=== PATIENT | female | born 1985 | race Caucasian/White ===

== ENCOUNTER 2021-05-20 13:34 | Outpatient (REF) | payer OTHER, SELFPAY ==
[2021-05-21 05:24] LABS: CT PCR NOT DETECTED (Not Detect.); NG PCR NOT DETECTED (Not Detect.)
[2021-05-22 17:00] LABS: HPV mRNA E6/E7 rflx Not Detected (Not Detected)
== END 2021-05-20 13:35 | disposition home or self-care (01) ==
LOC: HO.LAB 13:34
PROVIDERS: PCP Internal Medicine; Visit Provider Obstetrics & Gynecology
DX: Z01.419 Encounter for gynecological examination (general) (routine) without abnormal findings (principal); Z11.3 Encounter for screening for infections with a predominantly sexual mode of transmission; Z11.51 Encounter for screening for human papillomavirus (HPV); N94.6 Dysmenorrhea, unspecified
CPT/HCPCS: 87491; 87591; 87624; 88142

== ENCOUNTER 2021-05-27 09:35 | Outpatient (REF) | payer OTHER, SELFPAY ==
--- NOTE | ~2021-05-27 | US_ITS ---
EXAMINATION: US PELVIC AND TRANSVAGINAL CLINICAL INFORMATION: Dysmenorrhea. COMPARISON: None TECHNIQUE: Transabdominal and transvaginal pelvic ultrasound was performed. Transvaginal exam was performed for better visualization of the uterus and ovaries. FINDINGS: The uterus is anteverted and measures 8.4 x 4.4 x 5.5 cm in dimension. There is a 2 x 1.8 x 1.7 cm hypoechoic lesion in the posterior fundus of the uterus suggestive of a small fibroid. No other focal lesion is seen. The endometrium does not appear thickened measuring 0.3 cm. The ovaries are normal in size. The right ovary measures 3.4 x 2.3 x 2.5 cm and the left ovary measures 3.2 x 2.1 x 3 cm. The ovaries have a polycystic appearance with multiple small peripheral cysts or follicles. There is trace fluid in the pelvis US/US pelvic and transvaginal IMPRESSION: Small uterine fibroid. The ovaries are normal in size but have a polycystic appearance with multiple small peripheral cysts or follicles.
== END 2021-05-27 09:36 | disposition home or self-care (01) ==
LOC: HO.HMGCX 09:35
PROVIDERS: PCP Internal Medicine; Visit Provider Obstetrics & Gynecology
DX: N94.6 Dysmenorrhea, unspecified (principal)
CPT/HCPCS: 76830; 76856

== ENCOUNTER → 2021-06-03 15:52 | Outpatient (BNVA) | payer OTHER, SELFPAY | PROVIDERS: PCP Internal Medicine; Visit Provider Obstetrics & Gynecology ==

== ENCOUNTER 2022-07-24 08:56 | Outpatient (REF) | payer OTHER, SELFPAY ==
[2022-07-24 11:32] LABS: MANUAL DIFF FLAG NO
[2022-07-24 11:44] LABS: Basophils Percent Auto 0.8 % (0-2); Eosinophils Absolute Auto 0.2 X10*3/uL (0.0-0.4); Eosinophils Percent Auto 3.4 % (0-4); Hematocrit 39.9 % (37.0-47.0); Hemoglobin 13.3 g/dl (12.0-16.0); Imm Gran Abs Auto 0.01 X10*3/uL (0.00-0.03); Imm Gran Pct Auto 0.2 % (0.0-0.4); Lymphocytes Absolute Auto 1.3 X10*3/uL (1.2-4.9); Lymphocytes Percent Auto 26.5 % (20-40); Mean Corpuscular HGB Conc 33.3 g/dl (31.0-35.0); Mean Corpuscular Hemoglobin 31.4 pg (27.0-33.0); Mean Corpuscular Volume 94.3 fL (80.0-98.0); Monocytes Absolute Auto 0.5 X10*3/uL (0.1-1.2); Neutrophils Percent Auto 60.1 % (45-73); Platelet Count 243 X10*3/uL (160-400); Red Blood Count 4.23 X10*6/uL (4.20-5.50); Red Cell Distribution Width 12.6 % (11.0-16.0)
[2022-07-24 12:09] LABS: Alanine Aminotransferase 14 U/L (0-31); Albumin Level 4.7 g/dL (3.5-5.0); Alkaline Phosphatase 34 U/L (39-117); Anion Gap 15 (12-20); Aspartate Amino Transferase 15 U/L (5-31); Bilirubin Total 0.7 mg/dL (0.0-1.0); Blood Urea Nitrogen 14 mg/dL (9-16); Calcium 9.7 mg/dL (8.4-10.2); Carbon Dioxide 24 mmol/L (22-29); Chloride 104 mmol/L (96-108); Cholesterol 199 mg/dL; Estimated Glomerular Filt Rate > 60; Glucose Fasting 101 mg/dL (60-99); HDL Cholesterol 62 mg/dL; Iron 118 mcg/dL (30-160); LDL Cholesterol Calculated 127 mg/dl; Percent Iron Saturation 39 % (15-50); Sodium 139 mmol/L (135-145); Total Iron Binding Capacity 306 mcg/dL (228-428); Total Protein 7.6 g/dL (6.5-8.0); Triglycerides 51 mg/dL; Unsaturated Iron Binding 188 ug/dL
== END 2022-07-24 08:57 | disposition home or self-care (01) ==
LOC: HO.HMGCLDS 08:56
PROVIDERS: PCP Internal Medicine; Visit Provider Internal Medicine
DX: N94.6 Dysmenorrhea, unspecified (principal); D23.9 Other benign neoplasm of skin, unspecified
CPT/HCPCS: 36415; 80053; 80061; 83540; 85025

== ENCOUNTER 2022-12-09 11:40 | Outpatient (REF) | payer OTHER, SELFPAY ==
[2022-12-09 14:55] LABS: TSH reflex Free T4 1.49 uIU/mL (0.32-4.0); Vitamin D 25-OH Total 23.3 ng/mL (>30)
[2022-12-10 10:13] LABS: Follicle Stimulating Hormone 6.1 mIU/mL
== END 2022-12-09 11:41 | disposition home or self-care (01) ==
LOC: HO.HMGCLDS 11:40
PROVIDERS: PCP Internal Medicine; Visit Provider Internal Medicine
DX: E28.319 Asymptomatic premature menopause (principal); E55.9 Vitamin D deficiency, unspecified
CPT/HCPCS: 36415; 82306; 83001; 84443

== ENCOUNTER → 2023-03-02 11:51 | Outpatient (BNVA) | payer OTHER, SELFPAY | PROVIDERS: PCP Internal Medicine; Visit Provider Obstetrics & Gynecology ==

== ENCOUNTER 2023-03-16 11:29 | Outpatient (REF) | payer OTHER, SELFPAY ==
--- NOTE | ~2023-03-16 | US_ITS ---
EXAMINATION: US PELVIS CLINICAL INFORMATION: Myeloma; the last menstrual period is not specified. COMPARISON: Pelvic ultrasound dated 05/27/2021. TECHNIQUE: Ultrasound of the pelvis is performed using both transabdominal and transvaginal transducers along with Doppler. Transvaginal imaging is performed due to inadequate visualization transabdominally. FINDINGS: Uterus: The uterus is anteverted and measures 8.4 x 4.6 x 5.1 cm. The uterus is retroverted and retroflexed. The double wall endometrial thickness is 0.5 mm. The uterus is smooth in contour and has normal myometrial echogenicity. In the posterior fundus, a 1.8 x 1.1 x 1.4 cm myometrial fibroid is noted. This is heterogeneously hypoechoic. On the comparison examination, this measured 2.1 x 1.7 x 1.7 cm. Nabothian cysts are seen within the cervix. Adnexa: Both ovaries are visualized. There is normal color flow to the adnexa. There is no ovarian torsion. There is no pelvic ascites or fluid collection. Right ovary measures 3.3 x 3.1 x 4.0 cm, volume 21.8 mL. The right ovary contains a 2.1 x 2.4 x 2.7 cm dominant, simple follicle. Left ovary measures 3.3 x 2.3 x 2.1 cm, volume 8.3 mL. US/US pelvic and transvaginal IMPRESSION: 1. A uterine fibroid is redemonstrated, as detailed. 2. Nabothian cysts are seen within the cervix. 3. A right ovarian 2.7 cm dominant follicle is noted, which requires no imaging follow-up.
== END 2023-03-16 11:30 | disposition home or self-care (01) ==
LOC: HO.US 11:29
PROVIDERS: PCP Internal Medicine; Visit Provider Obstetrics & Gynecology
DX: D21.9 Benign neoplasm of connective and other soft tissue, unspecified (principal)
CPT/HCPCS: 76830; 76856

== ENCOUNTER → 2023-04-20 12:38 | Outpatient (BNVA) | payer OTHER, SELFPAY | PROVIDERS: PCP Internal Medicine; Visit Provider Obstetrics & Gynecology | DX: D25.9 Leiomyoma of uterus, unspecified (principal); N88.8 Other specified noninflammatory disorders of cervix uteri; N94.6 Dysmenorrhea, unspecified; Z80.3 Family history of malignant neoplasm of breast | CPT/HCPCS: 99212 ==

== ENCOUNTER 2023-05-04 11:10 | Outpatient (REF) | payer OTHER, SELFPAY ==
--- NOTE | ~2023-05-04 | MR_ITS ---
EXAMINATION: MR BREAST WITHOUT AND WITH CONTRAST, BILATERAL CLINICAL INFORMATION: High-risk screening. Family history of malignant neoplasm of breast. History of dense tissue. Patient questionnaire indicates mother age 28, maternal grandmother age 74, paternal aunt age 67. COMPARISON: None available. Mammography (nondiagnostic monitor review): None available. TECHNIQUE: A 1.5 T system and a dedicated breast coil. T1-weighted sequences without fat-saturation were obtained prior to the administration of contrast. Fat-saturated T1 and T2-weighted sequences were also acquired. The patient received 5.5 mL of IV gadolinium-based contrast, Gadavist. Multiple sequential dynamic T1-weighted sequences were obtained through both breasts with fat-saturation. Subtracted images were reviewed. CAD postprocessing with 3-D reconstructions, maximum intensity projections and kinetic analysis was performed by the interpreting radiologist at an independent workstation and reviewed as a portion of this exam. FINDINGS: Amount of Remaining Fibroglandular Signal: There is extreme fibroglandular tissue, which lowers the sensitivity of mammography (ACR BI-RADS breast composition category D).* Background Parenchymal Enhancement: Moderate. Symmetry of Background Enhancement: Symmetric. RIGHT BREAST: There is a slightly poorly defined 0.5 cm enhancing mass in the lower inner right breast 2.1 cm from the nipple (series 8, image 62; series 9, image 72). This demonstrates persistent enhancement. Masses: There are no other suspicious enhancing masses. Non-mass Enhancement: There is a 0.5 cm area of non-mass enhancement in the lower outer right breast, approximately 1 cm from the nipple (series 8, image 25; series 9, image 75). This demonstrates subthreshold persistent enhancement. Focus: There are 2 enhancing foci in the upper outer right breast which demonstrate persistent low-level enhancement and are nonspecific. Non-enhancing Findings: Associated Findings: There are no suspicious associated findings. Kinetic Curve Assessment: Initial Phase: There are no suspicious areas of color signal. Delayed Phase: There are no areas of washout kinetics. LEFT BREAST: There are no suspicious findings. Masses: There are no suspicious enhancing masses. Non-mass Enhancement: There is no suspicious non-mass enhancement. Focus: There is a 0.4 cm enhancing focus in the 4 o'clock position, 3.4 cm from the left nipple (series 9, image 28; series 8, image 245; series 100, image 65). This demonstrates plateau-type kinetics. Non-enhancing Findings: Associated Findings: There are no suspicious associated findings. Kinetic Curve Assessment: Initial Phase: There are no areas of suspicious color signal. Delayed Phase: There are no areas of washout kinetics. The axillary lymph nodes are morphologically normal. No suspicious internal mammary lymph nodes are seen. No suspicious abnormality in the visualized portions of chest or abdomen. MR/MR breast BI wo/w con IMPRESSION: No mammography available for comparison. There is a 0.5 cm enhancing mass in the lower inner right breast, 2.1 cm from the nipple. This is mildly suspicious. Recommend direct comparison with previous mammogram. Consider diagnostic tomosynthesis and targeted MR-directed right breast ultrasound. If there is no mammographic or sonographic correlate, consider MR-guided biopsy. Additional small areas of enhancement in each breast are probably benign and can be reexamined at the time of MRI in 6-12 months. ASSESSMENT: Right Breast: ACR BI-RADS 4: Suspicious abnormality - biopsy should be considered. Left Breast: ACR BI-RADS 3: Probably benign finding - short-interval follow up. RECOMMENDATIONS: Recommend direct comparison with previous tomosynthesis. Recommend diagnostic right mammography with tomosynthesis and MR-directed diagnostic right breast ultrasound. If there are no targetable abnormalities demonstrated on diagnostic evaluation, consider MR-guided biopsy right breast.
== END 2023-05-04 11:11 | disposition home or self-care (01) ==
LOC: HO.MRI 11:10
PROVIDERS: PCP Internal Medicine; Visit Provider Obstetrics & Gynecology
DX: N64.89 Other specified disorders of breast (principal); Z80.3 Family history of malignant neoplasm of breast
CPT/HCPCS: 77049; A9585

== ENCOUNTER 2023-05-15 09:49 | Outpatient (AMB) | payer OTHER, SELFPAY ==
--- NOTE | 2023-05-15 09:50 | MHC.OFFVIS ---
Intake Vital Signs 05/15/23 09:59 Height 5 ft 4.5 in Weight 124 lb 2 oz BMI 21.0 BP 121/75 Blood Pressure Location Lt brachial Position Sitting Pulse 93 Intake Visit Reasons: RT breast masses on MRI - family hx, breast ca Intake Note: Patient is seen in office for family history of breast cancer, following right breast masses on MRI. Patient c/o: does not feel any lump or bumps in the breast, does self exams every month, no prior breast surgeries or concerns, yes to breast feeding with no complications Wool Supplier Required: No Accompanied by: Self / Same As Patient Allergies lorazepam [From Ativan] Adverse Reaction (Mild, Verified 05/15/23 09:51) Vomiting sulfamethoxazole [From Bactrim] Adverse Reaction (Unknown, Verified 05/15/23 09:51) vomitting trimethoprim [From Bactrim] Adverse Reaction (Unknown, Verified 05/15/23 09:51) vomitting Medication List - Last Reconciled 05/18/23 by Miguel Seo MD No Known Home Meds HPI HPI Comments History of Present Illness Details 38-year-old female patient presenting with a recent breast MRI which revealed suspicious findings in the right breast. She has a strong family history of breast cancer including her mother developed breast cancer the age of 28, her maternal grandmother developed breast cancer at 74 and a paternal aunt developed breast cancer the age of 67. She denies a previous history of breast problems or breast surgery. She denies any breast symptoms in either breast. A recent MRI performed due to her high risk status performed on 05/04/2023 revealed a 0.5 cm enhancing mass in the lower inner right breast direct comparison with previous mammogram was recommended as well as considering diagnostic tomosynthesis and targeted MR directed right breast ultrasound. If there is no mammographic or sonographic correlate consider MR guided biopsy. She is and breastfed her 2 children. Menarche was at the age of 13. She is interested in having genetic testing as well. [facility] Medical History Calcific tendinitis Dysmenorrhea Left breast mass Normal Pap smear Surgical History H/O hernia repair History of endometrial ablation (2015) Family History Mother Breast cancer, Onset Age: 28 Father Asthma Substance use disorder Maternal Grandmother Breast cancer, Onset Age: 74 Paternal Aunt Breast cancer, Onset Age: 60 Paternal Uncle Substance use disorder Paternal Grandfather Substance use disorder Social History Household Members Other:: lives with partner, trying to quit smoking, cleans exercise, 2 boys (18,13) Housing: Apartment Alcohol intake: never Patient Tobacco Use Status: Former Tobacco user Quit Date: 10/27/2022 Tobacco use type: Cigarette Cigarettes Per Day: 5 Years Smoked: 23 e-Cigarette/Vaping Use: Never Used service: No Current occupational status: employed Cognitive needs: No Hearing needs: No Vision needs: No Female Reproductive History Menstrual Age of Menarche: 13 Date of last menstrual period: 09/25/16 Total pregnancies: 4 Number of Living Children: 2 Ab induced: 1 Ab spontaneous: 1 Review of Systems Const All systems reviewed & are unremarkable except as noted in HPI and below Denies chills, Denies fever(s), Denies headache(s), Denies poor appetite and Denies weakness ENT Denies headache(s) Card Denies chest pain, Denies irregular heart rhythm, Denies palpitations and Denies dyspnea Resp Denies cough, Denies excessive phlegm production and Denies dyspnea GI Denies abdominal pain, Denies bloating, Denies change in bowel habits, Denies constipation, Denies heartburn, Denies diarrhea, Denies nausea and Denies vomiting Denies urinary frequency Musc Denies back pain, Denies muscle weakness and Denies numbness Skin/Breast Denies changing lesions and Denies unusual bruising Neuro Denies headache(s), Denies numbness, Denies paresthesias and Denies weakness Psych Denies anxiety and Denies depression Endo Denies palpitations Shay/Lymph Denies lymphadenopathy Physical Exam Vital Signs: Last Vital Signs Pulse 93 05/15/23 09:59 BP 121/75 05/15/23 09:59 BMI result Body Mass Index 21.0 Const General: cooperative and no acute distress Nutritional Appearance: well nourished Orientation/consciousness: patient oriented x3 Limitations: no limitations HEENT Head: Yes normocephalic and Yes atraumatic Ears: hearing grossly normal bilaterally Chest Other: Left breast: No skin change, no nipple retraction, no nipple discharge, no palpable mass, no enlarged lymph nodes. Right breast: No skin change, no nipple retraction, no nipple discharge, no palpable mass, no enlarged lymph nodes Resp Effort & Inspection: normal respiratory effort, no audible wheezes, no cough and no respiratory distress Cardio Jugular venous distension: no JVD GI Inspection: Yes normal to inspection Skin Other: Warm, dry, no rash Neuro General: patient oriented x3 Extrem General: Yes no clubbing, cyanosis or edema Assessment & Plan Assessment & Plan (1) Abnormal magnetic resonance imaging of right breast: Code(s): R92.8 - Other abnormal and inconclusive findings on diagnostic imaging of breast Plan 38-year-old female patient considered to be high risk for breast cancer due to strong family history including her mother, grandmother and paternal aunt. She started high risk screening including breast MRI evaluation. This revealed a suspicious area in the right breast and diagnostic mammography and ultrasound is recommended the right breast. We discussed the possibility of either MR, ultrasound or stereotactic guided core biopsies based on the test results. We also discussed the risks and benefits of genetic testing in detail. She consents the genetic testing and will undergo this today. I suggested she return in approximately 6 weeks to review the genetic testing results. I will call her with the results of the mammogram and ultrasound to discuss next steps. She expressed understanding and agrees with the plan. Orders: Orders MM diagnostic mammo unilat RT 05/15/23 R92.8 - Other abnormal and inconclusive findings on diagnostic imaging of breast US breast RT limited 05/15/23 R92.8 - Other abnormal and inconclusive findings on diagnostic imaging of breast Quality Reporting (2020) Adult ([facility] ) Smoking risk assessment performed?: Yes Patient Tobacco Use Status: Former Tobacco user Coding Level of Care Code New Pt Level 4 (81839) Diagnoses Abnormal magnetic resonance imaging of right breast R92.8
[2023-05-15 09:59] VITALS: BP 121/75; PULSE 93; BMI 21.0
== END 2023-05-15 10:19 | disposition home or self-care (01) ==
PROVIDERS: PCP Internal Medicine; Visit Provider Surgery
DX: R92.8 Other abnormal and inconclusive findings on diagnostic imaging of breast (principal); Z80.3 Family history of malignant neoplasm of breast
CPT/HCPCS: 99204

== ENCOUNTER → 2023-05-15 09:49 | Outpatient (BNVA) | payer OTHER, SELFPAY | PROVIDERS: PCP Internal Medicine; Visit Provider Surgery | DX: R92.8 Other abnormal and inconclusive findings on diagnostic imaging of breast (principal); Z85.3 Personal history of malignant neoplasm of breast | CPT/HCPCS: 99202 ==

== ENCOUNTER 2023-05-25 09:24 | Outpatient (REF) | payer OTHER, SELFPAY ==
--- NOTE | ~2023-05-25 | MM_ITS ---
EXAMINATION: MM DIAGNOSTIC DIGITAL BREAST TOMOSYNTHESIS, BILATERAL WITH RIGHT BREAST ULTRASOUND CLINICAL INFORMATION: 38-year-old female who underwent bilateral breast MRI on 05/04/2023. At that time, a 5 mm enhancing mass was identified in the lower inner quadrant of the right breast approximately 2 cm from the nipple. A bilateral mammogram and targeted ultrasound was advised. In the MRI report, it is noted that if no mammographic and/or sonographic correlation can be found, then MRI guided biopsy is advised. This patient has a family history of pre and postmenopausal breast cancer. The lifetime risk of breast cancer based on the Tyrer-Cuzick Model is 20.3%. COMPARISON: Mammography: This is a baseline mammogram MAMMOGRAPHY: TECHNIQUE: Digital breast tomosynthesis is performed in both the craniocaudal and mediolateral oblique views along with computer-aided detection (CAD). Synthesized 2D images are generated from the tomosynthesis. CC and lateral spot compression of the lower inner quadrant of the right breast was performed. FINDINGS: There are scattered areas of fibroglandular density (ACR BI-RADS breast composition Category b). There are no significant masses, abnormal calcifications, or other abnormalities. ULTRASOUND: Sonography of the lower inner quadrant of the right breast was performed. There is no focal finding in this region. MM/MM tomosynthesis diagnostic BI IMPRESSION: No mammographic signs of malignancy. No sonographic or mammographic correlates with the recent MRI finding at the lower inner quadrant of the right breast. Per the MRI report, an MRI guided biopsy is advised Results are provided to the patient at time of visit by the technologist. ASSESSMENT: BI-RADS BI-RADS 1 - Negative THIS REPORT'S BI-RADS DESIGNATION RELATES TO THIS EXAMINATION HOWEVER PLEASE NOTE THAT THE MRI BI-RADS CODE IS A BI-RADS 4-SUSPICIOUS. THAT CODE SHOULD DICTATE MANAGEMENT. RECOMMENDATION: Biopsy recommended an MRI guided biopsy is advised. This patient's information was entered into a reminder system with a target due date for their next mammogram.
== END 2023-05-25 09:25 | disposition home or self-care (01) ==
LOC: HO.MAMMO 09:24
PROVIDERS: PCP Internal Medicine; Visit Provider Surgery
DX: R92.8 Other abnormal and inconclusive findings on diagnostic imaging of breast (principal)
CPT/HCPCS: 76642; 77062; 77066

== ENCOUNTER → 2023-05-25 10:00 | Outpatient (BNV) | payer OTHER, SELFPAY | PROVIDERS: PCP Internal Medicine; Visit Provider Radiology Diagnostic Radiology | DX: N63.14 Unspecified lump in the right breast, lower inner quadrant (principal) | CPT/HCPCS: 76642; 77066 ==

== ENCOUNTER 2023-06-26 08:57 | Outpatient (AMB) | payer OTHER, SELFPAY ==
--- NOTE | 2023-06-26 08:58 | MHC.OFFVIS ---
Intake Vital Signs 06/26/23 09:05 Height 5 ft 4 in Weight 125 lb BMI 21.5 BP 136/60 Blood Pressure Location Lt brachial Position Sitting Pulse 69 Intake Visit Reasons: Abnormal MRI RT breast, biopsy results Intake Note: Patient is seen in office for biopsy results, following abnormal MRI of the right breast. 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 She has a strong family history of breast cancer including her mother developed breast cancer the age of 28, her maternal grandmother developed breast cancer at 74 and a paternal aunt developed breast cancer the age of 67. She denies a previous history of breast problems or breast surgery. She denies any breast symptoms in either breast. A recent MRI performed due to her high risk status performed on 05/04/2023 revealed a 0.5 cm enhancing mass in the lower inner right breast direct comparison with previous mammogram was recommended as well as considering diagnostic tomosynthesis and targeted MR directed right breast ultrasound. If there is no mammographic or sonographic correlate consider MR guided biopsy. She is and breastfed her 2 children. Menarche was at the age of 13. She is interested in having genetic testing as well. Targeted ultrasound did not reveal any suspicious findings therefore an MR guided biopsy was performed at [facility] in [place]. She returns today review the results. Biopsy revealed a nodular area of adenosis, microcysts, dilated ducts, and ductal hyperplasia, moderate without atypia. Fibroadenoma is change and background of ductal hyperplasia moderate without atypia was identified. Findings reviewed with the patient today. In addition genetic testing was reviewed with the patient. Genetic testing performed on 05/15/2023 revealed no clinically significant mutations identified. Her breast cancer risk score for remaining lifetime risk was calculated at 31.6%. 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 Copy of the report was provided to the patient. [facility] Medical History Calcific tendinitis Dysmenorrhea Left breast mass Normal Pap smear Surgical History H/O hernia repair History of endometrial ablation (2016) Family History Mother Breast cancer, Onset Age: 28 Father Asthma Substance use disorder Maternal Grandmother Breast cancer, Onset Age: 74 Paternal Aunt Breast cancer, Onset Age: 60 Paternal Uncle Substance use disorder Paternal Grandfather Substance use disorder Social History Household Members Other:: lives with partner, trying to quit smoking, cleans exercise, 2 boys (18,13) Housing: Apartment Alcohol intake: never Patient Tobacco Use Status: Former Tobacco user Quit Date: 10/27/2022 Tobacco use type: Cigarette Cigarettes Per Day: 5 Years Smoked: 23 e-Cigarette/Vaping Use: Never Used service: No Current occupational status: employed Cognitive needs: No Hearing needs: No Vision needs: No Female Reproductive History Menstrual Age of Menarche: 13 Review of Systems Const All systems reviewed & are unremarkable except as noted in HPI and below Physical Exam Vital Signs: Last Vital Signs Pulse 69 06/26/23 09:05 BP 136/60 06/26/23 09:05 BMI result Body Mass Index 21.5 Const General: comfortable Nutritional Appearance: well nourished Chest Other: Exam deferred Skin Other: Warm, dry, no rash Extrem Other: No edema Assessment & Plan Assessment & Plan (1) Abnormal magnetic resonance imaging of right breast: Code(s): R92.8 - Other abnormal and inconclusive findings on diagnostic imaging of breast (2) FH: breast cancer: Code(s): Z80.3 - Family history of malignant neoplasm of breast Plan Patient returns to review the MRI biopsy results. Pathology revealed benign findings without atypia or malignancy. Genetic testing was reviewed as well. Patient remains on a high risk protocol due to her family history. Follow-up MRI in 6 months was recommended. Patient will be due for annual mammography in April 2024. I recommended follow-up examination in 6 months, sooner p.r.n.. She expressed understanding and agrees with the plan. Orders: Orders MR breast BI wo/w con Today R92.8 - Other abnormal and inconclusive findings on diagnostic imaging of breast, Z80.3 - Family history of malignant neoplasm of breast Quality Reporting (2019) Adult ([facility] 138/12/[facility]) Smoking risk assessment performed?: Yes Patient Tobacco Use Status: Former Tobacco user Coding Level of Care Code Est Pt Level 3 (00058) Diagnoses Abnormal magnetic resonance imaging of right breast R92.8 FH: breast cancer Z80.3
[2023-06-26 09:05] VITALS: BP 136/60; PULSE 69; BMI 21.5
== END 2023-06-26 09:17 | disposition home or self-care (01) ==
PROVIDERS: PCP Internal Medicine; Visit Provider Surgery
DX: R92.8 Other abnormal and inconclusive findings on diagnostic imaging of breast (principal); Z80.3 Family history of malignant neoplasm of breast
CPT/HCPCS: 99213

== ENCOUNTER → 2023-06-26 08:57 | Outpatient (BNVA) | payer OTHER, SELFPAY | PROVIDERS: PCP Internal Medicine; Visit Provider Surgery | DX: R92.8 Other abnormal and inconclusive findings on diagnostic imaging of breast (principal); Z80.3 Family history of malignant neoplasm of breast | CPT/HCPCS: 99212 ==

== ENCOUNTER 2023-07-27 12:51 | Outpatient (AMB) | payer OTHER, SELFPAY ==
[2023-07-27 13:04] VITALS: BP 90/58; PULSE 67; O2SAT 99; BMI 21.3
--- NOTE | 2023-07-27 13:04 | MHC.PC.OV ---
Vital Signs 07/27/23 13:04 Height 5 ft 4 in Weight 124 lb BMI 21.3 BP 90/58 L Blood Pressure Location Lt brachial Position Sitting Pulse 67 Pulse Source Pulse Oximeter Pulse Oximetry (%) 99 Oxygen Delivery Method Room Air Intake Visit Reasons: Annual PE Intake Note: Pt is here today for PE. Allergies lorazepam [From Ativan] Adverse Reaction (Mild, Verified 07/27/23 13:09) Vomiting sulfamethoxazole [From Bactrim] Adverse Reaction (Unknown, Verified 07/27/23 13:09) vomitting trimethoprim [From Bactrim] Adverse Reaction (Unknown, Verified 07/27/23 13:09) vomitting Medication List - Last Reconciled 07/27/23 by Mari Juarez MD ascorbic acid (vitamin C) mg PO cholecalciferol (vitamin D3) 25 mcg PO DAILY multivitamin 1 tab PO DAILY Tobacco use date assessed: 07/27/23 Dental Screening Dental Screen Date: 07/27/23 Did you have a dental visit in the last 12 months?: Yes Did you have a dental problem in the last 6 months where you did not have access to dental care?: No Was dental information given to patient?: Patient has dentist HPI Annual PE HPI Details Patient presents for physical PFSH Medical History Left breast mass Dysmenorrhea Normal Pap smear Calcific tendinitis Surgical History History of endometrial ablation (2015) H/O hernia repair Family History Mother Breast cancer, Onset Age: 28 Father Asthma Substance use disorder Maternal Grandmother Breast cancer, Onset Age: 74 Paternal Aunt Breast cancer, Onset Age: 60 Paternal Uncle Substance use disorder Paternal Grandfather Substance use disorder Social History Household Members Other:: lives with partner, trying to quit smoking, cleans exercise, 2 boys (18,13) Housing: Apartment Alcohol intake: never Patient Tobacco Use Status: Former Tobacco user Quit Date: 10/27/2022 Tobacco use type: Cigarette Cigarettes Per Day: 5 Years Smoked: 23 e-Cigarette/Vaping Use: Never Used service: No Current occupational status: employed Cognitive needs: No Hearing needs: No Vision needs: No Female Reproductive History Menstrual Age of Menarche: 13 Questionnaire Thrive Questionnaire Date Thrive assessed: 12/09/22 I am a: Patient What is your living situation today?: I have a steady place to live Within the past 12 months, did the food you bought not last and you didn't have the money to get more?: Never true Within the past 12 months, did you worry whether your food would run out before you got money to buy more?: Never true AUDIT C Alcohol Use Questionnaire (AUDIT-C) 1. How often do you have a drink containing alcohol?: 2-4 times a month 2. How many drinks containing alcohol do you have on a typical day when you are drinking?: 1 or 2 3. How often do you have six or more drinks on one occasion?: Never Total Score: 2 MARY GRACE-7 AMB Questionnaire MARY GRACE-7 Date MARY GRACE - 7 assessed: 12/09/22 Feeling nervous, anxious, or on edge: 1 = Several days Not being able to stop or control worryin = Not at all Worrying too much about different things: 0 = Not at all Trouble relaxin = Several days Being so restless that it is hard to sit still: 1 = Several days Becoming easily annoyed or irritable: 0 = Not at all Feeling afraid as if something awful might happen: 0 = Not at all Total MARY GRACE-7 score (0-4 normal; 5-9 mild; 10-14 moderate; 15-21 severe): 3 Source: Developed by Drs. Jefry Saldivar, Stephanie Wesley, Christiano Huynh and colleagues, with an educational jake from [employer]. Review of Systems Const All systems reviewed & are unremarkable except as noted in HPI and below Reports no additional complaints Eyes Reports no additional complaints ENT Reports no additional complaints Card Reports no additional complaints Resp Reports no additional complaints GI Reports no additional complaints Reports no additional complaints Physical exam (Primary Care) Vital Signs: Last Vital Signs Pulse 67 07/27/23 13:04 BP 90/58 L 07/27/23 13:04 Pulse Ox 99 07/27/23 13:04 Oxygen Delivery Method Room Air 07/27/23 13:04 BMI result Body Mass Index 21.3 Tobacco/Smoking Status: Tobacco use Status Tobacco use date assessed 07/27/23 07/27/23 13:15 Patient Tobacco Use Status Former Tobacco user 07/27/23 13:04 Tobacco use type Cigarette 07/27/23 13:04 e-Cigarette/Vaping Use Never Used 07/27/23 13:04 Thrive Assessment: Date of Thrive Assessment Date Thrive assessed 12/09/22 07/27/23 13:04 Const General: no acute distress HENMT Head: Yes normal to inspection Face and sinus: Yes normal facial exam Eyes General: appearance normal, both eyes and all related structures Neck Neck: Yes no lymphadenopathy and Yes supple Resp Effort & Inspection: normal respiratory effort Auscultation: clear to auscultation bilaterally Cardio Rhythm: regular rhythm Heart sounds: S1 normal heart sound present and S2 normal heart sound present GI Inspection: Yes normal to inspection Palpation (GI): Soft to palpation Percussion: Yes normal to percussion Auscultation: normal bowel sounds Assessment and Plan Assessment & Plan (1) Annual physical exam: Code(s): Z00.00 - Encounter for general adult medical examination without abnormal findings Plan: Well-balanced diet ago physical activity discussed with the patient. She will follow-up with breast surgeon [facility] for annual mammograms and breast MRIs because of family history of breast cancer (2) Vitamin D deficiency: Code(s): E55.9 - Vitamin D deficiency, unspecified Orders: Orders Comprehensive [place]. Panel Fast Today E55.9 - Vitamin D deficiency, unspecified, Z00.00 - Encounter for general adult medical examination without abnormal findings Complete Blood Count Auto Diff Today E55.9 - Vitamin D deficiency, unspecified, Z00.00 - Encounter for general adult medical examination without abnormal findings TSH reflex Free T4 Today E55.9 - Vitamin D deficiency, unspecified, Z00.00 - Encounter for general adult medical examination without abnormal findings Lipid Panel Today E55.9 - Vitamin D deficiency, unspecified, Z00.00 - Encounter for general adult medical examination without abnormal findings Vitamin D 25-OH Total Today E55.9 - Vitamin D deficiency, unspecified, Z00.00 - Encounter for general adult medical examination without abnormal findings Coding Level of Care Code Est Pt Prev Care 18-39y(02357) Diagnoses Annual physical exam Z00.00 Vitamin D deficiency E55.9
== END 2023-07-27 13:53 | disposition home or self-care (01) ==
PROVIDERS: PCP Internal Medicine; Visit Provider Internal Medicine
DX: Z00.00 Encounter for general adult medical examination without abnormal findings (principal); E55.9 Vitamin D deficiency, unspecified
CPT/HCPCS: 99395

== ENCOUNTER 2023-12-25 08:52 | Outpatient (AMB) | payer OTHER, SELFPAY ==
--- NOTE | 2023-12-25 08:53 | A.OFFVIS_ITS ---
Intake Vital Signs 3 12/25/23 09:01 Height 5 ft 4 in Weight 127 lb BMI 21.8 BP 134/79 Blood Pressure Location Lt brachial Position Sitting Pulse 91 Intake Visit Reasons: Breast exam, 6 mo follow up Intake Note: Patient is seen in office for 6 month follow up visit, breast exam. Pt c/o: denies any concerns regarding the breast mm: 05/25/23 MRI:06/15/23 Loan Secretary Required: No Accompanied by: Self / Same As Patient Allergies lorazepam [From Ativan] Adverse Reaction (Mild, Verified 12/25/23 09:10) Vomiting sulfamethoxazole [From Bactrim] Adverse Reaction (Unknown, Verified 12/25/23 09:10) vomitting trimethoprim [From Bactrim] Adverse Reaction (Unknown, Verified 12/25/23 09:10) vomitting HPI HPI Comments 2 History of Present Illness0 Details 38-year-old female patient returning for high risk breast examination. She has a strong family history of breast cancer including her mother who developed breast cancer at the age of 28 and her maternal grandmother who developed breast cancer at the age of 74. She also has a paternal aunt who developed breast cancer at the age of 67. The patient has a previous history of an abnormal breast MRI which required an MR guided biopsy performed last year at [facility] in [place] pathology revealed a nodular area of adenosis, microcysts, dilated ducts, and ductal hyperplasia with no atypia. Fibroadenoma it was change and a background of ductal hyperplasia without atypia was also identified. She underwent genetic testing on 05/15/2023 which revealed no clinically significant mutations. 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 Her breast cancer risk score was calculated at 31.6%. She returns today for routine breast examination. Denies any new symptoms in either breast. She reports that she is scheduled for her annual mammogram this month at [facility]. [facility] Medical History (Updated 12/25/23 @ 09:18 by Miguel Seo MD) FH: breast cancer Left breast mass Dysmenorrhea Normal Pap smear Calcific tendinitis Surgical History History of endometrial ablation (2015) H/O hernia repair Family History Mother Breast cancer, Onset Age: 28 Father Asthma Substance use disorder Maternal Grandmother Breast cancer, Onset Age: 74 Paternal Aunt Breast cancer, Onset Age: 60 Paternal Uncle Substance use disorder Paternal Grandfather Substance use disorder Social History Household Members Other:: lives with partner, trying to quit smoking, cleans exercise, 2 boys (18,13) Housing: Apartment Alcohol intake: never Patient Tobacco Use Status: Former Tobacco user Quit Date: 10/27/2022 Tobacco use type: Cigarette Cigarettes Per Day: 5 Years Smoked: 23 e-Cigarette/Vaping Use: Never Used service: No Current occupational status: employed Cognitive needs: No Hearing needs: No Vision needs: No Female Reproductive History Menstrual Age of Menarche: 13 Review of Systems Const All systems reviewed & are unremarkable except as noted in HPI and below Physical Exam Const General: comfortable Nutritional Appearance: well nourished Chest Other: Left breast: No skin change, no nipple retraction, no nipple discharge, no palpable mass, no enlarged lymph nodes. Right breast: No skin change, no nipple retraction, no nipple discharge, no palpable mass, no enlarged lymph nodes Chest/axillae images: 2 1. Biopsy site from needle core biopsy right breast 03:00 o'clock Skin Other: Warm, dry, no rash Extrem Other: No edema Assessment & Plan Assessment & Plan (1) At high risk for breast cancer: Code(s): Z91.89 - Other specified personal risk factors, not elsewhere classified (2) FH: breast cancer: Code(s): Z80.3 - Family history of malignant neoplasm of breast Plan 30-year-old female patient presenting with a strong family history of breast cancer returning for a high risk breast exam. She denies any new breast symptoms and generally feels well. She is due for her annual mammogram this month and will be due for a follow-up breast MRI in April 2024. Examination today revealed no suspicious findings in either breast. I recommended follow-up examination in 6 months. She is welcome to call sooner for any new concerns. Quality Reporting (2019) Adult ([facility] 138/12/17/68) Smoking risk assessment performed?: Yes Patient Tobacco Use Status: Former Tobacco user Coding Level of Care Code Est Pt Level 3 (98616) Diagnoses At high risk for breast cancer Z91.89 FH: breast cancer Z80.3
[2023-12-25 09:01] VITALS: BP 134/79; PULSE 91; BMI 21.8
== END 2023-12-25 09:11 | disposition home or self-care (01) ==
PROVIDERS: PCP Internal Medicine; Visit Provider Surgery
DX: Z80.3 Family history of malignant neoplasm of breast (principal); Z91.89 Other specified personal risk factors, not elsewhere classified
CPT/HCPCS: 99213

== ENCOUNTER → 2023-12-25 08:52 | Outpatient (BNVA) | payer OTHER, SELFPAY | PROVIDERS: PCP Internal Medicine; Visit Provider Surgery | DX: Z91.89 Other specified personal risk factors, not elsewhere classified (principal); Z80.3 Family history of malignant neoplasm of breast | CPT/HCPCS: 99212 ==

== ENCOUNTER 2024-03-07 10:44 | Outpatient (AMB) | payer OTHER, SELFPAY ==
--- NOTE | 2024-03-07 10:47 | MHC.OFFVIS ---
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 No complaints. Last Pap/HPV was negative in 05/15 Last Mammogram was [facility] 2 in 01[facility]16 [facility] Medical History FH: breast cancer Left breast mass Dysmenorrhea Normal Pap smear Calcific tendinitis Surgical History History of endometrial ablation (2015) H/O hernia repair Family History Mother Breast cancer, Onset Age: 28 Father Asthma Substance use disorder Maternal Grandmother Breast cancer, Onset Age: 74 Paternal Aunt Breast cancer, Onset Age: 60 Paternal Uncle Substance use disorder Paternal Grandfather Substance use disorder Social History Household Members Other:: lives with partner, trying to quit smoking, cleans exercise, 2 boys (18,13) Housing: Apartment Alcohol intake: never Patient Tobacco Use Status: Former Tobacco user Quit Date: 10/27/2022 Tobacco use type: Cigarette Cigarettes Per Day: 5 Years Smoked: 23 e-Cigarette/Vaping Use: Never Used service: No Current occupational status: employed Cognitive needs: No Hearing needs: No Vision needs: No Female Reproductive History Menstrual Age of Menarche: 13 Date of last pap smear: 05/21/21 Review of Systems Const All systems reviewed & are unremarkable except as noted in HPI and below Card Reports as per HPI Resp Reports as per HPI GI Reports as per HPI and Reports no additional complaints Reports as per HPI Physical Exam Vital Signs: Last Vital Signs BP 108/66 05/13/24 10:48 BMI result Body Mass Index 20.9 Const General: cooperative, healthy appearing and comfortable Chest Chest palpation & inspection: normal inspection of the chest and normal palpation of entire chest wall Breast/axilla inspection: normal inspection of the breasts and normal inspection of the axillae Breast/axilla palpation: normal palpation of the breasts, normal palpation of the axillae and no axillary lymphadenopathy Resp Effort & Inspection: normal respiratory effort Auscultation: clear to auscultation bilaterally Percussion: percussion normal Cardio Palpation: normal PMI Rate: regular rate Rhythm: regular rhythm Heart sounds: no murmurs and no rubs Peripheral pulses: Peripheral pulses 2+ throughout GI Inspection: Yes normal to inspection Palpation (GI): Soft to palpation, nontender, no guarding, not rigid and No hepatosplenomegaly present Percussion: Yes normal to percussion Auscultation: normal bowel sounds Rectal Exam - Female: deferred General: Yes bladder normal to palpation External Female Exam: No lesion Speculum Exam - Vagina: normal appearance of the vagina, normal palpation, normal vaginal discharge and not erythematous Speculum Exam - Cervix: normal appearance of the cervix and normal palpation Bimanual exam- vagina & uterus: normal bimanual exam, normal palpation, uterine size normal, bladder normal to palpation, consistency normal and normal palpation Bimanual Exam- Adnexa, other: normal adnexae, no masses and no tenderness Quality Reporting (2019) Adult ([facility] 138//) Smoking risk assessment performed?: Yes Patient Tobacco Use Status: Former Tobacco user Assessment & Plan Assessment & Plan (1) Well woman exam: Code(s): Z01.419 - Encounter for gynecological examination (general) (routine) without abnormal findings Category: Medical Plan: Cotesting not indicated this year. Instructions given to patient to schedule next screening Mammogram in 01/17. Counseled the patient about the recommended dietary allowance of 1000 mg of Calcium & 600 IU of vitamin D. The patient was instructed to perform monthly self-breast exams and to schedule an annual exam in a year; All questions answered and the patient verbalized understanding. Instructed the patient to schedule annual exam in a year Coding Level of Care Code Est Pt Prev Care 18-39y(53274) Diagnoses Well woman exam Z01.419
[2024-03-07 10:48] VITALS: BP 108/66; BMI 20.9
== END 2024-03-07 11:02 | disposition home or self-care (01) ==
PROVIDERS: PCP Internal Medicine; Visit Provider Obstetrics & Gynecology
DX: Z01.419 Encounter for gynecological examination (general) (routine) without abnormal findings (principal)
CPT/HCPCS: 99395

== ENCOUNTER → 2024-03-07 10:44 | Outpatient (BNVA) | payer OTHER, SELFPAY | PROVIDERS: PCP Internal Medicine; Visit Provider Obstetrics & Gynecology | DX: Z01.419 Encounter for gynecological examination (general) (routine) without abnormal findings (principal) | CPT/HCPCS: 99395 ==

== ENCOUNTER 2024-07-22 08:51 | Outpatient (AMB) | payer OTHER, SELFPAY ==
--- NOTE | 2024-07-22 08:52 | A.OFFVIS_ITS ---
Vital Signs 3 07/22/24 08:53 Height 5 ft 4 in Weight 120 lb 2.431 oz BMI 20.6 BP 126/62 Blood Pressure Location Rt brachial Position Sitting Pulse 77 Intake Visit Reasons: Breast exam, 6 mo follow up Intake Note: This patient presents for six month follow-up breast examination. Pt c/o; reports no breast complaints at this time. Relay Tester Required: No Accompanied by: Self / Same As Patient Allergies lorazepam [From Ativan] Adverse Reaction (Mild, Verified 07/22/24 08:59) Vomiting sulfamethoxazole [From Bactrim] Adverse Reaction (Unknown, Verified 07/22/24 08:59) vomitting trimethoprim [From Bactrim] Adverse Reaction (Unknown, Verified 07/22/24 08:59) vomitting HPI Comments Details: 39-year-old female patient returning for high risk breast examination. She has a strong family history of breast cancer including her mother who developed breast cancer at the age of 28 and her maternal grandmother who developed breast cancer at the age of 74. She also has a paternal aunt who developed breast cancer at the age of 67. The patient has a previous history of an abnormal breast MRI which required an MR guided biopsy performed last year at [facility] in [place] pathology revealed a nodular area of adenosis, microcysts, dilated ducts, and ductal hyperplasia with no atypia. Fibroadenoma it was change and a background of ductal hyperplasia without atypia was also identified. She underwent genetic testing on 05/15/2023 which revealed no clinically significant mutations. 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 Her breast cancer risk score was calculated at 31.6%. She again had a suspicious finding by MRI in the right breast underwent MR guided biopsy at [facility] on 06/06/2024. Subsequent pathology revealed benign breast tissue with adenosis and dense stromal fibrosis. Six-month follow-up MRI is recommended. She returns today for routine breast examination. Denies any new symptoms in either breast. She reports that she is scheduled for her annual mammogram this month at [facility]. [facility] Medical History FH: breast cancer Left breast mass Dysmenorrhea Normal Pap smear Calcific tendinitis Surgical History History of endometrial ablation (2016) H/O hernia repair Family History Mother Breast cancer, Onset Age: 28 Father Asthma Substance use disorder Maternal Grandmother Breast cancer, Onset Age: 74 Paternal Aunt Breast cancer, Onset Age: 60 Paternal Uncle Substance use disorder Paternal Grandfather Substance use disorder Social History Household Members Other:: lives with partner, trying to quit smoking, cleans exercise, 2 boys (18,13) Housing: Apartment Alcohol intake: never Patient Tobacco Use Status: Former Tobacco user Tobacco use type: Cigarette Cigarettes Per Day: 5 Years Smoked: 23 e-Cigarette/Vaping Use: Never Used service: No Current occupational status: employed Cognitive needs: No Hearing needs: No Vision needs: No Female Reproductive History Menstrual Age of Menarche: 13 Review of Systems Const All systems reviewed & are unremarkable except as noted in HPI and below Physical Exam Vital Signs: Last Vital Signs Pulse 77 07/22/24 08:53 BP 126/62 07/22/24 08:53 BMI result Body Mass Index 20.6 Const General: comfortable Nutritional Appearance: well nourished Chest Other: Left breast: No skin change, no nipple retraction, no nipple discharge, no palpable mass, no enlarged lymph nodes. Right breast: No skin change, no nipple retraction, no nipple discharge, no palpable mass, no enlarged lymph nodes Chest/axillae images: 2 1. Recent biopsy site 03:00 o'clock location right breast Resp Effort & Inspection: normal respiratory effort, no audible wheezes, no cough and no respiratory distress Skin Other: Warm, dry, no rash Extrem Other: No edema Quality Reporting (2020) Adult ([facility] 138/12/17/68) Smoking risk assessment performed?: Yes Patient Tobacco Use Status: Former Tobacco user Assessment & Plan Assessment & Plan (1) FH: breast cancer: Code(s): Z80.3 - Family history of malignant neoplasm of breast Category: Medical (2) At high risk for breast cancer: Code(s): Z91.89 - Other specified personal risk factors, not elsewhere classified Category: Medical (3) Abnormal magnetic resonance imaging of right breast: Code(s): R92.8 - Other abnormal and inconclusive findings on diagnostic imaging of breast Category: Medical Plan 39-year-old female patient presenting with a strong family history of breast cancer returning for a high risk breast exam. She denies any new breast symptoms and generally feels well. She recently underwent an MR guided biopsy of the right breast which revealed benign breast tissue she tolerated this procedure much better than the previous procedure. A six-month follow-up MRI is recommended. She will be due for her annual mammogram at this time as well. Examination today revealed no suspicious findings in either breast. I recommended follow-up examination in 6 months. She is welcome to call sooner for any new concerns. Orders: Orders 2 MM diagnostic mammo BI 01/04/25 Z80.3 - Family history of malignant neoplasm of breast, Z91.89 - Other specified personal risk factors, not elsewhere classified MR breast BI wo/w con 01/04/25 R92.8 - Other abnormal and inconclusive findings on diagnostic imaging of breast, Z80.3 - Family history of malignant neoplasm of breast, Z91.89 - Other specified personal risk factors, not elsewhere classified Coding Level of Care Code Est Pt Level 3 (18245) Diagnoses FH: breast cancer Z80.3 At high risk for breast cancer Z91.89 Abnormal magnetic resonance imaging of right breast R92.8
[2024-07-22 08:53] VITALS: BP 126/62; PULSE 77; BMI 20.6
== END 2024-07-22 09:08 | disposition home or self-care (01) ==
PROVIDERS: PCP Internal Medicine; Visit Provider Surgery
DX: Z80.3 Family history of malignant neoplasm of breast (principal); Z91.89 Other specified personal risk factors, not elsewhere classified; R92.8 Other abnormal and inconclusive findings on diagnostic imaging of breast
CPT/HCPCS: 99213

== ENCOUNTER → 2024-07-22 08:51 | Outpatient (BNVA) | payer OTHER, SELFPAY | PROVIDERS: PCP Internal Medicine; Visit Provider Surgery | DX: R92.8 Other abnormal and inconclusive findings on diagnostic imaging of breast (principal); Z91.89 Other specified personal risk factors, not elsewhere classified; Z80.3 Family history of malignant neoplasm of breast | CPT/HCPCS: 99212 ==

== ENCOUNTER 2025-01-02 13:06 | Outpatient (AMB) | payer OTHER, SELFPAY ==
[2025-01-02 13:27] VITALS: BP 120/68; PULSE 79; RESP 18; O2SAT 99; BMI 21.5
--- NOTE | 2025-01-02 13:27 | A.OFFPC_ITS ---
Vital Signs 01/02/25 13:27 Height 5 ft 4 in Weight 125 lb 2 oz BMI 21.5 BP 120/68 Blood Pressure Location Rt brachial Position Sitting Respiration 18 Pulse 79 Pulse Source Pulse Oximeter Pulse Oximetry (%) 99 Oxygen Delivery Method Room Air Intake Visit Reasons: Annual PE Intake Note: Pt is here today for her annual physical. Allergies lorazepam [From Ativan] Adverse Reaction (Mild, Verified 01/02/25 13:27) Vomiting sulfamethoxazole [From Bactrim] Adverse Reaction (Unknown, Verified 01/02/25 13:27) vomitting trimethoprim [From Bactrim] Adverse Reaction (Unknown, Verified 01/02/25 13:27) vomitting Tobacco use date assessed: 01/02/25 Dental Screening Dental Screen Date: 01/02/25 Did you have a dental visit in the last 12 months?: Yes Did you have a dental problem in the last 6 months where you did not have access to dental care?: No Was dental information given to patient?: Patient has dentist HPI Annual PE HPI Details Patient presents for physical PFSH Medical History FH: breast cancer Left breast mass Dysmenorrhea Normal Pap smear Calcific tendinitis Surgical History History of endometrial ablation (2015) H/O hernia repair Family History Mother Breast cancer, Onset Age: 28 Father Asthma Substance use disorder Maternal Grandmother Breast cancer, Onset Age: 74 Paternal Aunt Breast cancer, Onset Age: 60 Paternal Uncle Substance use disorder Paternal Grandfather Substance use disorder Social History Household Members Other:: lives with partner, trying to quit smoking, cleans exercise, 2 boys (18,13) Housing: Apartment Alcohol intake: never Patient Tobacco Use Status: Former Tobacco user Tobacco use type: Cigarette Cigarettes Per Day: 5 Years Smoked: 23 e-Cigarette/Vaping Use: Never Used service: No Current occupational status: employed Cognitive needs: No Hearing needs: No Vision needs: No Female Reproductive History Menstrual Age of Menarche: 13 Questionnaire PHQ-9 Over the last 2 weeks, how often have you been bothered by any of the following problems? 1. Little interest or pleasure in doing things: several days 2. Feeling down, depressed, or hopeless: several days 3. Trouble falling or staying asleep, or sleeping too much: not at all 4. Feeling tired or having little energy: several days 5. Poor appetite or overeating: not at all 6. Feeling bad about yourself - or that you are a failure or have let yourself or your family down: not at all 7. Trouble concentrating on things, such as reading the newspaper or watching television: not at all 8. Moving or speaking so slowly that other people could have noticed. Or the opposite - being so fidgety or restless that you have been moving around a lot more than usual: not at all 9. Thoughts that you would be better off or of hurting yourself in some way: not at all Total score: 3 Depression Screening Interpretation: Negative Depression Screening Done: Yes 70598 - PHQ-9 Billing: Yes Source: Developed by Drs. Jefry Saldivar, Stephanie Wesley, Christiano Huynh and colleagues, with an educational jake from [employer] Thrive Questionnaire Date Thrive assessed: 01/02/25 I am a: Patient What is your living situation today?: I have a steady place to live Within the past 12 months, did the food you bought not last and you didn't have the money to get more?: Never true Within the past 12 months, did you worry whether your food would run out before you got money to buy more?: Sometimes True Do you have trouble paying for medicines?: No Do you have trouble getting transportation to medical appointments?: No Do you have trouble paying your heating and electricity bill?: I choose not to answer this question Do you have trouble taking care of your child, family member or friend?: No Do you have trouble with day-to-day activities such as bathing, preparing meals, shopping, managing finances, etc.?: No Are you currently unemployed and looking for a job?: No Are you interested in more education?: I choose not to answer this question Please select the resources that you would like help with: None Currently or been in a relationship where the following occur: I choose not to answer THRIVE Score: 1 AUDIT C Alcohol Use Questionnaire (AUDIT-C) 1. How often do you have a drink containing alcohol?: Monthly or less 2. How many drinks containing alcohol do you have on a typical day when you are drinking?: 1 or 2 3. How often do you have six or more drinks on one occasion?: Never Total Score: 1 Score Reviewed/Action Taken: Yes MARY GRACE-7 AMB Questionnaire MARY GRACE-7 Date MARY GRACE - 7 assessed: 01/02/25 Feeling nervous, anxious, or on edge: 1 = Several days Not being able to stop or control worryin = Not at all Worrying too much about different things: 0 = Not at all Trouble relaxin = Several days Being so restless that it is hard to sit still: 1 = Several days Becoming easily annoyed or irritable: 0 = Not at all Feeling afraid as if something awful might happen: 0 = Not at all Total MARY GRACE-7 score (0-4 normal; 5-9 mild; 10-14 moderate; 15-21 severe): 3 Source: Developed by Drs. Jefry Saldivar, Stephanie Wesley, Christiano Huynh and colleagues, with an educational jake from [employer] MARY GRACE-7 Assessment Billing MARY GRACE-7 Assessment Tool: MARY GRACE-7 Assessment 62828 Review of Systems Const All systems reviewed & are unremarkable except as noted in HPI and below Eyes Reports no additional complaints ENT Reports no additional complaints Card Reports no additional complaints Resp Reports no additional complaints GI Reports no additional complaints Reports no additional complaints Physical exam (Primary Care) Vital Signs: Last Vital Signs Pulse 79 01/02/25 13:27 Resp 18 01/02/25 13:27 BP 120/68 01/02/25 13:27 Pulse Ox 99 01/02/25 13:27 Oxygen Delivery Method Room Air 01/02/25 13:27 BMI result Body Mass Index 21.5 Tobacco/Smoking Status: Tobacco use Status Tobacco use date assessed 01/02/25 01/02/25 13:30 Patient Tobacco Use Status Former Tobacco user 01/02/25 13:30 Tobacco use type Cigarette 01/02/25 13:30 e-Cigarette/Vaping Use Never Used 01/02/25 13:30 PHQ-9: PHQ-9 Score PHQ-9: Total score 3 01/02/25 13:30 Depression Screening Interpretation: Negative Thrive Assessment: Date of Thrive Assessment Date Thrive assessed 01/02/25 01/02/25 13:30 Currently or been in a relationship where the following occur: I choose not to answer Const General: no acute distress HENMT Head: Yes normal to inspection Neck Neck: Yes supple Resp Effort & Inspection: normal respiratory effort Auscultation: clear to auscultation bilaterally Cardio Rhythm: regular rhythm Heart sounds: S1 normal heart sound present and S2 normal heart sound present GI Inspection: Yes normal to inspection Palpation (GI): Soft to palpation Percussion: Yes normal to percussion Auscultation: normal bowel sounds Coding Level of Care Code Est Pt Prev Care 18-39y(33559) Diagnoses Annual physical exam Z00. Additional Codes MARY GRACE-7 Assessment Billing - MARY GRACE-7 Assessment Tool: MARY GRACE-7 Assessment 58521 ([id number]) PHQ-9 - 01797 - PHQ-9 Billing: Yes ([id number]) Assessment & Plan Assessment & Plan (1) Annual physical exam: Code(s): Z00.00 - Encounter for general adult medical examination without abnormal findings Category: Medical Plan: Well-balanced diet regular physical activity discussed with the patient she will return for fasting blood work. Patient is established with surgeon for strong family history of breast CA and abnormal breast MRI. Orders: Orders Comprehensive Isle. Panel Fast Today Z00.00 - Encounter for general adult medical examination without abnormal findings Vitamin D 25-OH Total Today Z00.00 - Encounter for general adult medical examination without abnormal findings Complete Blood Count Auto Diff Today Z00.00 - Encounter for general adult medical examination without abnormal findings Lipid Panel Today Z00.00 - Encounter for general adult medical examination without abnormal findings UA w Microscopic Today Z00.00 - Encounter for general adult medical examination without abnormal findings
--- OUTSIDE RECORDS SUMMARY | 2025-01-02 14:46 | XMS_ITS | Encounter Summary ---
Author Organization [facility] Address [address] [place] [address] Phone Care Team Providers Care Aix System Administrator Name Role Phone Jack Junior MD Unavailable Aryan Arriaga MD Unavailable [phone] Dulce Maria Odom MD Unavailable [email or web address] Barbra Fitch MD Primary Care Provider [phone] Barbra Fitch MD Primary Care Provider [phone] Mari Juarez MD Primary Care Provider [phone] Encounter Details Date Type Department Care Team (Late st Contact Info) Description 09/12/2019 Procedure Pass OR Admitting Dept - [facility] Department [address] [place] [address] Social History Tobacco Use Types Packs/Day Years Used Date Smoking Tobacco: Former Cigarettes 0.3 22.2 0 06/23/1997 - 09/06/2019 Smokeless Tobacco: Never Alcohol Use Standard Drinks/Week Comments Yes 0 (1 standard drink = 0.6 oz pur e alcohol) monthly socailly Sex and Gender Information Value Date Recorded Sex Assigned at Female 11/05/2020 9:06 AM EST Gender Identity Female 11/05/2020 9:06 AM EST Sexual Orientation Straight 11/05/2020 9: 06 AM EST documented as of this encounter Plan of Treatment Upcoming Encounters Date Type Department Care Team (Late Contact Info) Description 10/31/2024 Procedure Pass [address] [place] [address] 04/17/2025 12:45 PM EDT Appointment [address] [place] [address] Mari Juarez MD [address] [place] [address] documented as of this encounter Visit Diagnoses Not on filedocumented in this encounter Additional Health Concerns Assessment Noted Time PHQ-2 Depression Total Score: 0 06/23/20 19 3:05 PM EDT documented as of this encounter Care Teams Aix System Administrator Relationship Specialty Start Date End Date Barbra Fitch MD [email or web address] PCP - General Family Medicine 04/27/18 09/29/19 Barbra Fitch MD [email or web address] PCP - General Family Medicine 09/30/19 11/16/22 Mari Juarez MD [address] [place] [address] PCP - General Internal Medicine 11/17/22 Jack Junior MD [address] [place] [address] [email or web address] Historical LMR Provider 08/15/17 11/02/21 Aryan Arriaga MD [address] [place] [address] [address] [place] [address] [email or web address] Historical LMR Provider 08/15/17 11/02/21 Dulce Maria Odom MD Historical LMR Provider 08/15/17 2 documented as of this encounter Additional Source Comments The information contained in this document represents components of the legal health record. It is not the complete legal health record.[facility]
--- OUTSIDE RECORDS SUMMARY | 2025-01-02 14:46 | XMS_ITS | Encounter Summary ---
Author Organization [facility] Address [address] [place] [address] Phone Care Team Providers Care Surgical Services Manager Name Role Phone Barbra Fitch MD Primary Care Provider [phone] Mari Juarez MD Primary Care Provider [phone] Encounter Details Date Type Department Care Team (Late st Contact Info) Description 09/01/2022 Procedure Pass [address] [place] [address] Social History Tobacco Use Types Packs/Day Years Used Date Smoking Tobacco: Former Cigarettes 0.3 24.3 0 06/23/1998 - 10/27/2022 Smokeless Tobacco: Never Comments:Smoked on and off a s a light smoker for over 20 years. Alcohol Use Standard Drinks/Week Comments Not Currently 0 (1 standard drink = 0.6 oz pure alcohol) Very occassionally drink any alocohol Sex and Gender Information Value Date Recorded Sex Assigned at Female 11/05/2020 9:06 AM EST Gender Identity Female 11/05/2020 9:06 AM EST Sexual Orientation Straight 11/05/2020 9: 06 AM EST documented as of this encounter Plan of Treatment Upcoming Encounters Date Type Department Care Team (Late Contact Info) Description 10/31/2024 Procedure Pass [address] [place] [address] 04/17/2025 12:45 PM EDT Appointment [address] [place] [address] Mari Juarez MD [address] [place] [address] documented as of this encounter Visit Diagnoses Not on filedocumented in this encounter Additional Health Concerns Assessment Noted Time PHQ-2 Depression Total Score: 1 09/28/20 20 8:20 PM EST documented as of this encounter Care Teams Surgical Services Manager Relationship Specialty Start Date End Date Barbra Fitch MD [email or web address] PCP - General Family Medicine 09/30/19 Mari Juarez MD [address] [place] [address] PCP - General Internal Medicine 11/17/22 documented as of this encounter Additional Source Comments The information contained in this document represents components of the legal health record. It is not the complete legal health record.[facility]
--- OUTSIDE RECORDS SUMMARY | 2025-01-02 14:46 | XMS_ITS | Encounter Summary ---
Author Organization [facility] Address [address] [place] [address] Phone Care Team Providers Care Petroleum Refinery Worker Name Role Phone Barbra Fitch MD Primary Care Provider [phone] Mari Juarez MD Primary Care Provider [phone] Encounter Details Date Type Department Care Team (Late st Contact Info) Description 12/24/2021 Procedure Pass [address] [place] [address] Social History Tobacco Use Types Packs/Day Years Used Date Smoking Tobacco: Light Smoker Cigarettes 0.3 22.2 Started: 997; Last attempted to quit: 09/06/2019 Smokeless Tobacco: Never Alcohol Use Standard [...] Encounters Date Type Department Care Team (Late st Contact Info) Description 10/31/2024 Procedure Pass [address] [place] [address] 04/17/2025 12:45 PM EDT Appointment [address] [place] [address] Mari Juarez MD [address] [place] [address] documented as of this encounter Visit Diagnoses Not on filedocumented in this encounter Additional Health Concerns Assessment Noted Time PHQ-2 Depression Total Score: 1 09/28/20 20 8:20 PM EST documented as of this encounter Care Teams Petroleum Refinery Worker Relationship Specialty Start Date End Date Barbra Fitch MD [email or web address] PCP - General Family Medicine 09/30/19 Mari Juarez MD [address] [place] [address] PCP - General Internal Medicine 11/17/22 documented as of this encounter Additional Source Comments The information contained in this document represents components of the legal health record. It is not the complete legal health record.[facility]
--- OUTSIDE RECORDS SUMMARY | 2025-01-02 14:46 | XMS_ITS | Encounter Summary ---
Author Organization [facility] Address [address] [place] [address] Phone Care Team Providers Care Construction Craft Laborer Name Role Phone Jack Junior MD Unavailable Aryan Arriaga MD Unavailable [phone] Dulce Maria Odom MD Unavailable [email or web address] Barbra Fitch MD Primary Care Provider Mari Juarez MD Primary Care Provider Encounter Details Date Type Department Care Team (Late st Contact Info) Description 10/01/2020 Procedure Pass [address] [place] [address] Social History Tobacco Use Types Packs/Day Years [...] st Contact Info) Description 10/31/2024 Procedure Pass [address] [place] [address] 04/17/2025 12:45 PM EDT Appointment [address] [place] [address] Mari Juarez MD [address] [place] [address] documented as of this encounter Visit Diagnoses Not on filedocumented in this encounter Additional Health Concerns Assessment Noted Time PHQ-2 Depression Total Score: 1 09/28/20 20 8:20 PM EST documented as of this encounter Care Teams Construction Craft Laborer Relationship Specialty Start Date End Date Barbra Fitch MD [email or web address] PCP - General Family Medicine 09/30/19 11/16/22 Mari Juarez MD [address] [place] [address] PCP - General Internal Medicine 11/17/22 Jack Junior MD [address] [place] [address] Historical LMR Provider 08/15/17 11/02/21 Aryan Arriaga MD [address] [place] [address] Historical LMR Provider 08/15/17 11/02/21 Dulce Maria Odom MD [email or web address] Historical LMR Provider 08/15/17 2 documented as of this encounter Additional Source Comments The information contained in this document represents components of the legal health record. It is not the complete legal health record.[facility]
--- OUTSIDE RECORDS SUMMARY | 2025-01-02 14:46 | XMS_ITS | Encounter Summary ---
Author Organization [facility] Address [facility] [employer] [address] [address] Phone Care Team Providers Care Vacuum Spindle Sander Name Role Phone Mari Juarez MD Primary Care Provider [phone] Encounter Details Date Type Department Care Team ([facility] st Contact Info) Description 11/16/2023 Procedure Pass [facility] - [address] [place] [address] Social History Tobacco Use Types Packs/Day Years Used Date Smoking Tobacco: Former Cigarettes 0.3 24.3 0 06/23/1998 - 10/27/2022 Smokeless Tobacco: Never Comments:Smoked on and off a s a light smoker for over 20 years. Alcohol Use Standard Drinks/Week Comments Not Currently 0 (1 standard drink = 0.6 oz pure alcohol) Very occassionally drink any alocohol Education Answer Date Recorded Are you interested in more education? Not on silvana e 02/20/2023 Are you concerned about learning? Not on file 02/20/2023 No 02/20/2023 No 02/20/2023 Digital Access Answer Date Recorded No 03/23/2023 No 03/23/2023 Reliable internet access at home? Not on file 03/23/2023 Device with a working camera? Not on file Sex and Gender Information Value Date Recorded Sex Assigned at Female 11/05/2020 9:06 AM EST Gender Identity Female 11/05/2020 9:06 AM EST Sexual Orientation Straight 11/05/2020 9: 06 AM EST documented as of this encounter Plan of Treatment Upcoming Encounters Date Type Department Care Team (Late st Contact Info) Description 10/31/2024 Procedure Pass [address] [place] [address] 04/17/2025 12:45 PM EDT Appointment [address] [place] [address] Mari Juarez MD [address] [place] [address] documented as of this encounter Visit Diagnoses Not on filedocumented in this encounter Additional Health Concerns Assessment Noted Time PHQ-2 Depression Total Score: 1 09/28/20 20 8:20 PM EST documented as of this encounter Care Teams Vacuum Spindle Sander Relationship Specialty Start Date End Date Mari Juarez MD [address] [place] [address] PCP - General Internal Medicine 11/17/22 documented as of this encounter Additional Source Comments The information contained in this document represents components of the legal health record. It is not the complete legal health record.[facility]
--- OUTSIDE RECORDS SUMMARY | 2025-01-02 14:46 | XMS_ITS | Encounter Summary ---
Author Organization [facility] Address [address] [facility] [address] [place] [address] Phone Care Team Providers Care Chicken Tender Name Role Phone Mari Juarez MD Primary Care Provider [phone] Encounter Details Date Type Department Care Team (Late st Contact Info) Description 10/31/2024 Transcribe Orders Virtual Department [address] [place] [address] Mari Juarez MD [facility] [place] [address] Breast screening (Primary Dx) Social History Tobacco Use Types Packs/Day Years [...] Contact Info) Description 10/31/2024 Procedure Pass [address] [place] [address] 04/17/2025 12:45 PM EDT Appointment [address] [place] [address] Mari Juarez MD [address] [place] [address] Scheduled Orders Name Type Priority Associated Diagnoses Orde r Schedule Mammogram Screening (Bilateral) Imaging Routine Breast screening Expected: 12/01/2024, Expires: 10/31/2025 documented as of this encounter Visit Diagnoses Diagnosis Breast screening- Primary Breast screening, unspecified documented in this encounter Additional Health Concerns Assessment Noted Time PHQ-2 Depression Total Score: 1 09/28/20 20 8:20 PM EST documented as of this encounter Care Teams Chicken Tender Relationship Specialty Start Date End Date Mari Juarez MD [address] [place] [address] PCP - General Internal Medicine 11/17/22 documented as of this encounter Additional Source Comments The information contained in this document represents components of the legal health record. It is not the complete legal health record.[facility]
--- OUTSIDE RECORDS SUMMARY | 2025-01-02 14:46 | XMS_ITS | Encounter Summary ---
Author Organization [facility] Address [address] [place] [address] Phone Care Team Providers Care Hot Cell Technician Name Role Phone Mari Juarez MD Primary Care Provider [phone] Encounter Details Date Type Department Care Team (Late st Contact Info) Description 11/16/2023 Transcribe Orders Virtual Department [address] [place] [address] Mari Juarez MD [facility] [place] [address] Encounter for screening mammogram for malignant neoplasm of breast (Primary Dx) Social History Tobacco Use Types [...] st Contact Info) Description 10/31/2024 Procedure Pass [address] [place] [address] 04/17/2025 12:45 PM EDT Appointment [address] [place] [address] Mari Juarez MD [address] [place] [address] documented as of this encounter Results * BI MAMMOGRAM SCREENING WITH TOMOSYNTHESIS WITH CAD (BILATERAL) (01/04/2024 3:19 PM EDT) Anatomical Region Laterality Modality Breast Left, Breast Right, Breast Bilateral Bila teral Mammography 01/06/2024 11:0 3 AM EDT Impressions 01/06/2024 11:05 AM EDT No mammographic evidence of malignancy in either breast. Annual screening mammography is recommended. BI-RADS 2 BENIGN The patient will be notified of the results and recommendations. Narrative 01/06/2024 11:05 AM EDT BI MAMMOGRAM SCREENING WITH TOMOSYNTHESIS WITH CAD (BILATERAL) Additional patient information: Screening. COMPARISON: Comparison is made with relevant prior imaging. Breast composition: The breast tissue is extremely dense which lowers the sensitivity of mammography. FINDINGS: Previous needle biopsy in the right breast, biopsy marker clip is noted in the lower inner quadrant. No abnormal masses, suspicious calcifications, or other significant findings are identified mammographically in either breast. Procedure Note Rosalinda Love MD - 01/06/2024 BI MAMMOGRAM SCREENING WITH TOMOSYNTHESIS WITH CAD (BILATERAL) Additional patient information: Screening. COMPARISON: Comparison is made with relevant prior imaging. Breast composition: The breast tissue is extremely dense which lowers thesensitivity of mammography. FINDINGS: Previous needle biopsy in the right breast, biopsy marker clip is noted inthe lower inner quadrant. No abnormal masses, suspicious calcifications, or other significantfindings are identified mammographically in either breast. IMPRESSION: No mammographic evidence of malignancy in either breast. Annual screening mammography is recommended. BI-RADS 2 BENIGN The patient will be notified of the results and recommendations. Mari Juarez MD IMG MG EXAMS documented in this encounter Visit Diagnoses Diagnosis Encounter for screening mammogram for malignant neoplasm of breast- Primary Encounter for screening mammogram for malignant neoplasm of breast documented in this encounter Additional Health Concerns Assessment Noted Time PHQ-2 Depression Total Score: 1 09/28/20 20 8:20 PM EST documented as of this encounter Care Teams Hot Cell Technician Relationship Specialty Start Date End Date Mari Juarez MD [address] [place] [address] PCP - General Internal Medicine 11/17/22 documented as of this encounter Additional Source Comments The information contained in this document represents components of the legal health record. It is not the complete legal health record.[facility]
--- OUTSIDE RECORDS SUMMARY | 2025-01-02 14:46 | XMS_ITS | Encounter Summary ---
Author Organization [facility] Address [address] [place] [address] Phone Care Team Providers Care Library Customer Service Clerk Name Role Phone Jack Junior MD Unavailable Aryan Arriaga MD Unavailable [phone] Dulce Maria Odom MD Unavailable [email or web address] Barbra Fitch MD Primary Care Provider Mari Juarez MD Primary Care Provider Encounter Details Date Type Department Care Team (Late st Contact Info) Description 08/26/2021 Procedure Pass [address] [place] [address] Social History Tobacco Use Types Packs/Day Years [...] st Contact Info) Description 10/31/2024 Procedure Pass [address] [place] [address] 04/17/2025 12:45 PM EDT Appointment [facility] - [address] [place] [address] Mari Juarez MD [address] [place] [address] documented as of this encounter Visit Diagnoses Not on filedocumented in this encounter Additional Health Concerns Assessment Noted Time PHQ-2 Depression Total Score: 1 09/28/20 20 8:20 PM EST documented as of this encounter Care Teams Library Customer Service Clerk Relationship Specialty Start Date End Date Barbra Fitch MD [email or web address] PCP - General Family Medicine 09/30/19 11/16/22 Mari Juarez MD [address] [place] [address] PCP - General Internal Medicine 11/17/22 Jack Junior MD [address] [place] [address] Historical LMR Provider 08/15/17 11/02/21 Aryan Arriaga MD [address] [place] [address] Historical LMR Provider 08/15/17 11/02/21 Dulce Maria Odom MD [email or web address] Historical LMR Provider 08/15/17 2 documented as of this encounter Additional Source Comments The information contained in this document represents components of the legal health record. It is not the complete legal health record.[facility]
--- OUTSIDE RECORDS SUMMARY | 2025-01-02 14:47 | XMS_ITS | Encounter Summary ---
Author Organization [facility] Address [address] [place] [address] Phone Care Team Providers Care Client Onboarding Analyst Name Role Phone Jack Junior MD Unavailable Aryan Arriaga MD Unavailable [phone] Dulce Maria Odom MD Unavailable [email or web address] Barbra Fitch MD Primary Care Provider [phone] Barbra Fitch MD Primary Care Provider [phone] Mari Juarez MD Primary Care Provider [phone] Encounter Details Date Type Department Care Team (Late Contact Info) Description 08/11/2019 Ancillary Orders [facility],Outside Imaging [address] [place], [place] [id number] System, Provider Not In, [place] [address] Social History Tobacco Use Types Packs/Day Years Used Date Smoking Tobacco: Every Day Cigarettes 0.3 27.5 Started: 06/23/1997 Smokeless Tobacco: Never Alcohol Use Standard Drinks/Week Comments Yes 2 (1 standard drink = 0.6 oz pur [...] st Contact Info) Description 10/31/2024 Procedure Pass [address] [place] [address] 04/17/2025 12:45 PM EDT Appointment [address] [place] [address] Mari Juarez MD [address] [place] [address] documented as of this encounter Results * Mammogram Outside (No Interpretation) (01/19/2018 12:05 AM EDT) Narrative SYSTEMGENERATED, DOCUMENTATION - 08/11/2019 5:07 PM EDT This study is for PACS storage only and not for interpretation. Provider Not In System PhD IMG OUTSIDE I MAGING W/OUT INTERPRETATION * US Breast Outside (No Interpretation) (01/19/2018 12:00 AM EDT) Narrative SYSTEMGENERATED, DOCUMENTATION - 08/11/2019 5:06 PM EDT This study is for PACS storage only and not for interpretation. Provider Not In System PhD IMG OUTSIDE I MAGING W/OUT INTERPRETATION * US Breast Outside (No Interpretation) (01/05/2018 12:05 AM EDT) Narrative SYSTEMGENERATED, DOCUMENTATION - 08/11/2019 5:06 PM EDT This study is for PACS storage only and not for interpretation. Provider Not In System PhD IMG OUTSIDE I MAGING W/OUT INTERPRETATION * Mammogram Outside (No Interpretation) (01/05/2018 12:00 AM EDT) Narrative SYSTEMGENERATED, DOCUMENTATION - 08/11/2019 5:05 PM EDT This study is for PACS storage only and not for interpretation. Provider Not In System PhD IMG OUTSIDE I MAGING W/OUT INTERPRETATION documented in this encounter Visit Diagnoses Not on filedocumented in this encounter Additional Health Concerns Assessment Noted Time PHQ-2 Depression Total Score: 0 06/23/20 19 3:05 PM EDT documented as of this encounter Care Teams Client Onboarding Analyst Relationship Specialty Start Date End Date Barbra Fitch MD [email or web address] PCP - General Family Medicine 04/27/18 09/29/19 Barbra Fitch MD [email or web address] PCP - General Family Medicine 09/30/19 11/16/22 Mari Juarez MD [address] [place] [address] PCP - General Internal Medicine 11/17/22 Jack Junior MD [address] [place] [address] [email or web address] Historical LMR Provider 08/15/17 11/02/21 Aryan Arriaga MD [address] [place] [address] [email or web address] Historical LMR Provider 08/15/17 11/02/21 Dulce Maria Odom MD [email or web address] Historical LMR Provider 08/15/17 2 documented as of this encounter Additional Source Comments The information contained in this document represents components of the legal health record. It is not the complete legal health record.[facility]
--- OUTSIDE RECORDS SUMMARY | 2025-01-02 14:47 | XMS_ITS | Clinical Summary ---
Author Organization [facility] Address [address] [place] [address] Phone Care Team Providers Care Apparel Merchandiser Name Role Phone Mari Juarez MD Primary Care Provider [phone] Allergies Active Allergy Reactions Criticality Noted Date Comments Sulfamethoxazole-Trimethoprim Nausea and/or Vomiting 02/24/2018 Venom-Honey Bee Swelling 06/23/2019 Lorazepam Nausea and/or Vomiting 04/03/2017 Shellfish Unknown 04/03/2017 Medications Medication Sig Dispensed Refills Start Date End Date Status B-complex with vitamin C (VITAMIN B COMPLEX WITH C) Cap orally Active Medication-Free Text multivitamin Active cholecalciferol, vitamin D3, (VITAMIN D3) 400 unit capsule Take 2 capsules by mouth daily. Active EPINEPHrine 0.3 mg/0.3 mL auto-injector Inject 0.3 mL (0.3 mg total) into the muscle as needed for anaphylaxis. 1 Device 1 06/23/2019 Active acetaminophen (TYLENOL) 325 mg tablet Take 2 tablets (650 mg total) by mouth every 4 (four) hours as needed for mild pain. 0 09/12/2019 Active Active Problems Problem Noted Date Diagnosed Date Immunization due 08/11/2019 Assessment & Plan (08/11/2019 9:51 AM EDT): Funmilayo was given her firt HPV vaccine today. She will come back in - in 1-2 months for the second and then the third after. She was appreciative of this today. Calcific tendonitis of right shoulder 06/17/2018 History of Lyme disease 06/17/2018 Overview (06/17/2018): 2012 Low vitamin D level 06/17/2018 Family history of breast cancer 06/17/2018 Overview (06/17/2018): Genetic testing negative- [facility] Mother diagnosis 29 Resolved Problems Problem Noted Date Diagnosed Date Resolved Date Umbilical hernia without obs truction and without gangrene 08/11/2019 09/26/2019 Assessment & Plan (08/18/2019 10:16 AM EDT): On exam the patient I can appreciate an umbilical hernia as well as two small epigastric hernias. I explained to her that the best way to repair these would be laparoscopically with mesh implantation. She understands that due to her thinness, she will likely be able to feel the mesh. The risks and benefits of laparoscopic hernia repair including but not limited to the risks of infection, bleeding, chronic pain, infection of the mesh, need for an open operation, damage to organs and heart/lung risks of anesthesia have been explained to the patient. The patient understands those risks and wishes to proceed. She does not want to take the chance of these hernias getting larger. The patient also understands that this repair is not a cosmetic procedure and that they could be left with a lump, bulge, and/or skin changes at the repair site. The patient understands the signs and symptoms of hernia strangulation and will seek immediate medical attention should a pinching feeling or severe pain in the area of the hernia, fever, chills, nausea, and/or vomiting develop. Assessment & Plan (08/11/2019 9:51 AM EDT): Funmilayo presents with a reducible umbilical hernia and a small ventral hernia appreciated on exam. I referred her to [facility] for a consult. She was given guidance. She will call if there is any other issues. She understands and agrees. Encounters Date Type Department Care Team Description 10/31/2024 Transcribe Orders [facility] Department [address] [place] [address] Mari Juarez MD Breast screening (Primary Dx) from Last 3 Months Immunizations Name Administration Dates Next Due HPV9 04/02/2020,09/30/2019,08/11/2019 Tdap 12/23/2016,09/28/2007 Family History Medical History Relation Comments Leukemia Brother cured Breast cancer Maternal Grandmother Cancer Maternal Grandmother Breast cancer Mother Cancer Mother Breast cancer Paternal Aunt late 50's Cancer Paternal Aunt Parkinson's disease Paternal Grandfather age 72 Leukemia Paternal Grandmother 75 Cancer Sibling Leukemia Sibling Relation Status Comments Brother Maternal Grandmother Mother Alive Paternal Aunt Paternal Grandfather Paternal Grandmother Sibling Social History Tobacco Use Types Packs/Day Years [...] Orientation Straight 11/05/2020 9: 06 AM EST Last Filed Vital Signs Vital Sign Reading Time Taken Comments Blood Pressure 104/62 10/01/2020 11:24 AM EST Pulse 77 10/01/2020 11:24 AM EST Temperature 36.6 ??C (97.9 ??F) 10/01/2020 11:[address] Respiratory Rate 14 09/12/2019 10:45 AM EST Oxygen Saturation 99% 10/01/2020 11:24 AM EST Inhaled Oxygen Concentration - - Weight 54.9 kg (121 lb) 10/01/2020 11:24 AM EST Height 162.6 cm (5' 4 ) 09/08/2019 10:39 AM EST Body Mass Index 20.77 09/08/2019 10:39 AM EST Plan of Treatment Upcoming Encounters Date Type Department Care Team (Late st Contact Info) Description 10/31/2024 Procedure Pass [address] [place] [address] 04/17/2025 12:45 PM EDT Appointment [address] [place] [address] Mari Juarez MD [place] [place] [address] Health Maintenance Due Date Last Done Comments HEPATITIS C SCREENING 2003 HIV ONE-TIME SCREENING (18-65 YEARS) 2003 PAP SMEAR 02/24/2021 02/24/2018, 11/2017, 12/17/2015 DEPRESSION SCREENING 09/28/2021 09/28/2020 INFLUENZA VACCINE (#1) 2024 COVID-19 VACCINE ( season) 2024 02/01/2021 MAMMOGRAM 01/03/2025 01/04/2024, 10/27, 11/11/2021, Additional history exists SMOKING Hx and SMOKELESS TOBACCO SCREENING 01/03/2025 01/04/2024 Adult Td,Tdap Booster 12/23/2026 12/23/2016, 007 HEPATITIS A VACCINES Aged Out No long er eligible based on patient's age to complete this topic HIB VACCINES Aged Out No longer eligi ble based on patient's age to complete this topic MENINGOCOCCAL VACCINES (ACWY) Aged Out No longer eligible based on patient's age to complete this topic PNEUMOCOCCAL VACCINES (0-49 years) Aged Out No longer eligible based on patient's age to complete this topic Medical Devices Implanted Type Area Game Advisor Device Identifier Shelf Expiration Date Model / Serial / Lot Mesh Graft 4.5in Ventralight St Polypropylene Hernia Monofil Hydrogel Echo Ps Positioning System Repair Kirby - [id number] Implanted:Qty: 1 on 09/12/2019 by Ruth Mcgovern MD at [facility] Abdomen DAVOL 07/23/2021 [id number] / / [id number] Device Fixation 37mm Optifix Pdlla Smooth Head Hollow Core Angled Tip Absorbable 30 Fastner Bx/5ea - [id number] Implanted:Qty: 1 on 09/12/2019 by Ruth Mcgovern MD at [facility] Abdomen DAVOL 10/22/2020 [id number] / / [id number] Procedures Procedure Name Priority Date/Time Associated Diagnosis Comments BI MAMMOGRAM SCREENING WITH TOMOSYNTHESIS WITH CAD (BILATERAL) Routine 01/04/2024 3:19 PM EDT Encounter for screening mammogram for malignant neoplasm of breast PAP TEST Routine 02/24/2018 12:00 AM EDT from Last 3 Months or Most Recently Relevant to Health Maintenance Results * BI MAMMOGRAM SCREENING WITH TOMOSYNTHESIS [...] recommendations. Mari Juarez MD IMG MG EXAMS * Pap Smear (02/24/2018 12:00 AM EDT) 02/24/2018 02/25/2018 2:1 9 PM EDT Narrative SEE NARRATIVE - 03/02/2018 10:32 [place] [address] Safety Deposit Supervisor: Yasmeen Wang MD ?? FABRICATOR [employer] Cytology Report FINAL DIAGNOSIS A. ??PAP SMEAR (SUREPATH) C: SPECIMEN ADEQUACY: Satisfactory for evaluation; transformation zone present. INTERPRETATION: NEGATIVE FOR INTRAEPITHELIAL LESION OR MALIGNANCY. Electronically Signed Out By: ??SHAYLEE Lerner(ASCP) The Pap test is a screening test primarily for squamous cancers and precursors and has associated false-negative and false-positive results. ??New technologies such as liquid-based preparations may decrease but will not eliminate all false-negative results. ??Regular sampling and follow-up of unexplained clinical signs and symptoms are recommended to minimize false negative results. PROCEDURES/ADDENDA HPV Testing (Requested) Ordered Date: 02/25/2018 ? HPV Test Negative for high risk human papillomavirus types 16, 18 and the Other high risk probe set (Includes 31, 33, 35, 39, 45, 51, 52, 56, 58, 59, 66, 68) by Ever cobase 4800 HR-HPV analysis. Clinical correlation is advised. This HPV test was performed at [facility], [address] [place] [address]. The accuracy and precision of this test has been verified in the Cytopathology laboratory of the [facility]. This test has not been cleared or approved by the U.S. Food and Drug Administration (FDA). ? CLINICAL HISTORY Date of Last Menstrual Period: ??N/A Treatment History: ??Other: Had endometrial ablation. Other Clinical Conditions: ??Screening Pap SPECIMEN SOURCE A: PAP SMEAR (SUREPATH) C Patient Name: ??FUNMILAYO HERNANDEZ : ??1985 (Age: 32) Sex: ??F Institution: ??[facility] Location: ??[facility] Date of Collection: ??02/24/2018 Date of Reported: ??03/02/2018 10:32 Results to: Aryan Arriaga MD, BS Aryan Arriaga MD CYTOLOGY ORDERABLES SEE NARRATIVE from Last 3 Months or Most Recently Relevant to Health Maintenance Advance Directives For more information, please contact: [phone] (9AM - 5PM [facility], Thursday-Thursday) Documents on File Type Date Recorded Patient Extrusion Bender Expl anation Healthcare Proxy 09/13/2019 10:57 AM HEAL TH CARE PROXY * Full Code (Presumed) (Latest Code Status on File) Date Activated Date Inactivated Comments 09/12/2019 7:59 AM 09/12/2019 2:23 PM Care Teams Apparel Merchandiser Relationship Specialty Start Date End Date Mari Juarez MD [address] [place] [address] PCP - General Internal Medicine 11/17/22 Additional Source Comments The information contained in this document represents components of the legal health record. It is not the complete legal health record.[facility]
--- OUTSIDE RECORDS SUMMARY | 2025-01-02 14:47 | XMS_ITS | Encounter Summary ---
Author Organization [facility] Address [address] [place] [address] Phone Care Team Providers Care Gypsum Calciner Name Role Phone Jack Junior MD Unavailable Aryan Arriaga MD Unavailable [phone] Dulce Maria Odom MD Unavailable [email or web address] Claire Dorsey MD Primary Care Provider [phone] Dayanara Cruz NP Primary Care Provider Barbra Fitch MD Primary Care Provider Barbra Fitch MD Primary Care Provider Mari Juarez MD Primary Care Provider Encounter Details Date Type Department Care Team (Late st Contact Info) Description 12/30/2017 Transcribe Orders [address] [place] [address] Claire Dorsey MD [address] [place] [address] Anemia, unspecified type (Primary Dx); Fatigue, unspecified type; Avitaminosis D; Routine general medical examination at a health care facility Social History Tobacco Use Types Packs/Day Years Used Date Smoking Tobacco: Never Assessed Sex and Gender Information Value Date Recorded Sex Assigned at Female 11/05/2020 9:06 AM EST Gender Identity Female 11/05/2020 9:06 AM EST Sexual Orientation Straight 11/05/2020 9: 06 AM EST documented as of this encounter Plan of Treatment Upcoming Encounters Date Type Department Care Team (Late st Contact Info) Description 10/31/2024 Procedure Pass [address] [place] [address] 04/17/2025 12:45 PM EDT Appointment [address] [place] [address] Mari Juarez MD [address] [place] [address] documented as of this encounter Results * (ABNORMAL) Lipid panel (12/30/2017 10:06 AM EST) HDL 72 mg/dL [facility] Comment: Interpretation: Risk Level ? Females Decreased ?>55mg/dL Average ?50-55 mg/dL Increased ?<50 mg/dL CHOLESTEROL 191 0 - 240 mg/dL [facility] TRIGLYCERIDES 61 30 - 160 mg/dL [facility] LDL 107 50 - 129 mg/dL [facility] Comment: LDL levels in terms of risk for coronary heart disease: <100 mg/dL: Optimal 100-129 mg/dL: Near or above optimal 130-159 mg/dL: Borderline high 160-189 mg/dL: High >190 mg/dL: Very High CARDIAC RISK RATIO 2.7(L) 3.3 - 4.4 C [facility] Blood 12/30/2017 10:0 6 AM EST 12/30/2017 10:08 AM EST Claire Dorsey MD LAB BLOOD ORDERABLES [facility] [address] [place] [address] * (ABNORMAL) Folate (12/30/2017 10:06 AM EST) FOLIC ACID >20.0(H) 4.2 - 19.9 ng/mL [facility] Blood 12/30/2017 10:0 6 AM EST 12/30/2017 10:08 AM EST Claire Dorsey MD LAB BLOOD ORDERABLES Performing Organization Address City/[facility]/ZIP Co de Phone Number [address] [address] * Vitamin B12 (12/30/2017 10:06 AM EST) VITAMIN B12 582 243 - 894 pg/mL [facility] Blood 12/30/2017 10:0 6 AM EST 12/30/2017 10:08 AM EST Claire Dorsey MD LAB BLOOD ORDERABLES Performing Organization Address [facility]/ZIP Co de Phone Number [address] [address] * (ABNORMAL) 25-[place] vitamin D (12/30/2017 10:06 AM EST) 25 [place] VIT D (TOTAL) 20(L) 30 - 1,000 ng/mL [facility] Blood 12/30/2017 10:0 6 AM EST 12/30/2017 10:08 AM EST Claire Dorsey MD LAB BLOOD ORDERABLES Performing Organization Address City/[facility]/ZIP Co de Phone Number [address] [address] * TSH with reflex (12/30/2017 10:06 AM EST) TSH 1.75 0.27 - 4.20 uIU/mL [facility] Blood 12/30/2017 10:0 6 AM EST 12/30/2017 10:08 AM EST Claire Dorsey MD LAB BLOOD ORDERABLES Performing Organization Address City/[facility]/ZIP Co de Phone Number [address] [address] * (ABNORMAL) Comprehensive metabolic panel (12/30/2017 10:06 AM EST) SODIUM 137 133 - 146 mmol/L [facility] POTASSIUM 3.9 3.3 - 5.1 mmol/L [facility] CHLORIDE 100 96 - 108 mmol/L [facility] CO2 25 21 - 35 mmol/L [facility] BUN 17 6 - 19 mg/dL [facility] CREATININE 0.70 0.5 - 1.5 mg/dL [facility] GLUCOSE 96 70 - 99 mg/dL [facility] ALBUMIN 4.7 3.9 - 4.8 g/dL [facility] TOTAL PROTEIN 7.7 6.5 - 8.0 g/dL [facility] CALCIUM 9.5 8.4 - 10.3 mg/dL [facility] ALKALINE PHOSPHATASE 30(L) 39 - 117 U/L [facility] TOTAL BILIRUBIN 0.5 0.0 - 1.2 mg/dL [facility] AST 14 0 - 37 U/L [facility] ALT 13 0 - 40 U/L [facility] GLOBULIN 3.0 1 - 4.8 g/dL [facility] EGFR 115 >59 mL/min/1.7 3m2 [facility] Comment:If patient is black, multiply result by 1.159. The eGFR calculation has changed from the MDRD equation to the CKD-EPI equation as of December 29, 2017. ANION GAP 16 10 - 20 mmol/L [facility] Blood 12/30/2017 10:0 6 AM EST 12/30/2017 10:08 AM EST Claire Dorsey MD LAB BLOOD ORDERABLES [facility] [address] [place] [address] * CBC (12/30/2017 10:06 AM EST) WBC 5.76 3.40 - 11.20 K/uL [facility] RBC 4.17 3.80 - 4.80 M/uL [facility] HGB 12.9 12.0 - 15.0 g/dL [facility] HCT 38.6 36.0 - 46.0 % [facility] PLT 214 130 - 400 K/uL [facility] MCV 92.6 79.0 - 98.0 fL [facility] MCH 30.9 27.0 - 34.8 pg [facility] MCHC 33.4 31.5 - 36.0 g/dL [facility] RDW 12.5 10.8 - 14.6 % [facility] MPV 10.3 9.4 - 12.4 fl [facility] NRBC 0.00 /100 WBCs [facility] ABSOLUTE NRBC 0.00 K/uL [facility] Blood 12/30/2017 10:0 6 AM EST 12/30/2017 10:08 AM EST Claire Dorsey MD LAB BLOOD ORDERABLES Performing Organization Address City/State/[facility] Co de Phone Number [address] [address] documented in this encounter Visit Diagnoses Diagnosis Anemia, unspecified type- Primary Fatigue, unspecified type Avitaminosis D Unspecified vitamin D deficiency Routine general medical examination at a health care facility documented in this encounter Care Teams Gypsum Calciner Relationship Specialty Start Date End Date Claire Dorsey MD [address] [place] [address] [email or web address] PCP - General Internal Medicine 12/30/17 04/07/18 Dayanara Cruz NP [address] [place] [address] [email or web address] PCP - General Family Medicine 04/08/18 04/26/18 Barbra Fitch MD [address] [place] [address] [email or web address] PCP - General Family Medicine 04/27/18 09/29/19 Barbra Fitch MD [address] [place] [address], [place] [address] [email or web address] PCP - General Family Medicine 09/30/19 11/16/22 Mari Juarez MD [address] [place] [address] PCP - General Internal Medicine 11/17/22 Jack Junior MD [address] [place] [address] [email or web address] Historical LMR Provider 08/15/17 11/02/21 Aryan Arriaga MD [address] [address] Historical LMR Provider 08/15/17 11/02/21 Dulce Maria Odom MD [email or web address] Historical LMR Provider 08/15/17 2 documented as of this encounter Additional Source Comments The information contained in this document represents components of the legal health record. It is not the complete legal health record.[facility]
== END 2025-01-02 14:58 | disposition home or self-care (01) ==
PROVIDERS: PCP Internal Medicine; Visit Provider Internal Medicine
DX: Z00.00 Encounter for general adult medical examination without abnormal findings (principal)

== ENCOUNTER → 2025-01-02 13:06 | Outpatient (BNVA) | payer OTHER, SELFPAY | PROVIDERS: PCP Internal Medicine; Visit Provider Internal Medicine | DX: Z00.00 Encounter for general adult medical examination without abnormal findings (principal) | CPT/HCPCS: 96127; 99395 ==

== ENCOUNTER → 2025-01-16 09:01 | Outpatient (BNV) | payer OTHER, SELFPAY | PROVIDERS: PCP Internal Medicine; Visit Provider Internal Medicine | DX: R92.8 Other abnormal and inconclusive findings on diagnostic imaging of breast (principal) | CPT/HCPCS: 77049 ==

== ENCOUNTER 2025-01-16 09:07 | Outpatient (REF) | payer OTHER, SELFPAY ==
--- NOTE | ~2025-01-16 | MR_ITS ---
EXAMINATION: MR BREAST WITHOUT AND WITH CONTRAST, BILATERAL CLINICAL INFORMATION: High risk screening. Family history of breast cancer. Extremely dense tissue on mammography. History of benign right MRI guided core needle biopsy 05/2023. COMPARISON: None available. TECHNIQUE: MR imaging of the breast was performed using T1, T2 and fat saturated techniques. Dynamic multiphase imaging was also performed after administration of intravenous gadolinium contrast agent. Computer generated 3-D reconstruction was performed. FINDINGS: The patient's fibroglandular tissue demonstrates moderate background enhancement. LEFT BREAST: There is a new 7 x 6 x 7 mm(anterior to posterior by transverse by superior to inferior) oval enhancing mass upper central slightly inner breast 2 to 3 cm from the nipple series 1045, 1041 image 61/110. No other suspicious enhancing masses areas of nonmass enhancement or architectural distortion. No internal mammary or axillary adenopathy. RIGHT BREAST: Line no suspicious enhancing masses or areas of nonmass enhancement. No architectural distortion. No internal mammary or axillary adenopathy. Limited views of the chest and abdomen are unremarkable. MR/MR breast BI wo/w con IMPRESSION: Right: Benign. Left: New enhancing oval mass measuring up to 7 mm in the upper central /inner left breast. Recommend ultrasound evaluation for a correlate. If no correlate is seen then MRI guided core needle biopsy is recommended at this time for confirmation. ASSESSMENT: LEFT BREAST: BI-RADS 4 suspicious. Recommend ultrasound evaluation at this time if no ultrasound correlate is seen then MRI guided core needle biopsy is recommended. RIGHT BREAST: BI-RADS 2 benign. RECOMMENDATIONS: Recommend left breast ultrasound. If no ultrasound correlate is seen then MRI guided core needle biopsy is recommended. Electronically signed by: Zoie Morales DO 01/17/2025 04:13 PM EDT
[2025-01-16] MEDS: gadobutroL 7.5 ML VIAL IVPUSH (09:58)
== END 2025-01-16 09:08 | disposition home or self-care (01) ==
LOC: HO.MRI 09:07
PROVIDERS: PCP Internal Medicine; Visit Provider Surgery
DX: R92.8 Other abnormal and inconclusive findings on diagnostic imaging of breast (principal); Z91.89 Other specified personal risk factors, not elsewhere classified; Z80.3 Family history of malignant neoplasm of breast
CPT/HCPCS: 77049; A9585

== ENCOUNTER 2025-01-20 08:57 | Outpatient (AMB) | payer OTHER, SELFPAY ==
--- NOTE | 2025-01-20 08:58 | A.OFFVIS_ITS ---
Vital Signs 01/20/25 09:03 Height 5 ft 4 in Weight 126 lb BMI 21.6 BP 119/71 Blood Pressure Location Rt brachial Position Sitting Pulse 81 Intake Visit Reasons: Breast exam, 6 mo follow up Intake Note: Patient is seen in office for 6 month follow up visit, breast exam. Pt c/o: no concerns. Denies breast rash, pain, nipple discharge. Reports no changes in medical hx. MRI: 01/16/25 Inspector Scales Required: No Accompanied by: Self / Same As Patient Allergies lorazepam [From Ativan] Adverse Reaction (Mild, Verified 01/20/25 09:02) Vomiting sulfamethoxazole [From Bactrim] Adverse Reaction (Unknown, Verified 01/20/25 09:02) vomitting trimethoprim [From Bactrim] Adverse Reaction (Unknown, Verified 01/20/25 09:02) vomitting Medication List - Last Reconciled 01/20/25 by Miguel Seo MD ascorbic acid (vitamin C) mg PO cholecalciferol (vitamin D3) 25 mcg PO DAILY multivitamin 1 tab PO DAILY HPI Comments Details: 39-year-old female patient returning for high risk breast examination. She has a strong family history of breast cancer including her mother who developed breast cancer at the age of 28 and her maternal grandmother who developed breast cancer at the age of 74. She also has a paternal aunt who developed breast cancer at the age of 67. The patient has a previous history of an abnormal breast MRI which required an MR guided biopsy performed last year at [facility] in [place] pathology revealed a nodular area of adenosis, microcysts, dilated ducts, and ductal hyperplasia with no atypia. Fibroadenoma it was change and a background of ductal hyperplasia without atypia was also identified. She underwent genetic testing on 05/15/2023 which revealed no clinically significant mutations. 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 Her breast cancer risk score was calculated at 31.6%. She again had a suspicious finding by MRI in the right breast underwent MR guided biopsy at [facility] on 06/06/2024. Subsequent pathology revealed benign breast tissue with adenosis and dense stromal fibrosis. Six-month follow-up MRI was recommended and obtained on 01/16/2025 at [facility]. This revealed a new 7 x 6 x 7 mm oval enhancing mass in the upper central slightly inner breast 2-3 cm from the nipple felt to be suspicious and targeted ultrasound was recommended. If no correlate noted by ultrasound, MRI guided biopsy is recommended. I reviewed the MRI findings with her today. PENDING SALE TO [facility] Medical History FH: breast cancer Left breast mass Dysmenorrhea Normal Pap smear Calcific tendinitis Surgical History History of endometrial ablation (2016) H/O hernia repair Family History Mother Breast cancer, Onset Age: 28 Father Asthma Substance use disorder Maternal Grandmother Breast cancer, Onset Age: 74 Paternal Aunt Breast cancer, Onset Age: 60 Paternal Uncle Substance use disorder Paternal Grandfather Substance use disorder Social History Household Members Other:: lives with partner, trying to quit smoking, cleans exercise, 2 boys (18,13) Housing: Apartment Alcohol intake: never Patient Tobacco Use Status: Former Tobacco user Tobacco use type: Cigarette Cigarettes Per Day: 5 Years Smoked: 23 e-Cigarette/Vaping Use: Never Used service: No Current occupational status: employed Cognitive needs: No Hearing needs: No Vision needs: No Female Reproductive History Menstrual Age of Menarche: 13 Review of Systems Const All systems reviewed & are unremarkable except as noted in HPI and below Physical Exam Vital Signs: Last Vital Signs Pulse 81 01/20/25 09:03 BP 119/71 01/20/25 09:03 BMI result Body Mass Index 21.6 Const General: comfortable Nutritional Appearance: well nourished Chest Other: Left breast: No skin change, no nipple retraction, no nipple discharge, no palpable mass, no enlarged lymph nodes. Right breast: No skin change, no nipple retraction, no nipple discharge, no palpable mass, no enlarged lymph nodes Resp Effort & Inspection: normal respiratory effort, no audible wheezes, no cough and no respiratory distress Skin Other: Warm, dry, no rash Extrem Other: No edema Assessment & Plan Assessment & Plan (1) Abnormal magnetic resonance imaging of right breast: Code(s): R92.8 - Other abnormal and inconclusive findings on diagnostic imaging of breast Category: Medical (2) At high risk for breast cancer: Code(s): Z91.89 - Other specified personal risk factors, not elsewhere classified Category: Medical (3) FH: breast cancer: Code(s): Z80.3 - Family history of malignant neoplasm of breast Category: Medical Plan 39-year-old female patient presenting with a strong family history of breast cancer returning for a high risk breast exam. She denies any new breast symptoms and generally feels well. Recent breast MRI performed on 01/16/2025 revealed a new oval enhancing lesion in the left breast felt to be suspicious and ultrasound is recommended of the left breast. If no correlate is identified by ultrasound, MR guided biopsy is recommended. Examination today reveals no suspicious findings in either breast including the left breast. I will inform her of the ultrasound findings as they become available. She should return for six-month follow-up examination in 6 months sooner PRN. Orders: Orders US breast LT limited Today R92.8 - Other abnormal and inconclusive findings on diagnostic imaging of breast, Z91.89 - Other specified personal risk factors, not elsewhere classified Coding Level of Care Code Est Pt Level 3 (51548) Diagnoses Abnormal magnetic resonance imaging of right breast R92.8 At high risk for breast cancer Z91.89 FH: breast cancer Z80.3
[2025-01-20 09:03] VITALS: BP 119/71; PULSE 81; BMI 21.6
== END 2025-01-20 09:13 | disposition home or self-care (01) ==
LOC: HO.HGS 08:57
PROVIDERS: PCP Internal Medicine; Visit Provider Surgery
DX: R92.8 Other abnormal and inconclusive findings on diagnostic imaging of breast (principal); Z91.89 Other specified personal risk factors, not elsewhere classified; Z80.3 Family history of malignant neoplasm of breast
CPT/HCPCS: 99213

== ENCOUNTER → 2025-01-20 08:57 | Outpatient (BNVA) | payer OTHER, SELFPAY | PROVIDERS: PCP Internal Medicine; Visit Provider Surgery | DX: R92.8 Other abnormal and inconclusive findings on diagnostic imaging of breast (principal); Z91.89 Other specified personal risk factors, not elsewhere classified; Z80.3 Family history of malignant neoplasm of breast | CPT/HCPCS: 99212 ==

== ENCOUNTER → 2025-02-21 08:30 | Outpatient (BNV) | payer OTHER, SELFPAY | PROVIDERS: PCP Internal Medicine; Visit Provider Internal Medicine | DX: N63.20 Unspecified lump in the left breast, unspecified quadrant (principal) | CPT/HCPCS: 76642 ==

== ENCOUNTER 2025-02-21 08:31 | Outpatient (REF) | payer OTHER, SELFPAY ==
--- NOTE | ~2025-02-21 | US_ITS ---
EXAMINATION: US DIAGNOSTIC ULTRASOUND BREAST, LEFT CLINICAL INFORMATION: Second Look MRI directed ultrasound in the superior slightly inner left breast for new enhancing mass on prior MRI.. COMPARISON: Comparison is made with relevant prior imaging. TECHNIQUE: Ultrasound of the breast is performed with real-time pollock scale imaging and color Doppler. FINDINGS: Targeted color Doppler ultrasound scanning in the superior left breast from 9-3 o'clock demonstrates normal fibroglandular breast tissue. There is no sonographic abnormality or correlate for the enhancing oval mass seen on prior MRI. There is no suspicious sonographic finding. Results are discussed with the patient at time of visit. US/US breast LT limited IMPRESSION: No sonographic finding to correlate with the suspicious enhancing new mass on prior MRI in the superior left breast. Recommend MRI guided core needle biopsy at this time. ASSESSMENT: BI-RADS 4: Suspicious RECOMMENDATION: Biopsy recommended. This patient's information was entered into a reminder system with a target due date for their next mammogram. Electronically signed by: Zoie Morales DO 02/21/2025 09:25 AM EDT
--- OUTSIDE RECORDS SUMMARY | 2025-02-21 08:51 | XMS_ITS | Encounter Summary ---
Author Organization [facility] Address [address] [facility] [address] [place] [address] Phone Care Team Providers Care Suction Dredge Dumping Supervisor Name Role Phone Mari Juarez MD Primary Care Provider Encounter Details Date Type Department Care Team (Late st Contact Info) Description 11/16/2023 Transcribe Orders Virtual Department [address] [place] [address] Mari Juarez MD [place] [address] Encounter for screening mammogram for malignant neoplasm [...] st Contact Info) Description 10/31/2024 Procedure Pass [address] [place] [address] 04/17/2025 12:45 PM EDT Appointment [address] [place] [address] Mari Juarez MD [address] [place] [address] documented as of this encounter Results * [...] documented as of this encounter Care Teams Suction Dredge Dumping Supervisor Relationship Specialty Start Date End Date Mari Juarez MD [address] [place] [address] PCP - General Internal Medicine 11/17/22 documented as of this encounter Additional Source Comments The information contained in this document represents components of the legal health record. It is not the complete legal health record.[facility]
--- OUTSIDE RECORDS SUMMARY | 2025-02-21 08:51 | XMS_ITS | Encounter Summary ---
Author Organization [facility] Address [address] [place] [address] Phone Care Team Providers Care Benchroom Shop Optician Name Role Phone Jack Junior MD Unavailable Aryan Arriaga MD Unavailable [phone] Dulce Maria Odom MD Unavailable [email or web address] Barbra Fitch MD Primary Care Provider [phone] Barbra Fitch MD Primary Care Provider [phone] Mari Juarez MD Primary Care Provider [phone] Encounter Details Date Type Department Care Team (Late Contact Info) Description 08/11/2019 Ancillary Orders [facility]Outside Imaging [address] [place], [place] [id number] System, Provider Not In, [facility] [address] [address] Social History Tobacco Use Types Packs/Day Years Used Date Smoking Tobacco: Every Day Cigarettes 0.3 27.7 Started: 06/23/1997 Smokeless Tobacco: Never Alcohol Use [...] st Contact Info) Description 10/31/2024 Procedure Pass [address] [place] [address] 04/17/2025 12:45 PM EDT Appointment [address] [place] [address] Mari Juarez MD [address] [place] [address] documented as of this encounter Results * [...] documented as of this encounter Care Teams Benchroom Shop Optician Relationship Specialty Start Date End Date Barbra Fitch MD [email or web address] PCP - General Family Medicine 04/27/18 09/29/19 Barbra Fitch MD [email or web address] PCP - General Family Medicine 09/30/19 11/16/22 Mari Juarez MD [address] [place] [address] PCP - General Internal Medicine 11/17/22 Jack Junior MD [address] [place] [address] [email or web address] Historical LMR Provider 08/15/17 11/02/21 Aryan Arriaga MD [address] [place] [address] [email or web address] Historical LMR Provider 08/15/17 11/02/21 Dulce Maria Odom MD [email or web address] Historical LMR Provider 08/15/17 2 documented as of this encounter Additional Source Comments The information contained in this document represents components of the legal health record. It is not the complete legal health record.[facility]
--- OUTSIDE RECORDS SUMMARY | 2025-02-21 08:51 | XMS_ITS | Encounter Summary ---
Author Organization [facility] Address [address] [place] [address] Phone Care Team Providers Care Defect Cutter Name Role Phone Barbra Fitch MD Primary Care Provider [phone] Mari Juarez MD Primary Care Provider [phone] Encounter Details Date Type Department Care Team (Late st Contact Info) Description 12/24/2021 Procedure Pass [address] [place] [address] Social History Tobacco Use Types Packs/Day Years [...] st Contact Info) Description 10/31/2024 Procedure Pass [address] [place] [address] 04/17/2025 12:45 PM EDT Appointment [address] [place] [address] Mari Juarez MD [address] [place] [address] documented as of this encounter Visit Diagnoses Not on filedocumented in this encounter Additional Health Concerns Assessment Noted Time PHQ-2 Depression Total Score: 1 09/28/20 20 8:20 PM EST documented as of this encounter Care Teams Defect Cutter Relationship Specialty Start Date End Date Barbra Fitch MD [email or web address] PCP - General Family Medicine 09/30/19 Mari Juarez MD [address] [place] [address] PCP - General Internal Medicine 11/17/22 documented as of this encounter Additional Source Comments The information contained in this document represents components of the legal health record. It is not the complete legal health record.[facility]
--- OUTSIDE RECORDS SUMMARY | 2025-02-21 08:51 | XMS_ITS | Encounter Summary ---
Author Organization [facility] Address [address] [place] [address] Phone Care Team Providers Care Cord Tire Builder Name Role Phone Jack Junior MD Unavailable Aryan Arriaga MD Unavailable [phone] Dulce Maria Odom MD Unavailable [email or web address] Barbra Fitch MD Primary Care Provider [phone] Barbra Fitch MD Primary Care Provider [phone] Mari Juarez MD Primary Care Provider Encounter Details Date Type Department Care Team (Late Contact Info) Description 09/12/2019 Procedure Pass OR Admitting Dept - [facility] Department [address] [place] [address] Social History Tobacco Use Types Packs/Day Years [...] (Late Contact Info) Description 10/31/2024 Procedure Pass [address] [place] [address] 04/17/2025 12:45 PM EDT Appointment [address] [place] [address] Mari Juarez MD [address] [place] [address] documented as of this encounter Visit Diagnoses Not on filedocumented in this encounter Additional Health Concerns Assessment Noted Time PHQ-2 Depression Total Score: 0 06/23/20 19 3:05 PM EDT documented as of this encounter Care Teams Cord Tire Builder Relationship Specialty Start Date End Date Barbra Fitch MD [email or web address] PCP - General Family Medicine 04/27/18 09/29/19 Barbra Fitch MD [email or web address] PCP - General Family Medicine 09/30/19 11/16/22 Mari Juarez MD [address] [place] [address] PCP - General Internal Medicine 11/17/22 Jack Junior MD [address] [place] [address] [email or web address] Historical LMR Provider 08/15/17 11/02/21 Aryan Arriaga MD [address] [place] [address] [address] [place] [address] [email or web address] Historical LMR Provider 08/15/17 11/02/21 Dulce Maria Odom MD Historical LMR Provider 08/15/17 2 documented as of this encounter Additional Source Comments The information contained in this document represents components of the legal health record. It is not the complete legal health record.[facility]
--- OUTSIDE RECORDS SUMMARY | 2025-02-21 08:51 | XMS_ITS | Encounter Summary ---
Author Organization [facility] Address [address] [place] [address] Phone Care Team Providers Care Child Development Instructor Name Role Phone Barbra Fitch MD Primary Care Provider [phone] Mari Juarez MD Primary Care Provider [phone] Encounter Details Date Type Department Care Team (Late st Contact Info) Description 09/01/2022 Procedure Pass [address] [place] [address] Social History Tobacco Use Types Packs/Day Years [...] (Late Contact Info) Description 10/31/2024 Procedure Pass [address] [place] [address] 04/17/2025 12:45 PM EDT Appointment [address] [place] [address] Mari Juarez MD [address] [place] [address] documented as of this encounter Visit Diagnoses Not on filedocumented in this encounter Additional Health Concerns Assessment Noted Time PHQ-2 Depression Total Score: 1 09/28/20 20 8:20 PM EST documented as of this encounter Care Teams Child Development Instructor Relationship Specialty Start Date End Date Barbra Fitch MD [email or web address] PCP - General Family Medicine 09/30/19 Mari Juarez MD [address] [place] [address] PCP - General Internal Medicine 11/17/22 documented as of this encounter Additional Source Comments The information contained in this document represents components of the legal health record. It is not the complete legal health record.[facility]
--- OUTSIDE RECORDS SUMMARY | 2025-02-21 08:51 | XMS_ITS | Encounter Summary ---
Author Organization [facility] Address [facility] YR.MRKT [address] [address] Phone Care Team Providers Care Heavy Equipment Technician Name Role Phone Mari Juarez MD Primary Care Provider [phone] Encounter Details Date Type Department Care Team ([facility] st Contact Info) Description 11/16/2023 Procedure Pass [facility] - [address] [place] [address] Social History Tobacco Use Types Packs/Day Years [...] st Contact Info) Description 10/31/2024 Procedure Pass [address] [place] [address] 04/17/2025 12:45 PM EDT Appointment [address] [place] [address] Mari Juarez MD [address] [place] [address] documented as of this encounter Visit Diagnoses Not on filedocumented in this encounter Additional Health Concerns Assessment Noted Time PHQ-2 Depression Total Score: 1 09/28/20 20 8:20 PM EST documented as of this encounter Care Teams Heavy Equipment Technician Relationship Specialty Start Date End Date Mari Juarez MD [address] [place] [address] PCP - General Internal Medicine 11/17/22 documented as of this encounter Additional Source Comments The information contained in this document represents components of the legal health record. It is not the complete legal health record.[facility]
--- OUTSIDE RECORDS SUMMARY | 2025-02-21 08:51 | XMS_ITS | Encounter Summary ---
Author Organization [facility] Address [address] [place] [address] Phone Care Team Providers Care Assistant Casino Shift Manager Name Role Phone Jack Junior MD Unavailable Aryan Arriaga MD Unavailable [phone] Dulce Maria Odom MD Unavailable [email or web address] Barbra Fitch MD Primary Care Provider [phone] Mari Juarez MD Primary Care Provider [phone] Encounter Details Date Type Department Care Team (Late st Contact Info) Description 10/01/2020 Procedure Pass [address] [place] [address] Social History Tobacco Use Types Packs/Day Years [...] st Contact Info) Description 10/31/2024 Procedure Pass [address] [place] [address] 04/17/2025 12:45 PM EDT Appointment [address] [place] [address] Mari Juarez MD [address] [place] [address] documented as of this encounter Visit Diagnoses Not on filedocumented in this encounter Additional Health Concerns Assessment Noted Time PHQ-2 Depression Total Score: 1 09/28/20 20 8:20 PM EST documented as of this encounter Care Teams Assistant Casino Shift Manager Relationship Specialty Start Date End Date Barbra Fitch MD [email or web address] PCP - General Family Medicine 09/30/19 11/16/22 Mari Juarez MD [address] [place] [address] PCP - General Internal Medicine 11/17/22 Jack Junior MD [address] [place] [address] Historical LMR Provider 08/15/17 11/02/21 Aryan Arriaga MD [address] [place] [address] Historical LMR Provider 08/15/17 11/02/21 Dulce Maria Odom MD [email or web address] Historical LMR Provider 08/15/17 2 documented as of this encounter Additional Source Comments The information contained in this document represents components of the legal health record. It is not the complete legal health record.[facility]
--- OUTSIDE RECORDS SUMMARY | 2025-02-21 08:51 | XMS_ITS | Encounter Summary ---
Author Organization [facility] Address [address] [place] [address] Phone Care Team Providers Care Professor Of Geography Name Role Phone Jack Junior MD Unavailable Aryan Arriaga MD Unavailable Dulce Maria Odom MD Unavailable [email or web address] Claire Dorsey MD Primary Care Provider [phone] Dayanara Cruz SHUTTLELESS LOOM WEAVER Primary Care Provider [phone] Barbra Fitch MD Primary Care Provider Barbra Fitch MD Primary Care Provider Mari Juarez MD Primary Care Provider Encounter Details Date Type Department Care Team (Late st Contact Info) Description 12/30/2017 Transcribe Orders [address] [place] [address] Claire Dorsey MD [address] [place] [address] Anemia, unspecified type (Primary Dx); Fatigue, unspecified [...] st Contact Info) Description 10/31/2024 Procedure Pass [address] [place] [address] 04/17/2025 12:45 PM EDT Appointment [address] [place] [address] Mari Juarez MD [address] [place] [address] documented as of this encounter Results * (ABNORMAL) Lipid panel (12/30/2017 10:06 AM EST) HDL 72 mg/dL [facility] Comment: Interpretation: Risk Level ? Females Decreased ?>55mg/dL Average ?50-55 mg/dL Increased ?<50 mg/dL CHOLESTEROL 191 0 - 240 mg/dL [facility] TRIGLYCERIDES 61 30 - 160 mg/dL [facility] LDL 107 50 - 129 mg/dL [facility] Comment: LDL levels in terms of risk for coronary heart disease: <100 mg/dL: Optimal 100-129 mg/dL: Near or above optimal 130-159 mg/dL: Borderline high 160-189 mg/dL: High >190 mg/dL: Very High CARDIAC RISK RATIO 2.7(L) 3.3 - 4.4 C [facility] Blood 12/30/2017 10:0 6 AM EST 12/30/2017 10:08 AM EST Claire Dorsey MD LAB BLOOD ORDERABLES [facility] [address] [place] [address] * (ABNORMAL) Folate (12/30/2017 10:06 AM EST) FOLIC ACID >20.0(H) 4.2 - 19.9 ng/mL [facility] Blood 12/30/2017 10:0 6 AM EST 12/30/2017 10:08 AM EST Claire Dorsey MD LAB BLOOD ORDERABLES Performing Organization Address City/[facility]/ZIP Co de Phone Number [address] [address] * Vitamin B12 (12/30/2017 10:06 AM EST) VITAMIN B12 582 243 - 894 pg/mL [facility] Blood 12/30/2017 10:0 6 AM EST 12/30/2017 10:08 AM EST Claire Dorsey MD LAB BLOOD ORDERABLES Performing Organization Address [facility]/ZIP Co de Phone Number [address] [address] * (ABNORMAL) 25-OH vitamin D (12/30/2017 10:06 AM EST) 25 OH VIT D (TOTAL) 20(L) 30 - 1,000 ng/mL [facility] Blood 12/30/2017 10:0 6 AM EST 12/30/2017 10:08 AM EST Claire Dorsey MD LAB BLOOD ORDERABLES Performing Organization Address City/[facility]/ZIP Co de Phone Number [address] [address] * TSH with reflex (12/30/2017 10:06 AM EST) TSH 1.75 0.27 - 4.20 uIU/mL [facility] Blood 12/30/2017 10:0 6 AM EST 12/30/2017 10:08 AM EST Claire Dorsey MD LAB BLOOD ORDERABLES Performing Organization Address City/[facility]/ZIP Co de Phone Number [address] [address] * (ABNORMAL) Comprehensive metabolic panel (12/30/2017 10:06 AM EST) SODIUM 137 133 - 146 mmol/L [facility] POTASSIUM 3.9 3.3 - 5.1 mmol/L [facility] CHLORIDE 100 96 - 108 mmol/L [facility] CO2 25 21 - 35 mmol/L [facility] BUN 17 6 - 19 mg/dL [facility] CREATININE 0.70 0.5 - 1.5 mg/dL [facility] GLUCOSE 96 70 - 99 mg/dL [facility] ALBUMIN 4.7 3.9 - 4.8 g/dL [facility] TOTAL PROTEIN 7.7 6.5 - 8.0 g/dL [facility] CALCIUM 9.5 8.4 - 10.3 mg/dL [facility] ALKALINE PHOSPHATASE 30(L) 39 - 117 U/L [facility] TOTAL BILIRUBIN 0.5 0.0 - 1.2 mg/dL [facility] AST 14 0 - 37 U/L [facility] ALT 13 0 - 40 U/L [facility] GLOBULIN 3.0 1 - 4.8 g/dL [facility] EGFR 115 >59 mL/min/1.7 3m2 [facility] Comment:If patient is black, multiply result by 1.159. The eGFR calculation has changed from the MDRD equation to the CKD-EPI equation as of December 29, 2017. ANION GAP 16 10 - 20 mmol/L [facility] Blood 12/30/2017 10:0 6 AM EST 12/30/2017 10:08 AM EST Claire Dorsey MD LAB BLOOD ORDERABLES [facility] [address] [place] [address] * CBC (12/30/2017 10:06 AM EST) WBC 5.76 3.40 - 11.20 K/uL [facility] RBC 4.17 3.80 - 4.80 M/uL [facility] HGB 12.9 12.0 - 15.0 g/dL [facility] HCT 38.6 36.0 - 46.0 % [facility] PLT 214 130 - 400 K/uL [facility] MCV 92.6 79.0 - 98.0 fL [facility] MCH 30.9 27.0 - 34.8 pg [facility] MCHC 33.4 31.5 - 36.0 g/dL [facility] RDW 12.5 10.8 - 14.6 % [facility] MPV 10.3 9.4 - 12.4 fl [facility] NRBC 0.00 /100 WBCs [facility] ABSOLUTE NRBC 0.00 K/uL [facility] Blood 12/30/2017 10:0 6 AM EST 12/30/2017 10:08 AM EST Claire Dorsey MD LAB BLOOD ORDERABLES Performing Organization Address City/State/[facility] Co de Phone Number [address] [address] documented in this encounter Visit Diagnoses Diagnosis Anemia, unspecified type- Primary Fatigue, unspecified type Avitaminosis D Unspecified vitamin D deficiency Routine general medical examination at a health care facility documented in this encounter Care Teams Professor Of Geography Relationship Specialty Start Date End Date Claire Dorsey MD [address] [place] [address] [email or web address] PCP - General Internal Medicine 12/30/17 04/07/18 Dayanara Cruz NP [address] [place] [address] [email or web address] PCP - General Family Medicine 04/08/18 04/26/18 Barbra Fitch MD [address] [place] [address] [email or web address] PCP - General Family Medicine 04/27/18 09/29/19 Barbra Fitch MD [address] [place], [place] [address], [place] [address] [email or web address] PCP - General Family Medicine 09/30/19 11/16/22 Mari Juarez MD [address] [place] [address] PCP - General Internal Medicine 11/17/22 Jack Junior MD [address] [place] [address] [email or web address] Historical LMR Provider 08/15/17 11/02/21 Aryan Arriaga MD [address] [place] [address] [address] [place] [address] Historical LMR Provider 08/15/17 11/02/21 Dulc eMaria Odom MD [email or web address] Historical LMR Provider 08/15/17 2 documented as of this encounter Additional Source Comments The information contained in this document represents components of the legal health record. It is not the complete legal health record.[facility]
--- OUTSIDE RECORDS SUMMARY | 2025-02-21 08:51 | XMS_ITS | Clinical Summary ---
Author Organization [facility] Address [address] [place] [address] Phone Care Team Providers Care Director Of Institutional Giving Name Role Phone Mari Juarez MD Primary Care Provider [phone] Allergies Active Allergy Reactions Criticality Noted Date [...] any other issues. She understands and agrees. Immunizations Name Administration Dates Next Due HPV9 [...] st Contact Info) Description 10/31/2024 Procedure Pass [place] [address] [place], [place] [address] 04/17/2025 12:45 PM EDT Appointment [address] [place], [place] [address] Mari Juarez MD [facility] [address] Health Maintenance Due Date Last Done Comments SMOKING Hx and SMOKELESS TOBACCO SCREENING 1998 HEPATITIS C SCREENING 2003 HIV ONE-TIME SCREENING (18-65 YEARS) 2003 PAP SMEAR 02/24/2021 02/24/2018, 11/2017, 12/17/2015 DEPRESSION SCREENING 09/28/2021 09/28/2020 INFLUENZA VACCINE (#1) 2024 COVID-19 VACCINE ( season) 2024 02/01/2021 MAMMOGRAM 01/03/2025 01/04/2024, 10/27, 11/11/2021, Additional history exists Adult Td,Tdap Booster 12/23/2026 12/23/2016, 007 HEPATITIS [...] this topic Medical Devices Implanted Type Area Auto Salvage Worker Device Identifier Shelf Expiration Date Model / Serial / Lot Mesh Graft 4.5in [address] Polypropylene Hernia Monofil Hydrogel Echo Ps Positioning System Repair Kendall - [id number] Implanted:Qty: 1 on 09/12/2019 by Ruth Mcgovern MD at [facility] Abdomen DAVOL 07/23/2021 [id number] / / [id number] Device Fixation 37mm Optifix Pdlla Smooth Head Hollow Core Angled Tip Absorbable 30 Fastner Bx/5ea - [id number] Implanted:Qty: 1 on 09/12/2019 by Ruth Mcgovern MD at [facility] Abdomen DAVOL 10/22/2020 [id number] / / [id number] Procedures Procedure Name Priority Date/Time Associated Diagnosis [...] SEE NARRATIVE - 03/02/2018 10:32 [place] [address] Polishing Wheel Repairer: Yasmeen Wang MD ?? SERVICE SPECIALIST Cytology Report FINAL DIAGNOSIS A. ??PAP SMEAR [...] advised. This HPV test was performed at [facility], [address] [place] [address]. The accuracy and precision of this test has been verified in the Cytopathology laboratory of the [facility]. This test has not been cleared or approved by the U.S. Food and Drug Administration (FDA). ? CLINICAL HISTORY Date of Last Menstrual Period: ??N/A Treatment History: ??Other: Had endometrial ablation. Other Clinical Conditions: ??Screening Pap SPECIMEN SOURCE A: PAP SMEAR (SUREPATH) C Patient Name: ??FUNMILAYO HERNANDEZ : ??1985 (Age: 32) Sex: ??F Institution: ??[facility] Date of Collection: ??02/24/2018 Date of Reported: ??03/02/2018 10:32 Results to: Aryan Arriaga MD, BS Aryan Arriaga MD CYTOLOGY ORDERABLES SEE NARRATIVE from Last 3 Months or Most Recently Relevant to Health Maintenance [place], [place] Personal/Family Self [address] [place] [address] [place] Personal/Family Self [address] [place] [phone] [place] Personal/Family Self [address] [place] [phone] [place] Personal/Family Self [address] [place] [phone] Advance Directives For more information, please contact: [phone] (9AM - 5PM [facility], Thursday-Thursday) Documents on File Type Date Recorded Patient Livestock Agent Expl anation Healthcare Proxy 09/13/2019 10:57 AM HEAL TH CARE PROXY * Full Code (Presumed) (Latest Code Status on File) Date Activated Date Inactivated Comments 09/12/2019 7:59 AM 09/12/2019 2:23 PM Care Teams Director Of Institutional Giving Relationship Specialty Start Date End Date Mari Juarez MD [address] [place] [address] PCP - General Internal Medicine 11/17/22 Additional Source Comments The information contained in this document represents components of the legal health record. It is not the complete legal health record.[facility]
--- OUTSIDE RECORDS SUMMARY | 2025-02-21 08:51 | XMS_ITS | Encounter Summary ---
Author Organization [facility] Address [address] [place] [address] Phone Care Team Providers Care Planetarium Sky Show Technician Name Role Phone Jack Junior MD Unavailable Aryan Arriaga MD Unavailable [phone] Dulce Maria Odom MD Unavailable [email or web address] Barbra Fitch MD Primary Care Provider Mari Juarez MD Primary Care Provider Encounter Details Date Type Department Care Team (Late st Contact Info) Description 08/26/2021 Procedure Pass [address] [place] [address] Social History Tobacco Use Types Packs/Day Years [...] Contact Info) Description 10/31/2024 Procedure Pass [address] [place] [address] 04/17/2025 12:45 PM EDT Appointment [facility] - [address] [place] [address] Mari Juarez MD [address] [place] [address] documented as of this encounter Visit Diagnoses Not on filedocumented in this encounter Additional Health Concerns Assessment Noted Time PHQ-2 Depression Total Score: 1 09/28/20 20 8:20 PM EST documented as of this encounter Care Teams Planetarium Sky Show Technician Relationship Specialty Start Date End Date Barbra Fitch MD [email or web address] PCP - General Family Medicine 09/30/19 11/16/22 Mari Juarez MD [address] [place] [address] PCP - General Internal Medicine 11/17/22 Jack Junior MD [address] [place] [address] Historical LMR Provider 08/15/17 11/02/21 Aryan Arriaga MD [address] [place] [address] Historical LMR Provider 08/15/17 11/02/21 Dulce Maria Odom MD Historical LMR Provider 08/15/17 2 documented as of this encounter Additional Source Comments The information contained in this document represents components of the legal health record. It is not the complete legal health record.[facility]
--- OUTSIDE RECORDS SUMMARY | 2025-02-21 08:51 | XMS_ITS | Encounter Summary ---
Author Organization [facility] Address [address] [facility] [address] [place] [address] Phone Care Team Providers Care Welding Machine Setter Name Role Phone Mari Juarez MD Primary Care Provider Encounter Details Date Type Department Care Team (Late st Contact Info) Description 10/31/2024 Transcribe Orders Virtual Department [address] [place] [address] Mari Juarez MD [facility] [place] [address] Breast screening (Primary Dx) Social History Tobacco [...] st Contact Info) Description 10/31/2024 Procedure Pass [address] [place] [address] 04/17/2025 12:45 PM EDT Appointment [address] [place] [address] Mari Juarez MD [address] [place] [address] Scheduled Orders Name Type Priority Associated Diagnoses Orde r Schedule Mammogram Screening (Bilateral) Imaging Routine Breast screening Expected: 12/01/2024, Expires: 10/31/2025 documented as of this encounter Visit Diagnoses Diagnosis Breast screening- Primary Breast screening, unspecified documented in this encounter Additional Health Concerns Assessment Noted Time PHQ-2 Depression Total Score: 1 09/28/20 20 8:20 PM EST documented as of this encounter Care Teams Welding Machine Setter Relationship Specialty Start Date End Date Mari Juarez MD [address] [place] [address] PCP - General Internal Medicine 11/17/22 documented as of this encounter Additional Source Comments The information contained in this document represents components of the legal health record. It is not the complete legal health record.[facility]
== END 2025-02-21 08:32 | disposition home or self-care (01) ==
LOC: HO.MAMMO 08:31
PROVIDERS: PCP Internal Medicine; Visit Provider Surgery
DX: R92.8 Other abnormal and inconclusive findings on diagnostic imaging of breast (principal); Z91.89 Other specified personal risk factors, not elsewhere classified
CPT/HCPCS: 76642

== ENCOUNTER → 2025-03-16 07:41 | Outpatient (BNV) | payer OTHER, SELFPAY | PROVIDERS: PCP Internal Medicine; Visit Provider Internal Medicine | DX: N63.22 Unspecified lump in the left breast, upper inner quadrant (principal); Z80.3 Family history of malignant neoplasm of breast | CPT/HCPCS: 19085 ==

== ENCOUNTER 2025-03-16 07:44 | Outpatient (REF) | payer OTHER, SELFPAY ==
--- NOTE | ~2025-03-16 | MM_ITS ---
EXAMINATION: MR GUIDED VACUUM-ASSISTED CORE BIOPSY BREAST, LEFT MM DIGITAL MAMMOGRAPHY POST BIOPSY, LEFT CLINICAL INFORMATION: Enhancing mass in the upper inner left breast on recent MRI strong family history of breast cancer.. COMPARISON: Priors on PACS. TECHNIQUE/PROCEDURE: Informed consent was obtained from the patient after discussion of the benefits, risks, and alternatives to biopsy today. Patient appeared to understand. Gave opportunity for questions. Patient signed consent form. Biopsy is performed under MRI guidance using breast surface coil. Imaging is performed without and with use of Gadavist gadolinium contrast. ONOFFMIX (?) introducer localization system is used with grid. LESION: Enhancing oval mass upper inner left breast.. LOCAL ANESTHESIA: 10 mL 1% lidocaine; 6 mL 1% lidocaine with epinephrine. NEEDLE: Paracosm 9-gauge vacuum assisted core biopsy device. APPROACH: Lateral. CORES: 12. CLIP: Triangular marker dumbbell shaped. POSTPROCEDURE UNILATERAL DIGITAL MAMMOGRAM: Mammography is performed using digital mammography in CC and MLO views. There are scattered areas of fibroglandular density (ACR BI-RADS breast composition Category b). The clip marker is in position. No gross hematoma. The patient tolerated the procedure well. No immediate complications. Home instructions reviewed with the patient. Final pathology results are pending. MM/MM tomosynthesis diagnostic LT IMPRESSION: 1. Status post MRI guided vacuum-assisted core biopsy left breast with clip placement. 2. Final pathology results pending. An addendum report will be issued. Electronically signed by: Zoie Morales DO 03/16/2025 12:23 PM EDT
--- NOTE | ~2025-03-16 | MR_ITS ---
EXAMINATION: MR GUIDED VACUUM-ASSISTED CORE BIOPSY BREAST, LEFT MM DIGITAL MAMMOGRAPHY POST BIOPSY, LEFT CLINICAL INFORMATION: Enhancing mass in the upper inner left breast on recent MRI strong family history of breast cancer.. COMPARISON: Priors on PACS. TECHNIQUE/PROCEDURE: Informed consent was obtained from the patient after discussion of the benefits, risks, and alternatives to biopsy today. Patient appeared to understand. Gave opportunity for questions. Patient signed consent form. Biopsy is performed under MRI guidance using breast surface coil. Imaging is performed without and with use of Gadavist gadolinium contrast. [employer] introducer localization system is used with grid. LESION: Enhancing oval mass upper inner left breast.. LOCAL ANESTHESIA: 10 mL 1% lidocaine; 6 mL 1% lidocaine with epinephrine. NEEDLE: [employer] 9-gauge vacuum assisted core biopsy device. APPROACH: Lateral. CORES: 12. CLIP: Triangular marker dumbbell shaped. POSTPROCEDURE UNILATERAL DIGITAL MAMMOGRAM: Mammography is performed using digital mammography in CC and MLO views. There are scattered areas of fibroglandular density (ACR BI-RADS breast composition Category b). The clip marker is in position. No gross hematoma. The patient tolerated the procedure well. No immediate complications. Home instructions reviewed with the patient. Final pathology results are pending. MR/MR guided breast biopsy LT IMPRESSION: 1. Status post MRI guided vacuum-assisted core biopsy left breast with clip placement. 2. Final pathology results pending. An addendum report will be issued. Electronically signed by: Zoie Morales DO 03/16/2025 12:23 PM EDT
[2025-03-16] MEDS: Lidocaine HCl 1 % MPF 30 ML VIAL SUBCUT (09:48)
[2025-03-16] MEDS: Lidocaine HCl 1%/Epi 1:100,000 10 ML VIAL SUBCUT (09:50)
[2025-03-16] MEDS: Sodium Bicarbonate 8.4% 50 MEQ/50 ML VIAL SUBCUT (09:51)
[2025-03-16] MEDS: gadobutroL 7.5 ML VIAL IVPUSH (09:53)
== END 2025-03-16 07:45 | disposition home or self-care (01) ==
LOC: HO.MRI 07:44
PROVIDERS: PCP Internal Medicine; Visit Provider Surgery
DX: R92.8 Other abnormal and inconclusive findings on diagnostic imaging of breast (principal)
CPT/HCPCS: 19085; 77061; 77065; 88305; A4648; A9585; J2003; J2004

== ENCOUNTER 2025-03-31 09:04 | Outpatient (AMB) | payer OTHER, SELFPAY ==
--- NOTE | 2025-03-31 09:05 | A.OFFVIS_ITS ---
Vital Signs 03/31/25 09:09 Height 5 ft 4 in Weight 121 lb BMI 20.8 BP 138/67 Blood Pressure Location Lt brachial Position Sitting Pulse 96 Intake Visit Reasons: s/p MRI guided breast bx 03/16/25 Intake Note: Patient is seen in office for MRI guided biospy RESULTS. Pt c/o: here for results, denies any concerns MRI bx: 03/16/25 F/up Mazz Sched: 07/25/25 @ 9:15 am Clinical Biochemical Geneticist Required: No Accompanied by: Self / Same As Patient Allergies lorazepam [From Ativan] Adverse Reaction (Mild, Verified 03/31/25 09:09) Vomiting sulfamethoxazole [From Bactrim] Adverse Reaction (Unknown, Verified 03/31/25 09:09) vomitting trimethoprim [From Bactrim] Adverse Reaction (Unknown, Verified 03/31/25 09:09) vomitting HPI Comments Details: 40-year-old female patient returning following her recent MR guided core biopsy of the left breast. She has a strong family history of breast cancer including her mother who developed breast cancer at the age of 28 and her maternal grandmother who developed breast cancer at the age of 74. She also has a paternal aunt who developed breast cancer at the age of 67. The patient has a previous history of an abnormal breast MRI which required an MR guided biopsy performed last year at [facility] in [place] pathology revealed a nodular area of adenosis, microcysts, dilated ducts, and ductal hyperplasia with no atypia. Fibroadenoma it was change and a background of ductal hyperplasia without atypia was also identified. She underwent genetic testing on 05/15/2023 which revealed no clinically significant mutations. 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 Her breast cancer risk score was calculated at 31.6%. She again had a suspicious finding by MRI in the right breast underwent MR guided biopsy at [facility] on 06/06/2024. Subsequent pathology revealed benign breast tissue with adenosis and dense stromal fibrosis. Six-month follow-up MRI was recommended and obtained on 01/16/2025 at [facility]. This revealed a new 7 x 6 x 7 mm oval enhancing mass in the upper central slightly inner breast 2-3 cm from the nipple felt to be suspicious and targeted ultrasound was recommended. MR guided biopsy performed on 03/16/2025 revealed focal atypical lobular hyperplasia, pseudoangiomatous stromal hyperplasia, collagenous spherulosis and columnar cell changes; negative for malignancy. She tolerated the procedure well and denies any ongoing breast symptoms. A copy of the pathology report was provided to the patient today. [facility] Medical History FH: breast cancer Left breast mass Dysmenorrhea Normal Pap smear Calcific tendinitis Surgical History History of endometrial ablation (2016) H/O hernia repair Family History Mother Breast cancer, Onset Age: 28 Father Asthma Substance use disorder Maternal Grandmother Breast cancer, Onset Age: 74 Paternal Aunt Breast cancer, Onset Age: 60 Paternal Uncle Substance use disorder Paternal Grandfather Substance use disorder Social History Household Members Other:: lives with partner, trying to quit smoking, cleans exercise, 2 boys (18,13) Housing: Apartment Alcohol intake: never Patient Tobacco Use Status: Former Tobacco user Tobacco use type: Cigarette Cigarettes Per Day: 5 Years Smoked: 23 e-Cigarette/Vaping Use: Never Used service: No Current occupational status: employed Cognitive needs: No Hearing needs: No Vision needs: No Female Reproductive History Menstrual Age of Menarche: 13 Review of Systems Const All systems reviewed & are unremarkable except as noted in HPI and below Physical Exam Vital Signs: Last Vital Signs Pulse 96 03/31/25 09:09 BP 138/67 03/31/25 09:09 BMI result Body Mass Index 20.8 Const General: comfortable Nutritional Appearance: well nourished Chest Other: Exam deferred Resp Effort & Inspection: normal respiratory effort, no audible wheezes, no cough and no respiratory distress Skin Other: Warm, dry, no rash Extrem Other: No edema Assessment & Plan Assessment & Plan (1) Atypical lobular hyperplasia of left breast: Code(s): N60.92 - Unspecified benign mammary dysplasia of left breast Category: Medical (2) At high risk for breast cancer: Code(s): Z91.89 - Other specified personal risk factors, not elsewhere classified Category: Medical Plan 40-year-old female patient determined to be at high risk for breast cancer found on recent MR guided core biopsy of the left breast to have an area of atypical lobular hyperplasia. I reviewed the pathology results in detail with the patient and recommended a left breast lumpectomy with localizer. After discussion of the procedure, risks, and alternatives, she consents to the surgery. Coding Level of Care Code Est Pt Level 3 (84397) Complex EM visit Add On G2211 Diagnoses Atypical lobular hyperplasia of left breast N60.92 At high risk for breast cancer Z91.89
[2025-03-31 09:09] VITALS: BP 138/67; PULSE 96; BMI 20.8
== END 2025-03-31 09:18 | disposition home or self-care (01) ==
LOC: HO.HGS 09:04
PROVIDERS: PCP Internal Medicine; Visit Provider Surgery
DX: N60.92 Unspecified benign mammary dysplasia of left breast (principal); Z91.89 Other specified personal risk factors, not elsewhere classified
CPT/HCPCS: 99213; G2211

== ENCOUNTER → 2025-03-31 09:04 | Outpatient (BNVA) | payer OTHER, SELFPAY | PROVIDERS: PCP Internal Medicine; Visit Provider Surgery | DX: N60.32 Fibrosclerosis of left breast (principal); N60.92 Unspecified benign mammary dysplasia of left breast; Z91.89 Other specified personal risk factors, not elsewhere classified | CPT/HCPCS: 99212 ==

== ENCOUNTER 2025-04-13 13:58 | Outpatient (REF) | payer OTHER, SELFPAY ==
--- NOTE | ~2025-04-13 | MM_ITS ---
EXAMINATION: MM MAMMOGRAM GUIDED RFID LOCALIZATION BREAST, LEFT CLINICAL INFORMATION: Left breast atypical lobular hyperplasia presurgical localization. COMPARISON: [facility] on PACS. TECHNIQUE NEEDLE LOC: Proper informed consent is obtained from the patient after discussion of the procedure, potential risks and complications, and alternatives including declining the procedure today. Patient was given an opportunity for questions. The patient appeared to understand. The patient consented to the procedure and signed the consent form. GUIDANCE: Digital mammography. APPROACH: Superior. TARGET: Barbell marker clip. ANESTHESIA: carbonated lidocaine 1%: 6 mL. LOCALIZATION SYSTEM: SRCH2 LOCallizer Wire-Free Guidance System with 12g needle applicator was placed superiorly into the left breast, the patient was removed from the mammography unit 2 view of the breast and localization applicator on MLO views however patient was lightheaded and presyncopal therefore the localization needle was removed and patient was stabilized and discharge from the department to the emergency medical instructor bringing the patient to the emergency room for further treatment and evaluation. The patient was stable and felt back to normal upon leaving the mammography department. No RFID tag was deployed. MM/MM RF Tag device LT IMPRESSION: -Status post attempted RFID tag localization deferred to a later date as patient was not feeling well. Communication with patients breast surgeon was made. Electronically signed by: Zoie Morales DO 04/14/2025 10:02 AM EDT
== END 2025-04-13 13:59 | disposition home or self-care (01) ==
LOC: HO.MAMMO 13:58
PROVIDERS: PCP Internal Medicine; Visit Provider Surgery
DX: N60.92 Unspecified benign mammary dysplasia of left breast (principal)
CPT/HCPCS: 19281; C1819

== ENCOUNTER 2025-04-13 15:24 | Emergency (ER) | payer OTHER, SELFPAY ==
--- NOTE | ~2025-04-13 | XR_ITS ---
CLINICAL HISTORY: syncope Two views of the chest. COMPARISON: None provided. FINDINGS: Normal heart and mediastinal contours. No consolidation. No pleural effusion or pneumothorax. No acute fracture. IMPRESSION: 1. No consolidation. This document has been electronically signed by: Gabriel Rice MD on 04/13/2025 18:17:39
[2025-04-13 15:38] VITALS: BP 110/70; BP 111/63; PULSE 61; PULSE 62; RESP 18; TEMP 36.7; O2SAT 100; BMI 21.1
--- NOTE | 2025-04-13 16:03 | ED_ITS ---
HPI - General Adult General Chief complaint: Syncope Stated complaint: syncopal episode during procedure Time Seen by Provider: 04/13/25 16:03 Source: patient and EMS Mode of arrival: EMS Limitations: no limitations History of Present Illness ED Provider: Ambar Rosales PA-C HPI narrative: Patient is a 40 year old assigned female at with a history of high risk breast tissue requiring surgical management presenting to the emergency department today after a syncopal episode during a procedure. Patient states that she was getting an RFID chip implanted in her breast so the surgeon could locate the area appropriately for her future lumpectomy when she passed out. Patient states that she did not have anything to eat before the procedure. Patient denies any dizziness, lightheadedness, abdominal pain, nausea, vomiting, fever, chills, blurry vision, double vision, loss of vision, chest pain, difficulty breathing, shortness of breath, back pain, night sweats, pain with urination, increased urinary frequency, increased urinary urgency, blood in her urine or stool, recent trauma or falls, bowel incontinence, bladder incontinence, or any other complaints at this time. Relieving factors: none Exacerbating factors: none Associated symptoms: syncope Treatments prior to arrival: none Related Data Home Medications ?Medication ?Instructions ?Recorded ?Confirmed ascorbic acid (vitamin C) 500 mg mg PO 07/27/23 capsule cholecalciferol (vitamin D3) 25 25 mcg PO DAILY 01/20/25 mcg (1,000 unit) capsule multivitamin 1 tab PO DAILY 07/27/2312/25 Allergies Allergy/AdvReac Type Severity Reaction Status Date / Time lorazepam (From Ativan) AdvReac Mild Vomiting Verified 04/13/25 15:42 sulfamethoxazole (From AdvReac Unknown vomitting Verified 03/31/25 09:09 Bactrim) trimethoprim (From Bactrim) AdvReac Unknown vomitting Verified 03/31/25 09:09 Review of Systems 2 Constitutional: Constitutional: Reports no additional constitutional complaints, Denies chills, Denies fever(s) and Denies night sweats Eyes: Eyes: Reports no additional eye complaints, Denies blurry vision, Denies change in vision, Denies diplopia, Denies eye discharge, Denies loss of vision and Denies eye pain ENT: Denies dizziness Cardiovascular: Cardiovascular: Reports no additional cardiovascular complaints, Denies chest pain, Reports syncope, Denies lightheadedness, Denies Loss of Consciousness and Denies dyspnea Respiratory: Respiratory: Reports no additional respiratory complaints and Denies dyspnea Gastrointestinal: Gastrointestinal: Reports no additional gastrointestinal complaints, Denies abdominal pain, Denies melena, Denies hematochezia, Denies change in bowel habits and Denies change in stool character Genitourinary: Genitourinary: Denies hematuria, Denies urinary frequency, Denies dysuria, Denies urinary incontinence, Denies urinary hesitancy and Denies urinary urgency Musculoskeletal: Musculoskeletal: Reports no additional musculoskeletal complaints, Denies numbness and Denies tingling Neurologic: Denies dizziness, Reports syncope, Denies loss of vision, Denies numbness and Denies tingling Psychiatric: Psychiatric: Reports no additional psychiatric complaints Endocrine: Endocrine: Reports no additional endocrine complaints Hematologic/Lymphatic: Hematologic/Lymphatic: Reports no additional hematologic/lymphatic complaints Allergic/Immunologic: Allergic/Immunologic: Reports no additional allergic/immunologic complaints PMF Past Medical History Attestation statement: The following information was validated with the patient. (all information validated with the patient's ) Source: old records reviewed, obtained from family (patient's provided additional history and confirmed the history provided by the patient) and nursing notes reviewed Medical History FH: breast cancer Left breast mass Dysmenorrhea Normal Pap smear Calcific tendinitis Surgical History History of endometrial ablation (2016) H/O hernia repair Family History Family History Mother Breast cancer, Onset Age: 28 Father Asthma Substance use disorder Maternal Grandmother Breast cancer, Onset Age: 74 Paternal Aunt Breast cancer, Onset Age: 60 Paternal Uncle Substance use disorder Paternal Grandfather Substance use disorder Social History Social History Household Members Other:: lives with partner, trying to quit smoking, cleans exercise, 2 boys (18,13) Housing: Apartment Alcohol intake: never Patient Tobacco Use Status: Former Tobacco user Tobacco use type: Cigarette Cigarettes Per Day: 5 Years Smoked: 23 e-Cigarette/Vaping Use: Never Used service: No Current occupational status: employed Cognitive needs: No Hearing needs: No Vision needs: No Physical Exam ED Vital Signs: Vital Signs - 24 hr 04/13/25 17:49 Temperature 98.0 F Pulse Rate 71 Respiratory Rate 16 Blood Pressure 117/76 Pulse Oximetry 100 Oxygen Delivery Method Room Air BMI result Body Mass Index 21.1 Const General: cooperative, no acute distress, alert and awake Nutritional Appearance: well nourished Orientation/consciousness: patient oriented x3 HENMT Head: Yes normal to inspection and Yes atraumatic Ears: hearing grossly normal bilaterally and external ears normal General nose exam: Normal external nose present, no nasal discharge noted and no epistaxis Face and sinus: Yes normal facial exam, No abrasion and No laceration Mouth: Normal oral and palatal mucosa present, no drooling and no muffled voice Eyes General: appearance normal, both eyes and all related structures Periorbital: periorbital findings normal Eyelids: Yes eyelids normal Conjunctivae: conjunctivae normal Pupils: Equal, round and reactive pupils present EOM: EOMs intact bilaterally Neck Neck: Yes normal visual inspection, Yes full ROM and Yes no lymphadenopathy Resp Effort & Inspection: normal respiratory effort and able to speak in complete sentences Neuro General: patient oriented x3, moves all extremities and CN's II-XI intact bilaterally Cranial nerves: Yes Equal, round and reactive pupils present Cognition (Neuro): normal cognition Extrem General: Yes normal to inspection, Yes full ROM and Yes capillary refill normal Psych Appearance: grossly normal Mental Status: mental status grossly normal Affect: normal affect Attitude: cooperative Thought process: Normal thought process present Thought content: Normal thought content present Insight: Good insight present (Psych) Medications Administered Discontinued Medications Generic Name Dose Route Start Last Admin Trade Name Freq PRN Reason Stop Dose Admin Sodium Chloride 1,000 mls @ 999 mls/hr 04/13/25 16:15 04/13/25 17:21 Ns IV 04/13/25 17:15 Infused .Q1H1M CASSIE Infusion Medical Decision Making Medical Decision Making [facility] Narrative: Patient is a 40 year old assigned female at with a history of high risk breast tissue requiring surgical management presenting to the emergency department today after a syncopal episode during a procedure. Patient's physical exam was unremarkable. Patient's blood work was unremarkable. Patient's urine showed no acute process. Patient's EKG was unremarkable. Patient's chest x-ray showed no acute process. I explained my physical exam findings as well as all test results to the patient and the patient's . I answered all questions asked by the patient and the patient's . Patient received IV fluids and a sandwich which, upon re-evaluation, she stated it helped her symptoms significantly. I stressed the importance of the patient taking her medication as directed (either prescribed or as the over the counter packaging recommends). I stressed the importance of the patient following up with her primary care provider. I stressed the importance of the patient returning to the emergency department immediately if her symptoms were to worsen or if she were to develop any dizziness, shortness of breath, difficulty breathing, chest pain, blurry vision, loss of vision, nausea, vomiting, abdominal pain, fever, chills, back pain, or any other complaints. Patient and the patient's verbalized agreement and understanding with this treatment plan and discharge. Differential Diagnosis Differential Diagnoses: The differential diagnosis associated with the presentation includes Syncope Vasovagal syncope Admission/Observation Consideration of admission/observation: Escalation of care including admission/observation considered Patient would have been admitted to the hospital had her work up had any findings where hospital admission was appropriate and her clinical presentation warranted hospital admission. Lab Data [facility] Lab Attestation statement: I reviewed the patient's lab results. My interpretation of these results are in the [facility] Rationale portion of this note. 04/13/25 16:24 04/13/25 16:24 Labs: Lab Results 04/13/25 04/13/25 Range/Units 16:24 17:41 WBC 8.3 (4.8-10.8) X10*3/uL RBC 3.81 L (4.20-5.50) X10*6/uL Hgb 12.1 (12.0-16.0) g/dl Hct 35.3 L (37.0-47.0) % MCV 92.7 (80.0-98.0) fL MCH 31.8 (27.0-33.0) pg MCHC 34.3 (31.0-35.0) g/dl RDW 12.6 (11.0-16.0) % Plt Count 208 (160-400) X10*3/uL MPV 9.2 L (9.4-12.3) fL Immature Gran % (Auto) 0.2 (0.0-0.4) % Neut % (Auto) 69.6 (45-73) % Lymph % (Auto) 22.5 (20-40) % Grant % (Auto) 5.8 (2-11) % Eos % (Auto) 1.3 (0-4) % Baso % (Auto) 0.6 (0-2) % Lymph # (Auto) 1.9 (1.2-4.9) X10*3/uL Grant # (Auto) 0.5 (0.1-1.2) X10*3/uL Eos # (Auto) 0.1 (0.0-0.4) X10*3/uL Baso # (Auto) 0.1 (0.0-0.2) X10*3/uL Abs Immat Gran (auto) 0.02 (0.00-0.03) X10*3/uL Absolute Neuts (auto) 5.8 (2.0-8.3) x10*3/uL Absolute Nucleated RBC 0.000 (0.0-0.012) X10*3/uL Nucleated RBC % (auto) 0.0 (0.0-0.2) /100WBC PT 12.6 H (10.9-12.4) SEC INR 1.1 (0.9-1.1) Sodium 139 (135-145) mmol/L Potassium 3.7 (3.3-5.1) mmol/L Chloride 106 (96-108) mmol/L Carbon Dioxide 25 (22-29) mmol/L Anion Gap 12 (12-20) BUN 17 H (9-16) mg/dL Creatinine 0.76 (0.5-1.4) mg/dL Estim Creat Clear Calc 84.9 Estimated GFR > 60 Random Glucose 97 (60-115) mg/dL Calcium 9.1 D (8.4-10.2) mg/dL Magnesium 1.9 (1.6-2.6) mg/dL Total Bilirubin 0.8 (0.0-1.0) mg/dL AST 21 (5-31) U/L ALT 17 (0-31) U/L Alkaline Phosphatase 32 L (39-117) U/L Troponin I High Sens < 2.7 (<3.5-17.0) ng/L Total Protein 6.6 (6.5-8.0) g/dL Albumin 4.3 (3.5-5.0) g/dL Beta HCG, Quant < 2 mIU/mL Urine Color Yellow Urine Appearance Clear Urine pH 7.5 (5.0-9.0) Ur Specific [place] 1.010 (1.005-1.025) Urine Protein Negative (Neg-Trace) mg/dL Urine Glucose (UA) Negative (Negative) mg/dL Urine Ketones Negative (Negative) mg/dL Urine Blood Negative (Negative) Urine Nitrite Negative (Negative) Ur Leukocyte Esterase Negative (Negative) Influenza Type A (PCR) NEGATIVE (Negative) Influenza Type B (PCR) NEGATIVE (Negative) RSV RNA Qual (PCR) NEGATIVE (Negative) SARS-CoV-2 RNA (RT-PCR) NEGATIVE (Negative) Independent Interpretation I performed an independent interpretation of an: EKG and Plain X-Ray (chest) Interpretation: My interpretation is in agreement with the radiologist's impression of this imaging study. L CLINICAL HISTORY: syncope Two views of the chest. COMPARISON: None provided. FINDINGS: Normal heart and mediastinal contours. No consolidation. No pleural effusion or pneumothorax. No acute fracture. IMPRESSION: 1. No consolidation. This document has been electronically signed by: Gabriel Rice MD on 04/13/2025 18:17:39 Dictated By: Gabriel Rice MD Signed By: Electronically signed by Gabriel Rice MD 04/13/25 1819 I independently interpreted this EKG and am in agreement with the below findings: Vent. Rate: 57 BPM Atrial Rate: 57 BPM P-R Int: 162 ms QRS Dur: 74 ms QT Int: 388 ms P-R-T Axes: 67 58 51 degrees QTcB Int: 377 ms Sinus bradycardia Otherwise normal ECG No previous ECGs available DD/ 1618 Radiology Impression Discussion of test interpretation with radiology: I have reviewed the radiologist's reading. Independent Historian Clinical information obtained from an independent historian. History obtained from or confirmed by: Spouse (Patient's provided additional history and confirmed the history provided by the patient.) and EMS (EMS provided additional history and confirmed the history provided by the patient.) Discharge Plan Discharge Clinical Impression: Vasovagal syncope Patient Disposition: Home, Self-Care Instructions: Syncope (DC) Additional Instructions: Follow up with your primary care provider. Return to the emergency department immediately if your symptoms worsen or if you develop any numbness, tingling, dizziness, shortness of breath, difficulty breathing, chest pain, blurry vision, loss of vision, nausea, vomiting, abdominal pain, fever, chills, back pain, or any other complaints. Please see the information below about our Patient Portal. If you are not yet enrolled in the [facility] Patient Portal, you will receive an enrollment email invitation following your visit to any [facility] setting. You may also self-enroll in the Patient Portal by visiting our website: [email or web address] The following information is required to access the Patient Portal: - Your [facility] Medical Record Number - Your personal home email address (must match what is in your electronic medical record, Registration staff can assist with this) - Name - Date of Capabilities of the Patient Portal: - Message some providers - View upcoming appointments - Access your health summary, medical history, and visit history - View current conditions and allergies - View procedure and lab results - View your medications, including guidelines, side effects, and precautions - Complete pre-appointment questionnaires requested by your provider - Ready summary reports of your office visits and procedures To access the Patient Portal Mobile [employer], follow these directions: - Search [employer] in the [employer] Store or [employer] Store - Download the [facility] - Search for [facility] - Enter your login/password Prescriptions: No Action ascorbic acid (vitamin C) 500 mg capsule PO multivitamin Tablet 1 tab PO DAILY cholecalciferol (vitamin D3) 25 mcg (1,000 unit) capsule 25 mcg PO DAILY Referrals: Mari Juarez MD [Primary Care Provider, Internal Medicine] Interventions: ED Discharge Assessment Last Done: 04/13/25 17:49 Discharge Date/Time: 04/13/25 17:50 Print Language: Bangladeshi
--- NOTE | 2025-04-13 16:04 | ECG_ITS ---
Test Reason : SYNCOPE Blood Pressure : */* mmHG Vent. Rate : 57 BPM Atrial Rate : 57 BPM P-R Int : 162 ms QRS Dur : 74 ms QT Int : 388 ms P-R-T Axes : 67 58 51 degrees QTcB Int : 377 ms Sinus bradycardia Otherwise normal ECG No previous ECGs available Referred By: Ambar Rosales Electronically Signed By: Heladio Pavon
[2025-04-13] MEDS: 0.9 % Sodium Chloride 1,000 ML 999 ML IV (16:27)
[2025-04-13 16:29] VITALS: BP 116/56; PULSE 61
[2025-04-13 16:30] VITALS: BP 128/76; PULSE 74
[2025-04-13 16:31] VITALS: BP 117/76; PULSE 74
[2025-04-13 16:32] VITALS: BP 117/76; PULSE 71; RESP 16; TEMP 36.7; O2SAT 100
[2025-04-13 16:32] LABS: MANUAL DIFF FLAG NO
[2025-04-13 16:38] LABS: Basophils Absolute Auto 0.1 X10*3/uL (0.0-0.2); Basophils Percent Auto 0.6 % (0-2); Eosinophils Absolute Auto 0.1 X10*3/uL (0.0-0.4); Eosinophils Percent Auto 1.3 % (0-4); Hematocrit 35.3 % (37.0-47.0); Hemoglobin 12.1 g/dl (12.0-16.0); INTERNATIONAL NORM RATIO 1.1 (0.9-1.1); Imm Gran Abs Auto 0.02 X10*3/uL (0.00-0.03); Imm Gran Pct Auto 0.2 % (0.0-0.4); Lymphocytes Absolute Auto 1.9 X10*3/uL (1.2-4.9); Lymphocytes Percent Auto 22.5 % (20-40); Mean Corpuscular HGB Conc 34.3 g/dl (31.0-35.0); Mean Corpuscular Hemoglobin 31.8 pg (27.0-33.0); Mean Corpuscular Volume 92.7 fL (80.0-98.0); Mean Platelet Volume 9.2 fL (9.4-12.3); Monocytes Absolute Auto 0.5 X10*3/uL (0.1-1.2); Monocytes Percent Auto 5.8 % (2-11); Neutrophils Absolute Auto 5.8 x10*3/uL (2.0-8.3); Neutrophils Percent Auto 69.6 % (45-73); Platelet Count 208 X10*3/uL (160-400); Prothrombin Time 12.6 SEC (10.9-12.4); Red Blood Count 3.81 X10*6/uL (4.20-5.50); Red Cell Distribution Width 12.6 % (11.0-16.0); White Blood Count 8.3 X10*3/uL (4.8-10.8)
[2025-04-13 16:47] LABS: Alanine Aminotransferase 17 U/L (0-31); Albumin Level 4.3 g/dL (3.5-5.0); Alkaline Phosphatase 32 U/L (39-117); Anion Gap 12 (12-20); Aspartate Amino Transferase 21 U/L (5-31); Bilirubin Total 0.8 mg/dL (0.0-1.0); Blood Urea Nitrogen 17 mg/dL (9-16); Calcium 9.1 mg/dL (8.4-10.2); Carbon Dioxide 25 mmol/L (22-29); Chloride 106 mmol/L (96-108); Creatinine Clr Calc Pharmacy 84.9; Estimated Glomerular Filt Rate > 60; Glucose Random 97 mg/dL (60-115); Magnesium 1.9 mg/dL (1.6-2.6); Potassium 3.7 mmol/L (3.3-5.1); Sodium 139 mmol/L (135-145); Total Protein 6.6 g/dL (6.5-8.0)
[2025-04-13 16:56] LABS: Troponin-I High Sensitivity < 2.7 ng/L (<3.5-17.0)
[2025-04-13 17:11] LABS: Influenza A PCR NEGATIVE (Negative); Influenza B PCR NEGATIVE (Negative); Resp Syncy Virus RNA Qual PCR NEGATIVE (Negative); SARS COV2 PCR INHOUSE NEGATIVE (Negative)
[2025-04-13 17:14] LABS: HCG Quantitative < 2 mIU/mL
[2025-04-13 17:49] VITALS: BP 117/76; PULSE 71; RESP 16; TEMP 36.7; O2SAT 100
[2025-04-13 17:49] LABS: Appearance Urine Clear; Color Urine Yellow; Glucose Urine UA Negative (Negative); Leukocyte Esterase Urine Negative (Negative); Nitrite Urine Negative (Negative); PH 7.5 (5.0-9.0); Urine Blood Negative (Negative); Urine Ketones Negative (Negative); Urine Protein Negative (Neg-Trace)
== END 2025-04-13 17:50 | disposition home or self-care (01) ==
PROVIDERS: Physician Assistant Medical; Emergency Provider Emergency Medicine; PCP Internal Medicine
DX: R55 Syncope and collapse (principal); R00.1 Bradycardia, unspecified; R06.02 Shortness of breath; Z79.899 Other long term (current) drug therapy; Z03.818 Encounter for observation for suspected exposure to other biological agents ruled out; Z87.891 Personal history of nicotine dependence
CPT/HCPCS: 0241U; 71046; 80053; 81003; 83735; 84484; 84702; 85025; 85610; 93005; 96360; 99284

== ENCOUNTER → 2025-04-13 16:04 | Outpatient (BNV) | payer OTHER, SELFPAY | PROVIDERS: Emergency Provider Emergency Medicine; PCP Internal Medicine; Visit Provider Internal Medicine Cardiovascular Disease | DX: R00.1 Bradycardia, unspecified (principal) | CPT/HCPCS: 93010 ==

== ENCOUNTER → 2025-04-13 16:04 | Outpatient (BNV) | payer OTHER, SELFPAY | PROVIDERS: Emergency Provider Emergency Medicine; PCP Internal Medicine; Visit Provider Radiology Diagnostic Radiology | DX: N60.92 Unspecified benign mammary dysplasia of left breast (principal) | CPT/HCPCS: 19281 ==

== ENCOUNTER 2025-04-18 10:51 | Outpatient (REF) | payer OTHER, SELFPAY ==
--- NOTE | ~2025-04-18 | MM_ITS ---
EXAMINATION: MM MAMMOGRAM GUIDED RFID LOCALIZATION BREAST, LEFT CLINICAL INFORMATION: [facility] left breast 11:00 axis. COMPARISON: Prior recent imaging, including initial RF ID tag attempt 04/13/2025. TECHNIQUE NEEDLE LOC: Proper informed consent is obtained from the patient after discussion of the procedure, potential risks and complications, and alternatives including declining the procedure today. Patient was given an opportunity for questions. The patient appeared to understand. The patient consented to the procedure and signed the consent form. GUIDANCE: Digital mammography. APPROACH: Cranio-caudal. TARGET: Hourglass shaped biopsy clip. ANESTHESIA: carbonated lidocaine 1%: 4 mL. LOCALIZATION SYSTEM: -virocyt LOCallizer Wire-Free Guidance System with 12g needle applicator. -Length: 7 cm. -RADIOFREQUENCY TAG: ID # [id number] DERMATOTOMY: Single 1 mm skin-manan dermatotomy performed. RF Tag ID confirmed with LOCalizer Guidance System prior to placement. The skin is prepped and local anesthesia administered. The needle is positioned and RFID tag deployed. Of note, on the left ML view during placement, the biopsy clip was completely obscured by the needle, necessitating an estimation of clip positioning, and subsequent deployment of the RF tag utilizing that estimation. Final images demonstrate the LOCalizer RF tag to reside approximately 1.7 cm posteroinferior to the biopsy clip. The patient tolerated the procedure well and had no immediate complications. Dressing placed and home instructions reviewed. MM/MM RF Tag device LT IMPRESSION: -Status post left breast RFID localization. -Final position of the RF tag was approximately 1.7 cm posteroinferior to the biopsy clip. Dr. Seo was made aware of the final positioning of the RF tag via secure text, at 12:36 PM, 04/18/2025. Electronically signed by: Daryl Pandya MD 04/18/2025 12:42 PM EDT
[2025-04-18] MEDS: Lidocaine HCl 1 % 20 ML VIAL 4 ML SUBCUT (11:57)
[2025-04-18] MEDS: Sodium Bicarbonate 8.4% 50 MEQ/50 ML VIAL SUBCUT (11:59)
== END 2025-04-18 10:52 | disposition home or self-care (01) ==
LOC: HO.MAMMO 10:51
PROVIDERS: PCP Internal Medicine; Visit Provider Surgery
DX: N60.92 Unspecified benign mammary dysplasia of left breast (principal)
CPT/HCPCS: 19281; C1819; J2003

== ENCOUNTER → 2025-04-18 11:00 | Outpatient (BNV) | payer OTHER, SELFPAY | PROVIDERS: PCP Internal Medicine; Visit Provider Radiology Diagnostic Radiology | DX: N60.82 Other benign mammary dysplasias of left breast (principal) | CPT/HCPCS: 19281 ==

== ENCOUNTER 2025-04-19 07:06 | Day surgery (SDC) | payer OTHER, SELFPAY ==
[2025-04-17 12:37] VITALS: BMI 20.8
--- NOTE | 2025-04-18 09:47 | HO.ANESPROP2 ---
Documented by User: Liliana Langston NP 04/18/25 09:49 HPI - Anesthesia Eval Consult details Narrative: 40yo F for Left Breast Lumpectomy w/LOCalizer Pt vagaled during chip insertion procedure in radiology and tx'd to ED [facility] Active Problems Active Problems: All Active Problems Atypical lobular hyperplasia of left breast (Acute) Abnormal magnetic resonance imaging of left breast (Acute) FH: breast cancer (Acute) At high risk for breast cancer (Acute) Abnormal magnetic resonance imaging of right breast (Acute) Uterine myoma (Acute) Hot flashes (Acute) Premature menopause (Acute) Vitamin D deficiency (Acute) Annual physical exam (Acute) Dysplastic nevi (Acute) Left breast mass (Acute) Myoma (Acute) Well woman exam (Acute) Dysmenorrhea (Acute) Normal Pap smear (Acute) Calcific tendinitis (Acute) Past Medical History Medical History Personal history of cardiac murmur Vitamin D deficiency FH: breast cancer Left breast mass Dysmenorrhea Normal Pap smear Calcific tendinitis Family History Family History Mother Breast cancer, Onset Age: 28 Father Asthma Substance use disorder Maternal Grandmother Breast cancer, Onset Age: 74 Paternal Aunt Breast cancer, Onset Age: 60 Paternal Uncle Substance use disorder Paternal Grandfather Substance use disorder Surgical History Surgical History History of endometrial ablation (2015) H/O hernia repair Social History Social History Household Members Other:: lives with partner, trying to quit smoking, cleans exercise, 2 boys (18,13) Housing: Apartment Alcohol intake: never Patient Tobacco Use Status: Current everyday Tobacco user Tobacco use type: Cigarette Cigarettes Per Day: 6 Years Smoked: 23 e-Cigarette/Vaping Use: Never Used Use of substances other than those prescribed or required for medical reasons: Yes Substance Use Type Other:: smoked daily-last used 04/18 Are you DNR?: No Advance Directives: No Advance Directives Information Provided: Yes service: No Current occupational status: employed Cognitive needs: No Hearing needs: No Vision needs: No Meds Allergies Allergy/AdvReac Type Severity Reaction Status Date / Time sulfamethoxazole (From AdvReac Intermediate Vomiting Verified 04/19/25 07:18 Bactrim) trimethoprim (From Bactrim) AdvReac Intermediate Vomiting Verified 04/19/25 07:18 lorazepam (From Ativan) AdvReac Mild Vomiting Verified 04/19/25 07:18 Home Medications ?Medication ?Instructions ?Recorded ?Confirmed ?Last Taken ?Type ascorbic acid (vitamin C) 500 mg mg PO 07/27/23 01/20/25 Unknown History capsule cholecalciferol (vitamin D3) 25 25 mcg PO DAILY 07/27/23 01/20/25 Unknown History mcg (1,000 unit) capsule multivitamin 1 tab PO DAILY 07/27/23 01/20/25 Unknown History turmeric 04/19/25 04/17/25 History vitamin B complex 1 tab PO DAILY 04/19/25 04/19/25 Unknown History zinc 04/19/25 04/19/25 Unknown History Exam Height,Weight and Vital Signs: Height 5 ft 4 in Weight 54.885 kg Pertinent Lab Results Pertinent Lab Results: Laboratory Tests 04/13/25 16:24 WBC 8.3 Hgb 12.1 Hct 35.3 L Plt Count 208 Sodium 139 Potassium 3.7 Chloride 106 Carbon Dioxide 25 BUN 17 H Creatinine 0.76 Narrative Narrative: EKG 03/2025 Vent. Rate : 57 BPM Atrial Rate : 57 BPM P-R Int : 162 ms QRS Dur : 74 ms QT Int : 388 ms P-R-T Axes : 67 58 51 degrees QTcB Int : 377 ms Sinus bradycardia Otherwise normal ECG No previous ECGs available Assessment and Plan Assessment Anesthesia Assessment: Chart Reviewed Documented by User: Alissa Salmeron MD 04/19/25 08:24 [facility] Past Medical History Medical History Personal history of cardiac murmur Vitamin D deficiency FH: breast cancer Left breast mass Dysmenorrhea Normal Pap smear Calcific tendinitis Family History Family History Mother Breast cancer, Onset Age: 28 Father Asthma Substance use disorder Maternal Grandmother Breast cancer, Onset Age: 74 Paternal Aunt Breast cancer, Onset Age: 60 Paternal Uncle Substance use disorder Paternal Grandfather Substance use disorder Family history of problems with anesthesia: No Surgical History Surgical History History of endometrial ablation (2015) H/O hernia repair History of Problems with Anesthesia: No Social History Social History Household Members Other:: lives with partner, trying to quit smoking, cleans exercise, 2 boys (18,13) Housing: Apartment Alcohol intake: never Patient Tobacco Use Status: Current everyday Tobacco user Tobacco use type: Cigarette Cigarettes Per Day: 6 Years Smoked: 23 e-Cigarette/Vaping Use: Never Used Use of substances other than those prescribed or required for medical reasons: Yes Substance Use Type Other:: smoked daily-last used 04/18 Are you DNR?: No Advance Directives: No Advance Directives Information Provided: Yes service: No Current occupational status: employed Cognitive needs: No Hearing needs: No Vision needs: No Meds Allergies Allergy/AdvReac Type Severity Reaction Status Date / Time sulfamethoxazole (From AdvReac Intermediate Vomiting Verified 04/19/25 07:18 Bactrim) trimethoprim (From Bactrim) AdvReac Intermediate Vomiting Verified 04/19/25 07:18 lorazepam (From Ativan) AdvReac Mild Vomiting Verified 04/19/25 07:18 Home Medications ?Medication ?Instructions ?Recorded ?Confirmed ?Last Taken ?Type ascorbic acid (vitamin C) 500 mg mg PO 07/27/23 01/20/25 Unknown History capsule cholecalciferol (vitamin D3) 25 25 mcg PO DAILY 07/27/23 01/20/25 Unknown History mcg (1,000 unit) capsule multivitamin 1 tab PO DAILY 07/27/23 01/20/25 Unknown History turmeric 06/25/25 06/23/25 History vitamin B complex 1 tab PO DAILY 04/19/25 04/19/25 Unknown History zinc 04/19/25 04/19/25 Unknown History Exam Airway Mallampati Class: II TM Dist: >3cm Neck ROM: Full Heart: rrr Lungs: cta Assessment and Plan Assessment Anesthesia Assessment: Anesthesia Plan Discussed Final Anesthetic Review Family History of Problems with Anesthesia: No History of Problems with Anesthesia: No NPO: Yes ASA Class: II Final Preanesthetic Review: No Changes in Pt Med Stat, Meds/Allgs Chart Reviewed, Consent Obtained/Reviewed and Anes Risks/Benef Reviewed Patient Risk: Low Procedure Risk: Low Anesthetic Plan Anesthetic Plan: GA Disposition: Standard PACU
--- NOTE | ~2025-04-19 | MM_ITS ---
Single left breast specimen radiograph demonstrates the tag and the marker clip within the specimen. Electronically signed by: Zoie Morales DO 04/19/2025 09:53 AM EDT
[2025-04-19 07:27] LABS: UPreg QC Valid YES; Urine Pregnancy NEGATIVE (NEGATIVE)
[2025-04-19 07:31] VITALS: BP 101/62; PULSE 57; RESP 15; TEMP 36.4; O2SAT 99; BMI 20.8
--- NOTE | 2025-04-19 08:39 | P.HPSUR_ITS ---
Pre-Procedural Eval Section A - 24 Hr Update-Section A only Date of Service: 04/19/25 The patient is an INPATIENT: No Changes since office visit: Yes Patient answered all questions; No Cold of Flu in the past 2 weeks and No Changes in Medication The patient has been examined within 24 hours of the surgical procedure. The History & Physical has been completed within 30 days and I have reviewed it.: No Section B - Complete if H&P > 30 days Chief Complaint: Other specified personal risk factors, not elsewhe Details of Present Illness: no changes Relevant Family History (Specify if Yes): No Relevant Social History: None Present Medications: see Short Stay Collaborative assessment Medical History: No relevant PMH History of Previous Operations: No relevant previous surgery Allergies: Allergies Allergy/AdvReac Type Severity Reaction Status Date / Time sulfamethoxazole (From AdvReac Intermediate Vomiting Verified 04/19/25 07:18 Bactrim) trimethoprim (From Bactrim) AdvReac Intermediate Vomiting Verified 04/19/25 0 7:18 lorazepam (From Ativan) AdvReac Mild Vomiting Verified 04/19/25 07:18 Review of Systems Sugical H&P ROS: Negative: Constitution, Cardiovascular, Respiratory, Neurological, Psychiatric, Hem-Onc, Allergic/Immunologic, Gastrointestinal, Genitourinary, Musculoskeletal, Integumentary, Endocrine and Eyes/Ears/Nose/Throat Exam Surgical H&P Exam: Normal: HEENT, Normal: Heart, Normal: Lungs, Normal: Extremities, Normal: Abdomen, Normal: Skin and Normal: Neurological Plan Diagnosis/Plan: Unchanged I have reviewed the history and physical and performed a pertinent physical examination on my patient. No changes have occurred unless specified. Time Spent With Patient Time: Total time managing care of this patient today ____ minutes.
--- NOTE | 2025-04-19 09:49 | P.OP_ITS ---
Operative Note Operative Note Date of Service: 04/19/25 Narrative: Preoperative diagnosis: Focal atypical lobular hyperplasia left breast Postoperative diagnosis: Same Procedure: Left breast lumpectomy with localizer Surgeon: Miguel Seo MD [facility] Coordinator: Navid Haider PA-C, Annette Cook, MS-3 Anesthesia: General LMA Indications for procedure: 40-year-old female patient considered high risk for breast cancer presenting with a recent MR guided biopsy which revealed an area of focal atypical lobular hyperplasia with pseudoangiomatous stromal hyperplasia. She presents today for wide excision of the ALH. Operative findings: Localizing clip and marking clip within the specimen x-ray. Gross pathology negative for mass. Specimen: Left breast lumpectomy Estimated blood loss: 2 mL Complications: None Procedure details: Patient was brought to the OR and placed in a supine position. After administering general anesthesia the patient's left breast was prepped with ChloraPrep and draped in a sterile fashion. A surgical time-out was called in consent confirmed. Patient received preoperative antibiotics and Venodyne boots were in place. Local anesthesia was infiltrated over the left breast in the 12 o'clock position. A curvilinear incision was then made along the margin of the areola at the 12 o'clock position and carried out through subcutaneous tissue. Superior and inferior skin flaps were then created with the electrocautery. Using the localizer device a core of tissue surrounding the localizer was then obtained using electrocautery to perform the superior, medial, lateral, inferior and posterior margins. The specimen was removed and m arked with a long suture at the lateral margin, short suture at the superior margin, and looped suture at the posterior margin. A specimen x-ray was then performed in the OR which confirmed the marking clip within the specimen as well as LOCalizer. The specimen was sent to pathology for gross examination of margins and these were felt to be adequate. Wounds were checked for hemostasis. Wounds were irrigated with saline solution and suctioned dry. Once hemostasis was assured the deep and superficial breast tissue was reapproximated using interrupted 3-0 Polysorb sutures. Dermis was reapproximated using interrupted 3-0 Polysorb sutures. Skin was then closed using a running subcuticular 4-0 Polysorb suture. Steri-Strips, 2 x 2 gauze and Tegaderm were then applied. The patient tolerated the procedure well. Sponge, instrument, and needle counts reported as correct. The patient was transferred to PACU in stable condition.
[2025-04-19 10:01] VITALS: BP 123/64; PULSE 63; RESP 16; TEMP 36.6; O2SAT 100
[2025-04-19 10:05] VITALS: BP 108/55; PULSE 59; RESP 16; O2SAT 100
[2025-04-19 10:10] VITALS: BP 113/65; PULSE 61; RESP 16; O2SAT 100
[2025-04-19 10:15] VITALS: BP 119/68; PULSE 54; RESP 16; O2SAT 99
[2025-04-19 10:30] VITALS: BP 113/62; PULSE 55; RESP 16; TEMP 36.6; O2SAT 100
== END 2025-04-19 11:07 | disposition home or self-care (01) ==
PROVIDERS: PCP Internal Medicine; Visit Provider Surgery
DX: D05.02 Lobular carcinoma in situ of left breast (principal); N60.82 Other benign mammary dysplasias of left breast; Z80.3 Family history of malignant neoplasm of breast; E55.9 Vitamin D deficiency, unspecified; Z88.2 Allergy status to sulfonamides; Z88.8 Allergy status to other drugs, medicaments and biological substances; Z98.890 Other specified postprocedural states; Z87.891 Personal history of nicotine dependence
CPT/HCPCS: 19301; 81025; 88307; 88341; 88342; 88360; J0690; J1100; J2003; J2250; J2405; J2704; J2765; J3010

== ENCOUNTER → 2025-04-19 07:06 | Outpatient (BNV) | payer OTHER, SELFPAY | PROVIDERS: PCP Internal Medicine; Visit Provider Surgery | DX: N60.82 Other benign mammary dysplasias of left breast (principal) | CPT/HCPCS: 19301 ==

== ENCOUNTER 2025-05-02 07:22 | Outpatient (REF) | payer OTHER, SELFPAY ==
[2025-05-02 11:03] LABS: MANUAL DIFF FLAG NO
[2025-05-02 11:08] LABS: Hematocrit 40.3 % (37.0-47.0); Hemoglobin 13.4 g/dl (12.0-16.0); Imm Gran Abs Auto 0.02 X10*3/uL (0.00-0.03); Imm Gran Pct Auto 0.3 % (0.0-0.4); Lymphocytes Absolute Auto 2.0 X10*3/uL (1.2-4.9); Mean Corpuscular HGB Conc 33.3 g/dl (31.0-35.0); Mean Corpuscular Hemoglobin 31.2 pg (27.0-33.0); Mean Corpuscular Volume 93.7 fL (80.0-98.0); NRBC Abs Auto 0.000 X10*3/uL (0.0-0.012); NRBC Pct Auto 0.0 /100WBC (0.0-0.2); Platelet Count 269 X10*3/uL (160-400); Red Blood Count 4.30 X10*6/uL (4.20-5.50); White Blood Count 7.2 X10*3/uL (4.8-10.8)
[2025-05-02 11:09] LABS: Appearance Urine Turbid; Glucose Urine UA Negative (Negative); PH 5.5 (5.0-9.0); Specific Gravity - Urine 1.025 (1.005-1.025); UMIC TRIGGER UA YES
[2025-05-02 11:51] LABS: Alanine Aminotransferase 19 U/L (0-31); Albumin Level 4.5 g/dL (3.5-5.0); Alkaline Phosphatase 35 U/L (39-117); Anion Gap 11 (12-20); Aspartate Amino Transferase 18 U/L (5-31); Blood Urea Nitrogen 17 mg/dL (9-16); Calcium 9.0 mg/dL (8.4-10.2); Carbon Dioxide 24 mmol/L (22-29); Chloride 107 mmol/L (96-108); Cholesterol 224 mg/dL (<200); Estimated Glomerular Filt Rate > 60; HDL Cholesterol 65 mg/dL (>40); Potassium 4.1 mmol/L (3.3-5.1); Sodium 138 mmol/L (135-145); Total Protein 7.3 g/dL (6.5-8.0); Triglycerides 93 mg/dL (<150)
== END 2025-05-02 07:23 | disposition home or self-care (01) ==
LOC: HO.HMGCLDS 07:22
PROVIDERS: PCP Internal Medicine; Visit Provider Internal Medicine
DX: Z00.00 Encounter for general adult medical examination without abnormal findings (principal)
CPT/HCPCS: 36415; 80053; 80061; 81001; 82306; 85025

== ENCOUNTER 2025-05-08 10:37 | Outpatient (AMB) | payer OTHER, SELFPAY ==
--- NOTE | 2025-05-08 10:39 | A.OFFVIS_ITS ---
Vital Signs 3 05/08/25 10:43 Height 5 ft 4 in Weight 132 lb BMI 22.7 BP 126/66 Blood Pressure Location Lt brachial Position Sitting Pulse 86 Intake Visit Reasons: S/P Lt. brst lumpectomy w/localizer Intake Note: Patient is seen in office for post op assessment post Left breast lumpectomy. Pt c/o: denies any concerns post surgery surgery:04/19/25 Head Sulfide Operator Required: No Accompanied by: Spouse Allergies sulfamethoxazole (From Bactrim) Adverse Reaction (Intermediate, Verified 05/08/25 10:43) Vomiting trimethoprim (From Bactrim) Adverse Reaction (Intermediate, Verified 05/08/25 10:43) Vomiting lorazepam (From Ativan) Adverse Reaction (Mild, Verified 05/08/25 10:43) Vomiting Medication List - Last Reconciled 05/08/25 by Miguel Seo MD ascorbic acid (vitamin C) mg PO cholecalciferol (vitamin D3) 25 mcg PO DAILY multivitamin 1 tab PO DAILY oxycodone 5 mg PO Q6H PRN [turmeric ] vitamin B complex 1 tab PO DAILY [zinc ] HPI Comments Details: 40-year-old female patient returning following her recent MR guided core biopsy of the left breast. She has a strong family history of breast cancer including her mother who developed breast cancer at the age of 28 and her maternal grandmother who developed breast cancer at the age of 74. She also has a paternal aunt who developed breast cancer at the age of 67. The patient has a previous history of an abnormal breast MRI which required an MR guided biopsy performed last year at [facility] in [place] pathology revealed a nodular area of adenosis, microcysts, dilated ducts, and ductal hyperplasia with no atypia. Fibroadenoma it was change and a background of ductal hyperplasia without atypia was also identified. She underwent genetic testing on 05/15/2023 which revealed no clinically significant mutations. 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 Her breast cancer risk score was calculated at 31.6%. She again had a suspicious finding by MRI in the right breast underwent MR guided biopsy at [facility] on 06/06/2024. Subsequent pathology revealed benign breast tissue with adenosis and dense stromal fibrosis. Six-month follow-up MRI was recommended and [place] [facility] [place] revealed a new 7 x 6 x 7 mm oval enhancing mass in the upper central slightly inner breast 2-3 cm from the nipple felt to be suspicious and targeted ultrasound was recommended. MR guided biopsy performed on 03/16/2025 revealed focal atypical lobular hyperplasia, pseudoangiomatous stromal hyperplasia, collagenous spherulosis and columnar cell changes; negative for malignancy. 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 The patient was informed of the pathology and given a copy of the pathology results. [facility] Medical History Personal history of cardiac murmur Vitamin D deficiency FH: breast cancer Left breast mass Dysmenorrhea Normal Pap smear Calcific tendinitis Surgical History History of lumpectomy of left breast (04/19/25) History of endometrial ablation (2015) H/O hernia repair Family History Mother Breast cancer, Onset Age: 28 Father Asthma Substance use disorder Maternal Grandmother Breast cancer, Onset Age: 74 Paternal Aunt Breast cancer, Onset Age: 60 Paternal Uncle Substance use disorder Paternal Grandfather Substance use disorder Social History Household Members Other:: lives with partner, trying to quit smoking, cleans exercise, 2 boys (18,13) Housing: Apartment Alcohol intake: never Patient Tobacco Use Status: Current everyday Tobacco user Tobacco use type: Cigarette Cigarettes Per Day: 6 Years Smoked: 23 e-Cigarette/Vaping Use: Never Used service: No Current occupational status: employed Cognitive needs: No Hearing needs: No Vision needs: No Female Reproductive History Menstrual Age of Menarche: 13 Review of Systems Const All systems reviewed & are unremarkable except as noted in HPI and below Physical Exam Vital Signs: Last Vital Signs Pulse 86 05/08/25 10:43 BP 126/66 05/08/25 10:43 BMI result Body Mass Index 22.7 Const General: comfortable Nutritional Appearance: well nourished Chest Other: Well-healed incision in the left breast in a circumareolar location at the 12 o'clock position with no underlying hematoma or seroma. Chest/axillae images: 2 1. Incision left breast, clean, dry, and intact. 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 Her breast cancer risk score was calculated at 31.6%. 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 I recommended the patient be evaluated by Medical Oncology for risk reduction strategies. She expressed understanding and agrees with the plan. She will return in 1 month for follow-up examination. She is welcome to call sooner for any new concerns. 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
[2025-05-08 10:43] VITALS: BP 126/66; PULSE 86; BMI 22.7
== END 2025-05-08 11:00 | disposition home or self-care (01) ==
LOC: HO.HGS 10:38
PROVIDERS: PCP Internal Medicine; Visit Provider Surgery
DX: N60.92 Unspecified benign mammary dysplasia of left breast (principal); D05.02 Lobular carcinoma in situ of left breast
CPT/HCPCS: 99024

== ENCOUNTER → 2025-05-08 10:37 | Outpatient (BNVA) | payer OTHER, SELFPAY | PROVIDERS: PCP Internal Medicine; Visit Provider Surgery | DX: Z71.2 Person consulting for explanation of examination or test findings (principal); N60.92 Unspecified benign mammary dysplasia of left breast; D05.02 Lobular carcinoma in situ of left breast | CPT/HCPCS: 99212 ==

== ENCOUNTER → 2025-05-11 08:24 | Outpatient (BNV) | payer OTHER, SELFPAY | PROVIDERS: PCP Internal Medicine; Visit Provider Internal Medicine Medical Oncology | DX: N60.91 Unspecified benign mammary dysplasia of right breast (principal) | CPT/HCPCS: 99213 ==

== ENCOUNTER 2025-06-09 11:25 | Outpatient (AMB) | payer OTHER, SELFPAY ==
--- NOTE | 2025-06-09 11:26 | MHC.OFFVIS ---
Vital Signs 06/09/25 11:31 Height 5 ft 4 in Weight 121 lb 4.068 oz BMI 20.8 Intake Visit Reasons: 1MTH S/P Lt. brst lumpectomy w/localizer Intake Note: Patient is seen in office for one month follow up visit, post left breast lumpectomy. Pt c/o: denies any concerns Environmental Research Project Manager Required: No Accompanied by: Self / Same As Patient Allergies shellfish derived (shellfish) Allergy (Verified 06/09/25 11:32) Hives sulfamethoxazole (From Bactrim) Adverse Reaction (Intermediate, Verified 06/09/25 11:32) Vomiting trimethoprim (From Bactrim) Adverse Reaction (Intermediate, Verified 06/09/25 11:32) Vomiting lorazepam (From Ativan) Adverse Reaction (Mild, Verified 06/09/25 11:32) Vomiting Medication List - Last Reconciled 06/12/25 by Miguel Seo MD ascorbic acid (vitamin C) 500 mg PO DAILY cholecalciferol (vitamin D3) 25 mcg PO DAILY multivitamin 1 tab PO DAILY [turmeric ] vitamin B complex 1 tab PO DAILY [zinc ] HPI Comments Details: 40-year-old female patient with a strong family history of breast cancer including her mother who developed breast cancer at the age of 28 and her maternal grandmother also developed breast cancer at the age of 74. History also includes a paternal aunt with breast cancer the age of 67. She recently underwent a lumpectomy following an MR guided biopsy of 03/16/2025 which revealed atypical lobular hyperplasia. 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 She was subsequently evaluated by Dr. Connelly who discussed risk reduction with tamoxifen or AI. The patient has declined any additional therapy at this time. She wishes to continue with the high-risk screening protocol including twice yearly clinical breast examinations, yearly mammogram alternating in 6 months with yearly breast MRI. 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 Her breast cancer risk score was calculated at 31.6%. She is due for mammogram currently however given all the biopsies for the past several months this will be held to allow further healing. She reports feeling well with no particular problems since her last visit. She feels her incisions have healed nicely. [facility] Medical History Personal history of cardiac murmur Vitamin D deficiency FH: breast cancer Left breast mass Dysmenorrhea Normal Pap smear Calcific tendinitis Surgical History History of lumpectomy of left breast (04/19/25) History of endometrial ablation (2016) H/O hernia repair Family History Mother Breast cancer, Onset Age: 28 Father Asthma Substance use disorder Maternal Grandmother Breast cancer, Onset Age: 74 Paternal Aunt Breast cancer, Onset Age: 60 Paternal Uncle Substance use disorder Paternal Grandfather Substance use disorder Social History Household Members: Spouse and Children Household Members Other:: lives with partner, trying to quit smoking, cleans exercise, 2 boys (18,13) Housing: Apartment Alcohol intake: never Patient Tobacco Use Status: Current everyday Tobacco user Tobacco use type: Cigarette Years Smoked: 23 e-Cigarette/Vaping Use: Never Used Substance Use Type: Marijuana service: No Current occupational status: employed Cognitive needs: No Hearing needs: No Vision needs: No Female Reproductive History Menstrual Age of Menarche: 13 Review of Systems Const All systems reviewed & are unremarkable except as noted in HPI and below Physical Exam Vital Signs: BMI result Body Mass Index 20.8 Const General: comfortable Nutritional Appearance: well nourished Chest Other: Left breast: Well-healed incision in the left breast in a circumareolar location at the 12 o'clock position with no underlying hematoma or seroma. No other palpable mass, skin change, nipple discharge or enlarged lymph node. Right breast: No skin change, nipple discharge, nipple retraction, palpable mass or enlarged lymph node. Chest/axillae images:  1. 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 Her breast cancer risk score was calculated at 31.6%. 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 I recommended follow-up examination in 6 months after which we will order her mammogram. She is welcome to call sooner for any new concerns. 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
--- OUTSIDE RECORDS SUMMARY | 2025-06-09 11:27 | XMS_ITS | Encounter Summary ---
Author Organization [facility] Address [address] [place] [address] Phone Care Team Providers Care Soccer Referee Name Role Phone Jack Junior MD Unavailable Aryan Arriaga MD Unavailable [phone] Dulce Maria Odom MD Unavailable [email or web address] Barbra Fitch MD Primary Care Provider Mari Juarez MD Primary Care Provider [phone] Encounter Details Date Type Department Care Team (Late st Contact Info) Description 10/01/2020 Procedure Pass [facility] - [address] [place] [address] Social History Tobacco Use Types Packs/Day Years Used Date Smoking Tobacco: Light Smoker Cigarettes 0.3 22.2 Started: 997; Last attempted to quit: 09/06/2019 Smokeless Tobacco: Never Alcohol Use Standard Drinks/Week Comments Yes 0 (1 standard drink = 0.6 oz pur e alcohol) monthly socailly Comments No Sex and Gender Information Value Date Recorded Sex Assigned at Female 11/05/2020 9:06 AM EST Legal Sex Female 9:15 PM EDT Gender Identity Female 11/05/2020 9:06 AM EST Sexual Orientation Straight 11/05/2020 9: 06 AM EST 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 Not on file Not on file Not on file documented as of this encounter Plan of Treatment Not on file documented as of this encounter Visit Diagnoses Not on filedocumented in this encounter Additional Health Concerns Assessment Noted Time PHQ-2 Depression Total Score: 1 09/28/20 20 8:20 PM EST documented as of this encounter Care Teams Soccer Referee Relationship Specialty Start Date End Date Barbra Fitch MD [email or web address] PCP - General Family Medicine 09/30/19 11/16/22 Mari Juarez MD [facility] [place] [address] PCP - General Internal Medicine 11/17/22 Jack Junior MD [address] [place] [address] [email or web address] Historical LMR Provider 08/15/17 11/02/21 Aryan Arriaga MD [address] [place] [address] [address] [place] [address] Historical LMR Provider 08/15/17 11/02/21 Dulce Maria Odom MD Historical LMR Provider 08/15/17 2 documented as of this encounter Additional Source Comments The information contained in this document represents components of the legal health record. It is not the complete legal health record.[facility]
[2025-06-09 11:31] VITALS: BMI 20.8
== END 2025-06-09 11:40 | disposition home or self-care (01) ==
LOC: HO.HGS 11:26
PROVIDERS: PCP Internal Medicine; Visit Provider Surgery
DX: N60.92 Unspecified benign mammary dysplasia of left breast (principal); D05.02 Lobular carcinoma in situ of left breast
CPT/HCPCS: 99024

== ENCOUNTER → 2025-06-09 11:25 | Outpatient (BNVA) | payer OTHER, SELFPAY | PROVIDERS: PCP Internal Medicine; Visit Provider Surgery | DX: N60.92 Unspecified benign mammary dysplasia of left breast (principal); D05.02 Lobular carcinoma in situ of left breast; Z85.3 Personal history of malignant neoplasm of breast | CPT/HCPCS: 99212 ==

== ENCOUNTER 2025-07-14 10:15 | Outpatient (REF) | payer OTHER, SELFPAY ==
--- NOTE | ~2025-07-14 | MM_ITS ---
EXAMINATION: DXA BONE DENSITY AXIAL HISTORY: D05.02 LOBULAR CARCINOMA IN SITU LT BR TECHNIQUE: Syrinix Dual energy absorptiometry (DEXA) of the lumbar spine, total left hip, and femoral neck was performed. COMPARISON: There are no prior studies for comparison. FINDINGS: The bone mineral density of the lumbar spine is 1.030 g/cm2, corresponding to a T-score of -1.2, and a Z-score of -1.0. This is indicative of osteopenia. The bone mineral density of the left total hip is 0.769 g/cm2, corresponding to a T-score of -1.9, and a Z-score of -1.5. This is indicative of osteopenia. The bone mineral density of the left femoral neck is 0.747 g/cm2, corresponding to a T-score of -2.1, and a Z-score of -1.5. This is indicative of osteopenia. FRACTURE RISK: The FRAX index suggests a risk of major osteoporotic fracture of 3.0%, and of hip fracture 1.0%. MM/XR DEXA axial skeleton IMPRESSION: Based on bone mineral density, and according to World Health Organization (WHO) criteria, the diagnosis is consistent with osteopenia. Statistically, 68% of repeat scans fall within 1 SD (+/- 0.010 g/cm2 for AP spine L1-L4) and 1 SD (+/- 0.012 g/cm2 for femur total) FRAX is a trademark of the [employer]'s [employer] for Metabolic Bone Disease, a World Health Organization (WHO) Collaborating Center. Electronically signed by: Jefry Salcedo MD 07/14/2025 11:00 AM EDT
--- OUTSIDE RECORDS SUMMARY | 2025-07-14 10:50 | XMS_ITS | Encounter Summary ---
Author Organization [facility] Address [address] [place] [address] Phone Care Team Providers Care Nut Chopper Name Role Phone Jack Junior MD Unavailable Aryan Arriaga MD Unavailable [phone] Dulce Maria Odom MD Unavailable [email or web address] Barbra Fitch MD Primary Care Provider Mari Juarez MD Primary Care Provider [phone] Encounter Details Date Type Department Care Team (Late st Contact Info) Description 10/01/2020 Procedure Pass [facility] - [address] [place] [address] Social History Tobacco Use Types Packs/Day Years [...] documented as of this encounter Care Teams Nut Chopper Relationship Specialty Start Date End Date Barbra Fitch MD [email or web address] PCP - General Family Medicine 09/30/19 11/16/22 Mari Juarez MD [facility] [place] [address] PCP - General Internal Medicine 11/17/22 Jack Junior MD [address] [place] [address] [email or web address] Historical LMR Provider 08/15/17 11/02/21 Aryan Arriaga MD [address] [place] [address] [address] [place] [address] Historical LMR Provider 08/15/17 11/02/21 Dulce Maria Odom MD [email or web address] Historical LMR Provider 08/15/17 2 documented as of this encounter Additional Source Comments The information contained in this document represents components of the legal health record. It is not the complete legal health record.[facility]
--- OUTSIDE RECORDS SUMMARY | 2025-07-14 10:51 | XMS_ITS | Encounter Summary ---
Author Organization [facility] Address [address] [place] [address] Phone Care Team Providers Care Almond Paste Molder Name Role Phone Mari Juarez MD Primary Care Provider Encounter Details Date Type Department Care Team (Late st Contact Info) Description 11/16/2023 Procedure Pass [facility] - [address] [place] [address] Social History Tobacco Use Types Packs/Day Years [...] with a working camera? Not on file Comments No Sex and Gender Information Value [...] documented as of this encounter Care Teams Almond Paste Molder Relationship Specialty Start Date End Date Mari Juarez MD [facility] [place] [address] PCP - General Internal Medicine 11/17/22 documented as of this encounter Additional Source Comments The information contained in this document represents components of the legal health record. It is not the complete legal health record.[facility]
--- OUTSIDE RECORDS SUMMARY | 2025-07-14 10:51 | XMS_ITS | Clinical Summary ---
Author Organization [facility] Address [address] [place] [address] Phone Care Team Providers Care Nurses' Aide Name Role Phone Mari Juarez MD Primary Care Provider [phone] Allergies Active Allergy Reactions Criticality Noted Date Comments Sulfamethoxazole-Trimethoprim Nausea and/or Vomiting 02/24/2018 Venom-Honey Bee Swelling 06/23/2019 Lorazepam Nausea and/or Vomiting 04/03/2017 Shellfish Unknown 04/03/2017 Medications B-complex with vitamin C (VITAMIN B COMPLEX WITH C) Cap orally Active Medication-Free Text multivitamin Active cholecalciferol , vitamin D3, (VITAMIN D3) 400 unit capsule Take 2 capsules by mouth daily. Active EPINEPHrine 0.3 mg/0.3 mL auto-injector Inject 0.3 mL (0.3 mg total) into the muscle as needed for anaphylaxis. 1 Device 1 9 Active acetaminophen (TYLENOL) 325 mg tablet Take 2 tablets (650 mg total) by mouth every 4 (four) hours as needed for mild pain. 0 9 Active Active Problems Problem Noted Date Diagnosed [...] other issues. She understands and agrees. Immunizations Immunization Administration Dates Next Due HPV9 04/02/2020,09/30/2019,08/11/2019 Tdap [...] Used Date Smoking Tobacco: Former Cigarettes 0.3 28.3 0 06/23/1998 - 10/27/2022 Smokeless Tobacco: Never Tobacco Cessation:Counseling Given: Not Answered Comments:Smoked on and off as a light smoker for over 20 years. [...] file Not on file Not on file Last Filed Vital Signs Vital Sign Reading Time Taken Comments Blood Pressure 104/62 10/01/2020 11:24 AM EST Pulse 77 10/01/2020 11:24 AM EST Temperature 36.6 C (97.9 F) 10/01/2020 11:24 AM EST Respiratory Rate 14 09/12/2019 10:45 AM EST Oxygen Saturation 99% 10/01/2020 11:24 AM EST Inhaled Oxygen Concentration - - Weight 54.9 kg (121 lb) 10/01/2020 11:24 AM EST Height 162.6 cm (5' 4 ) 09/08/2019 10:39 AM EST Body Mass Index 20.77 09/08/2019 10:39 AM EST Plan of Treatment Health Maintenance Due Date Last Done Comments SMOKING Hx and SMOKELESS TOBACCO SCREENING 1998 HEPATITIS C SCREENING 2003 HIV ONE-TIME SCREENING (18-65 YEARS) 2003 PAP SMEAR 02/24/2021 02/24/2018, 0511/2017, 12/17/2015 DEPRESSION SCREENING 09/28/2021 09/28/2020 MAMMOGRAM 01/03/2025 01/04/2024, 10/27, 11/11/2021, Additional history exists INFLUENZA VACCINE (#1) 2025 COVID-19 VACCINE ( season) 2025 02/01/2021 Adult Td,Tdap Booster 12/23/2026 12/23/2016, 007 HEPATITIS A VACCINES Aged Out No long er eligible based on patient's age to complete this topic HIB VACCINES Aged Out No longer eligi ble based on patient's age to complete this topic MENINGOCOCCAL VACCINES (ACWY) Aged Out No longer eligible based on patient's age to complete this topic MENINGOCOCCAL VACCINES (B) Aged Out N o longer eligible based on patient's age to complete this topic PNEUMOCOCCAL VACCINES (0-49 years) Aged Out No longer eligible based on patient's age to complete this topic Medical Devices Implanted Type Area Film Booker Device Identifier Shelf Expiration Date Model / Serial / Lot Mesh Graft 4.5in Ventralight St Polypropylene Hernia Monofil Hydrogel Echo Ps Positioning System Repair Lutz - [id number] Implanted:Qty: 1 on 09/12/2019 by Ruth Mcgovern MD at [facility] Abdomen DAVOL 07/23/2021 [id number] / / [id number] Device Fixation 37mm Optifix Pdlla Smooth Head Hollow Core Angled Tip Absorbable 30 Fastner Bx/5ea - [id number] Implanted:Qty: 1 on 09/12/2019 by Ruth Mcgovern MD at [facility] Abdomen DAVOL 10/22/2020 [id number] / / [id number] Procedures Procedure Name Priority Date/Time Associated Diagnosis [...] be notified of the results and recommendations. us Mari Juarez MD IMG MG EXAMS Final Result * Pap Smear (02/24/2018 12:00 AM EDT) 02/24/2018 02/25/2018 2:1 9 PM EDT Narrative SEE NARRATIVE - 03/02/2018 10:32 AM EDT [address] [address] Sorting Machine Attendant: Yasmeen Wang MD EAP CONSULTANT Cytology Report FINAL DIAGNOSIS A. PAP SMEAR (SUREPATH) C: SPECIMEN ADEQUACY: Satisfactory for evaluation; transformation zone present. INTERPRETATION: NEGATIVE FOR INTRAEPITHELIAL LESION OR MALIGNANCY. Electronically Signed Out By: SHAYLEE Lerner(ASCP) The Pap test is a screening test primarily for squamous cancers and precursors and has associated false-negative and false-positive results. New technologies such as liquid-based preparations may decrease but will not eliminate all false-negative results. Regular sampling and follow-up of unexplained clinical signs and symptoms are recommended to minimize false negative results. PROCEDURES/ADDENDA HPV Testing (Requested) Ordered Date: 02/25/2018 HPV Test Negative for high risk human papillomavirus types 16, 18 and the Other high risk probe set (Includes 31, 33, 35, 39, 45, 51, 52, 56, 58, 59, 66, 68) by Ever cobase 4800 HR-HPV analysis. Clinical correlation is advised. This HPV test was performed at [facility], [address] [place] [address]. The accuracy and precision of this test has been verified in the Cytopathology laboratory of the [facility]. This test has not been cleared or approved by the U.S. Food and Drug Administration (FDA). CLINICAL HISTORY Date of Last Menstrual Period: N/A Treatment History: Other: Had endometrial ablation. Other Clinical Conditions: Screening Pap SPECIMEN SOURCE A: PAP SMEAR (SUREPATH) C Patient Name: FUNMILAYO HERNANDEZ : 1985 (Age: 32) Sex: F Institution: [facility] Location: [facility] Date of Collection: 02/24/2018 Date of Reported: 03/02/2018 10:32 Results to: Aryan Arriaga MD, BS us Aryan Arriaga MD CYTOLOGY ORDERABLES Final Res ult SEE NARRATIVE from Last 3 Months or Most Recently Relevant to Health Maintenance Insurance WELLSENSE NON NSPG PCP SILVER CLARITY CONNECTORCARE WELLSENSE NON NSPG PCP SILVER CLARITY CONNECTORCARE WELLSENSE NON NSPG PCP SILVER CLARITY CONNECTORCARE WELLSENSE NON NSPG PCP SILVER CLARITY CONNECTORCARE WELLSENSE NON NSPG PCP SILVER CLARITY CONNECTORCARE WELLSENSE NON NSPG PCP SILVER CLARITY CONNECTORCARE Advance Directives For more information, please contact: [phone] (9AM - 5PM [facility], Thursday-Thursday) Documents on File Type Date Recorded Patient Clinical Informatics Spec Expl anation Healthcare Proxy 09/13/2019 10:57 AM HEAL TH CARE PROXY * Full Code (Presumed) (Latest Code Status on File) Date Activated Date Inactivated Comments 09/12/2019 7:59 AM 09/12/2019 2:23 PM Care Teams Nurses' Aide Relationship Specialty Start Date End Date Mari Juarez MD [address] [facility] [place] [address] PCP - General Internal Medicine 11/17/22 Additional Source Comments The information contained in this document represents components of the legal health record. It is not the complete legal health record.[facility]
--- OUTSIDE RECORDS SUMMARY | 2025-07-14 10:51 | XMS_ITS | Encounter Summary ---
Author Organization [facility] Address [address] [place] [address] Phone Care Team Providers Care Commercial Portfolio Manager Name Role Phone Jack Junior MD Unavailable Aryan Arriaga MD Unavailable [phone] Dulce Maria Odom MD Unavailable [email or web address] Barbra Fitch MD Primary Care Provider Mari Juarez MD Primary Care Provider [phone] Encounter Details Date Type Department Care Team (Late st Contact Info) Description 08/26/2021 Procedure Pass [facility] - [address] [place] [address] Social History Tobacco Use Types Packs/Day Years [...] documented as of this encounter Care Teams Commercial Portfolio Manager Relationship Specialty Start Date End Date Barbra Fitch MD [facility] PCP - General Family Medicine 09/30/19 11/16/22 Mari Juarez MD [address] [facility] [place] [address] PCP - General Internal Medicine 11/17/22 Jack Junior MD [address] [place] [address] [email or web address] Historical LMR Provider 08/15/17 11/02/21 Aryan Arriaga MD [address] [place] [address] [address] [place] [address] Historical LMR Provider 08/15/17 11/02/21 Dulce Maria Odom MD [email or web address] Historical LMR Provider 08/15/17 2 documented as of this encounter Additional Source Comments The information contained in this document represents components of the legal health record. It is not the complete legal health record.[facility]
--- OUTSIDE RECORDS SUMMARY | 2025-07-14 10:51 | XMS_ITS | Encounter Summary ---
Author Organization [facility] Address [address] [place] [address] Phone Care Team Providers Care Patrol Deputy Sheriff Name Role Phone Mari Juarez MD Primary Care Provider Encounter Details Date Type Department Care Team (Late st Contact Info) Description 11/16/2023 Transcribe Orders Virtual Department [address] [place] [address] Mari Juarez MD [facility] [place] [address] Encounter for screening mammogram for malignant neoplasm [...] you interested in more education? Not on sivlana e 02/20/2023 Are you concerned about learning? [...] on file documented as of this encounter Results * [...] recommendations. Mari Juarez MD IMG MG EXAMS Final Result documented in this encounter Visit Diagnoses Diagnosis Encounter for screening mammogram for malignant neoplasm of breast- Primary Encounter for screening mammogram for malignant neoplasm of breast documented in this encounter Additional Health Concerns Assessment Noted Time PHQ-2 Depression Total Score: 1 09/28/20 20 8:20 PM EST documented as of this encounter Care Teams Patrol Deputy Sheriff Relationship Specialty Start Date End Date Mari Juarez MD [address] [place] [address] [place] [address] PCP - General Internal Medicine 11/17/22 documented as of this encounter Additional Source Comments The information contained in this document represents components of the legal health record. It is not the complete legal health record.[facility]
--- OUTSIDE RECORDS SUMMARY | 2025-07-14 10:51 | XMS_ITS | Encounter Summary ---
Author Organization [facility] Address [address] [place] [address] Phone Care Team Providers Care Home Health Clinical Supervisor Name Role Phone Barbra Fitch MD Primary Care Provider [phone] Mari Juarez MD Primary Care Provider [phone] Encounter Details Date Type Department Care Team (Late st Contact Info) Description 09/01/2022 Procedure Pass [address] [place] [address] Social History Tobacco Use Types Packs/Day Years Used Date Smoking Tobacco: Former Cigarettes 0.3 24.3 0 06/23/1998 - 10/27/2022 Smokeless Tobacco: Never Comments:Smoked on and off a s a light smoker for over 20 years. Alcohol Use Standard Drinks/Week Comments Not Currently 0 (1 standard drink = 0.6 oz pure alcohol) Very occassionally drink any alocohol Comments No Sex and Gender Information Value [...] documented as of this encounter Care Teams Home Health Clinical Supervisor Relationship Specialty Start Date End Date Barbra Fitch MD [email or web address] PCP - General Family Medicine 09/30/19 Mari Juarez MD [facility] [place] [address] PCP - General Internal Medicine 11/17/22 documented as of this encounter Additional Source Comments The information contained in this document represents components of the legal health record. It is not the complete legal health record.[facility]
--- OUTSIDE RECORDS SUMMARY | 2025-07-14 10:51 | XMS_ITS | Encounter Summary ---
Author Organization [facility] Address [address] [place] [address] Phone Care Team Providers Care Industrial Property Appraiser Name Role Phone Jack Junior MD Unavailable Aryan Arriaga MD Unavailable [phone] Dulce Maria Odom MD Unavailable [email or web address] Barbra Fitch MD Primary Care Provider [phone] Barbra Fitch MD Primary Care Provider [phone] Mari Juarez MD Primary Care Provider [phone] Encounter Details Date Type Department Care Team (Late st Contact Info) Description 09/12/2019 Procedure Pass [place] Admitting Dept - [facility] Department [address] [place] [address] Social History Tobacco Use Types Packs/Day Years [...] documented as of this encounter Care Teams Industrial Property Appraiser Relationship Specialty Start Date End Date Barbra Fitch MD [email or web address] PCP - General Family Medicine 04/27/18 09/29/19 Barbra Fitch MD [email or web address] PCP - General Family Medicine 09/30/19 11/16/22 Mari Juarez MD [facility] [place] [address] PCP - General Internal Medicine 11/17/22 Jack Junior MD [address] [place] [address] [email or web address] Historical LMR Provider 08/15/17 11/02/21 Aryan Arriaga MD [address] [place] [address] [address] [place] [address] Historical LMR Provider 08/15/17 11/02/21 Dulce Maria Odom MD [email or web address] Historical LMR Provider 08/15/17 2 documented as of this encounter Additional Source Comments The information contained in this document represents components of the legal health record. It is not the complete legal health record.[facility]
--- OUTSIDE RECORDS SUMMARY | 2025-07-14 10:51 | XMS_ITS | Encounter Summary ---
Author Organization [facility] Address [address] [place] [address] Phone Care Team Providers Care Chemist Food Name Role Phone Barbra Fitch MD Primary Care Provider [phone] Mari Juarez MD Primary Care Provider [phone] Encounter Details Date Type Department Care Team (Late st Contact Info) Description 12/24/2021 Procedure Pass [address] [place] [address] Social History Tobacco Use Types Packs/Day Years [...] documented as of this encounter Care Teams Chemist Food Relationship Specialty Start Date End Date Barbra Fitch MD [email or web address] PCP - General Family Medicine 09/30/19 Mari Juarez MD [address] [facility] [place] [address] PCP - General Internal Medicine 11/17/22 documented as of this encounter Additional Source Comments The information contained in this document represents components of the legal health record. It is not the complete legal health record.[facility]
--- OUTSIDE RECORDS SUMMARY | 2025-07-14 10:51 | XMS_ITS | Encounter Summary ---
Author Organization [facility] Address [address] [place] [address] Phone Care Team Providers Care Child Support Officer Name Role Phone Mari Juarez MD Primary Care Provider [phone] Encounter Details Date Type Department Care Team (Late st Contact Info) Description 10/31/2024 Transcribe Orders Virtual Department [address] [place] [address] Mari Juarez MD [facility] [place] [address] Breast screening (Primary Dx) Social History Tobacco [...] as of this encounter Plan of Treatment Scheduled Orders Name Type Priority Associated Diagnoses Orde r Schedule Mammogram Screening (Bilateral) Imaging Routine Breast screening Expected: 12/01/2024, Expires: 10/31/2025 documented as of this encounter Visit Diagnoses Diagnosis Breast screening- Primary Breast screening, unspecified documented in this encounter Additional Health Concerns Assessment Noted Time PHQ-2 Depression Total Score: 1 09/28/20 20 8:20 PM EST documented as of this encounter Care Teams Child Support Officer Relationship Specialty Start Date End Date Mari Juarez MD [address] [facility] [place] [address] PCP - General Internal Medicine 11/17/22 documented as of this encounter Additional Source Comments The information contained in this document represents components of the legal health record. It is not the complete legal health record.[facility]
--- OUTSIDE RECORDS SUMMARY | 2025-07-14 10:51 | XMS_ITS | Encounter Summary ---
Author Organization [facility] Address [address] [employer] [address] [place] [address] Phone Care Team Providers Care Produce Shipper Name Role Phone Jack Junior MD Unavailable Aryan Arriaga MD Unavailable [phone] [place] Maria Odom MD Unavailable [email or web address] Barbra Fitch MD Primary Care Provider [phone] Barbra Fitch MD Primary Care Provider [phone] Mari Juarez MD Primary Care Provider [phone] Encounter Details Date Type Department Care Team (Late st Contact Info) Description 08/11/2019 Ancillary Orders [facility],Outside Imaging [address] [place], [place] [id number] System, Provider Not In, [place] [address] Social History Tobacco Use Types Packs/Day Years Used Date Smoking Tobacco: Every Day Cigarettes 0.3 28.1 Started: 06/23/1997 Smokeless Tobacco: Never Alcohol Use [...] PACS storage only and not for interpretation. us Provider Not In System PhD IMG OUTSIDE IMAGING W /OUT INTERPRETATION Final Result * US Breast Outside (No Interpretation) (01/19/2018 12:00 AM EDT) Narrative SYSTEMGENERATED, DOCUMENTATION - 08/11/2019 5:06 PM EDT This study is for PACS storage only and not for interpretation. us Provider Not In System PhD IMG OUTSIDE IMAGING W /OUT INTERPRETATION Final Result * US Breast Outside (No Interpretation) (01/05/2018 12:05 AM EDT) Narrative SYSTEMGENERATED, DOCUMENTATION - 08/11/2019 5:06 PM EDT This study is for PACS storage only and not for interpretation. us Provider Not In System PhD IMG OUTSIDE IMAGING W /OUT INTERPRETATION Final Result * Mammogram Outside (No Interpretation) (01/05/2018 12:00 AM EDT) Narrative SYSTEMGENERATED, DOCUMENTATION - 08/11/2019 5:05 PM EDT This study is for PACS storage only and not for interpretation. us Provider Not In System PhD IMG OUTSIDE IMAGING W /OUT INTERPRETATION Final Result documented in this encounter Visit Diagnoses Not on filedocumented in this encounter Additional Health Concerns Assessment Noted Time PHQ-2 Depression Total Score: 0 06/23/20 19 3:05 PM EDT documented as of this encounter Care Teams Produce Shipper Relationship Specialty Start Date End Date Barbra Fitch MD [email or web address] PCP - General Family Medicine 04/27/18 09/29/19 Barbra Fitch MD [email or web address] PCP - General Family Medicine 09/30/19 11/16/22 Mari Juarez MD [facility] [place] [address] PCP - General Internal Medicine 11/17/22 Jack Junior MD [address] [place] [address], [facility] [address] [place] [address] [email or web address] Historical LMR Provider 08/15/17 11/02/21 Aryan Arriaga MD [address] [place] [address] [address] [place] [address] [email or web address] Historical LMR Provider 08/15/17 11/02/21 Dulce Maria Odom MD [email or web address] Historical LMR Provider 08/15/17 2 documented as of this encounter Additional Source Comments The information contained in this document represents components of the legal health record. It is not the complete legal health record.[facility]
--- OUTSIDE RECORDS SUMMARY | 2025-07-14 10:51 | XMS_ITS | Encounter Summary ---
Author Organization [facility] Address [address] [facility] [address] [address] [place] [address] Phone Care Team Providers Care Ebd Special Education Teacher Name Role Phone Jack Junior MD Unavailable Aryan Arriaga MD Unavailable Dulce Maria Odom MD Unavailable [email or web address] Claire Dorsey MD Primary Care Provider [phone] Dayanara Cruz SUPER[employer]OR [employer] Primary Care Provider [phone] Barbra Fitch MD Primary Care Provider Barbra Fitch MD Primary Care Provider Mari Juarez MD Primary Care Provider [phone] Encounter Details Date Type Department Care Team (Late st Contact Info) Description 12/30/2017 Transcribe Orders [address] [place] [address] Claire Dorsey MD [address] [place] [address] Anemia, unspecified type (Primary Dx); Fatigue, unspecified type; Avitaminosis D; Routine general medical examination at a health care facility Social History Tobacco Use Types Packs/Day Years Used Date Smoking Tobacco: Never Assessed Comments Unknown Sex and Gender Information Value Date Recorded [...] (12/30/2017 10:06 AM EST) HDL 72 mg/dL [facility] Comment: Interpretation: Risk Level Females Decreased >55mg/dL Average 50-55 mg/dL Increased <50 mg/dL CHOLESTEROL 191 0 - 240 mg/dL [facility] TRIGLYCERIDES 61 30 - 160 mg/dL [facility] LDL 107 50 - 129 mg/dL [facility] Comment: LDL levels in terms of risk for coronary heart disease: <100 mg/dL: Optimal 100-129 mg/dL: Near or above optimal 130-159 mg/dL: Borderline high 160-189 mg/dL: High >190 mg/dL: Very High CARDIAC RISK RATIO 2.7(L) 3.3 - 4.4 [facility] Blood 12/30/2017 10:0 6 AM EST 12/30/2017 10:08 AM EST us Claire Dorsey MD LAB BLOOD ORDERABLES Final R esult Performing Organization Address City/[facility]/ZIP Co de Phone Number [address] [address] * (ABNORMAL) Folate (12/30/2017 10:06 AM EST) FOLIC ACID >20.0(H) 4.2 - 19.9 ng/mL [facility] Blood 12/30/2017 10:0 6 AM EST 12/30/2017 10:08 AM EST Claire Dorsey MD LAB BLOOD ORDERABLES Final R esult Performing Organization Address City/[facility]/ZIP Co de Phone Number [address] [address] * Vitamin B12 (12/30/2017 10:06 AM EST) VITAMIN B12 582 243 - 894 pg/mL [facility] Blood 12/30/2017 10:0 6 AM EST 12/30/2017 10:08 AM EST us Claire Dorsey MD LAB BLOOD ORDERABLES Final R esult Performing Organization Address [facility] Co de Phone Number [address] [address] * (ABNORMAL) 25-OH vitamin D (12/30/2017 10:06 AM EST) 25 OH VIT D (TOTAL) 20(L) 30 - 1,000 ng/mL [facility] Blood 12/30/2017 10:0 6 AM EST 12/30/2017 10:08 AM EST us Claire Dorsey MD LAB BLOOD ORDERABLES Final R esult Performing Organization Address [facility] Co de Phone Number [address] [address] * TSH with reflex (12/30/2017 10:06 AM EST) TSH 1.75 0.27 - 4.20 uIU/mL [facility] Blood 12/30/2017 10:0 6 AM EST 12/30/2017 10:08 AM EST us Claire Dorsey MD LAB BLOOD ORDERABLES Final R esult Performing Organization Address [facility] Co de Phone Number [address] [address] * (ABNORMAL) Comprehensive metabolic panel (12/30/2017 10:06 AM EST) SODIUM 137 133 - 146 mmol/L [facility] POTASSIUM 3.9 3.3 - 5.1 mmol/L [facility] CHLORIDE 100 96 - 108 mmol/L [facility] CO2 25 21 - 35 mmol/L [facility] BUN 17 6 - 19 mg/dL [facility] CREATININE 0.70 0.5 - 1.5 mg/dL [facility] GLUCOSE 96 70 - 99 mg/dL [facility] ALBUMIN 4.7 3.9 - 4.8 g/dL [facility] TOTAL PROTEIN 7.7 6.5 - 8.0 g/dL [facility] CALCIUM 9.5 8.4 - 10.3 mg/dL [facility] ALKALINE PHOSPHATASE 30(L) 39 - 117 U/L [facility] TOTAL BILIRUBIN 0.5 0.0 - 1.2 mg/dL [facility] AST 14 0 - 37 U/L [facility] ALT 13 0 - 40 U/L [facility] GLOBULIN 3.0 1 - 4.8 g/dL [facility] EGFR 115 >59 mL/min/1.7 3m2 [facility] Comment:If patient is black, multiply result by 1.159. The eGFR calculation has changed from the MDRD equation to the CKD-EPI equation as of December 29, 2017. ANION GAP 16 10 - 20 mmol/L [facility] Blood 12/30/2017 10:0 6 AM EST 12/30/2017 10:08 AM EST Claire Dorsey MD LAB BLOOD ORDERABLES Final R esult [address] [address] * CBC (12/30/2017 10:06 AM EST) WBC 5.76 3.40 - 11.20 K/uL [facility] RBC 4.17 3.80 - 4.80 M/uL [facility] HGB 12.9 12.0 - 15.0 g/dL [facility] HCT 38.6 36.0 - 46.0 % [facility] PLT 214 130 - 400 K/uL [facility] MCV 92.6 79.0 - 98.0 fL [facility] MCH 30.9 27.0 - 34.8 pg [facility] MCHC 33.4 31.5 - 36.0 g/dL [facility] RDW 12.5 10.8 - 14.6 % [facility] MPV 10.3 9.4 - 12.4 fl [facility] NRBC 0.00 /100 WBCs [facility] ABSOLUTE NRBC 0.00 K/uL [facility] Blood 12/30/2017 10:0 6 AM EST 12/30/2017 10:08 AM EST us Claire Dorsey MD LAB BLOOD ORDERABLES Final R esult [address] [address] documented in this encounter Visit Diagnoses Diagnosis Anemia, unspecified type- Primary Fatigue, unspecified type Avitaminosis D Unspecified vitamin D deficiency Routine general medical examination at a health care facility documented in this encounter Care Teams Ebd Special Education Teacher Relationship Specialty Start Date End Date Claire Dorsey MD [address] [place] [address] PCP - General Internal Medicine 12/30/17 04/07/18 Dayanara Cruz NP [address] [place] [address] [email or web address] PCP - General Family Medicine 04/08/18 04/26/18 Barbra Fitch MD [address] [place] [address] [email or web address] PCP - General Family Medicine 04/27/18 09/29/19 Barbra Fitch MD [address] [place] [address] [email or web address] PCP - General Family Medicine 09/30/19 11/16/22 Mari Juarez MD [facility] [place] [address] PCP - General Internal Medicine 11/17/22 Jack Junior MD [address] [place] [address], [facility] [address] [place] [address] Historical LMR Provider 08/15/17 11/02/21 Aryan Arriaga MD [address] [place] [address] [address] [place] [address] Historical LMR Provider 08/15/17 11/02/21 Dulce Maria Odom MD [email or web address] Historical LMR Provider 08/15/17 2 documented as of this encounter Additional Source Comments The information contained in this document represents components of the legal health record. It is not the complete legal health record.[facility]
== END 2025-07-14 10:16 | disposition home or self-care (01) ==
LOC: HO.MAMMO 10:15
PROVIDERS: PCP Internal Medicine; Visit Provider Internal Medicine Medical Oncology
DX: Z13.820 Encounter for screening for osteoporosis (principal); D05.02 Lobular carcinoma in situ of left breast
CPT/HCPCS: 77080

== ENCOUNTER → 2025-07-14 10:30 | Outpatient (BNV) | payer OTHER, SELFPAY | PROVIDERS: PCP Internal Medicine; Visit Provider Radiology Diagnostic Radiology | DX: E28.39 Other primary ovarian failure (principal) | CPT/HCPCS: 77080 ==

== ENCOUNTER 2025-07-24 13:20 | Outpatient (REF) | payer OTHER, SELFPAY | END 2025-07-24 13:21 | disposition home or self-care (01) | LOC: HO.LNP 13:20 | PROVIDERS: PCP Internal Medicine; Visit Provider Obstetrics & Gynecology | DX: Z01.419 Encounter for gynecological examination (general) (routine) without abnormal findings (principal); Z11.51 Encounter for screening for human papillomavirus (HPV) | CPT/HCPCS: 87626; 88175; 99396 ==

== ENCOUNTER 2025-07-24 13:20 | Outpatient (AMB) | payer OTHER, SELFPAY ==
--- NOTE | 2025-07-24 13:26 | A.OFFVIS_ITS ---
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 Employment Security Officer: Employment Security Officer Present (Raina) Accompanied by: Self / Same As Patient Allergies shellfish derived (shellfish) Allergy (Verified 07/24/25 13:30) Hives sulfamethoxazole (From Bactrim) Adverse Reaction (Intermediate, Verified 07/24/25 13:30) Vomiting trimethoprim (From Bactrim) Adverse Reaction (Intermediate, Verified 07/24/25 13:30) Vomiting lorazepam (From Ativan) Adverse Reaction (Mild, Verified 07/24/25 13:30) Vomiting Is last menstrual period known: Yes (Before ablation in 2015) Post menopausal: No Patient : No HPI Comments Details: Presenting for annual exam. No complaints. Last Pap/HPV was negative in 05/15 Last breast MRI was BI-RADS 1 for the right left BI-RADS 4 2 status post biopsy and lumpectomy showing local lobular carcinoma in Situ and atypical ductal hyperplasia negative margins [facility] Medical History Personal history of cardiac murmur Vitamin D deficiency FH: breast cancer Left breast mass Dysmenorrhea Normal Pap smear Calcific tendinitis Surgical History History of lumpectomy of left breast (04/19/25) History of endometrial ablation (2015) H/O hernia repair Family History Mother Breast cancer, Onset Age: 28 Father Asthma Substance use disorder Maternal Grandmother Breast cancer, Onset Age: 74 Paternal Aunt Breast cancer, Onset Age: 60 Paternal Uncle Substance use disorder Paternal Grandfather Substance use disorder Social History Household Members: Spouse and Children Household Members Other:: lives with partner, trying to quit smoking, cleans exercise, 2 boys (18,13) Housing: Apartment Alcohol intake: never Patient Tobacco Use Status: Current everyday Tobacco user Tobacco use type: Cigarette Years Smoked: 23 e-Cigarette/Vaping Use: Never Used Substance Use Type: Marijuana service: No Current occupational status: employed Cognitive needs: No Hearing needs: No Vision needs: No Female Reproductive History Menstrual Age of Menarche: 13 control method: none Total pregnancies: 4 Full term: 2 Date of last pap smear: 05/20/21 (negative pap smear, negative hpv ) Date of Mammogram: 03/16/25 (bi rad 1) Date of last Bone Density Screenin07/14/25 Review of Systems Const All systems reviewed & are unremarkable except as noted in HPI and below Card Reports as per HPI Resp Reports as per HPI GI Reports as per HPI and Reports no additional complaints Reports as per HPI Physical Exam Const General: cooperative, healthy appearing and comfortable Chest Chest palpation & inspection: normal inspection of the chest and normal palpation of entire chest wall Breast/axilla inspection: normal inspection of the breasts and normal inspection of the axillae Breast/axilla palpation: normal palpation of the breasts, normal palpation of the axillae and no axillary lymphadenopathy Resp Effort & Inspection: normal respiratory effort Auscultation: clear to auscultation bilaterally Percussion: percussion normal Cardio Palpation: normal PMI Rate: regular rate Rhythm: regular rhythm Heart sounds: no murmurs and no rubs Peripheral pulses: Peripheral pulses 2+ throughout GI Inspection: Yes normal to inspection Palpation (GI): Soft to palpation, nontender, no guarding, not rigid and No hepatosplenomegaly present Percussion: Yes normal to percussion Auscultation: normal bowel sounds Rectal Exam - Female: deferred General: Yes bladder normal to palpation External Female Exam: No lesion Speculum Exam - Vagina: normal appearance of the vagina, normal palpation, normal vaginal discharge and not erythematous Speculum Exam - Cervix: normal appearance of the cervix and normal palpation Bimanual exam- vagina & uterus: normal bimanual exam, normal palpation, uterine size normal, bladder normal to palpation, consistency normal and normal palpation Bimanual Exam- Adnexa, other: normal adnexae, no masses and no tenderness Assessment & Plan Assessment & Plan (1) Well woman exam: Comment: 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 The patient is high-risk for breast cancer status post lumpectomy has been followed up by Dr. Seo, Mammogram screening/MRI is being ordered by him Counseled the patient about the recommended dietary allowance of 1000 mg of Calcium & 600 IU of vitamin D. The patient was instructed to perform monthly self-breast exams and to schedule an annual exam in a year; All questions answered and the patient verbalized understanding. Instructed the patient to schedule annual exam in a year Coding Level of Care Code Est Pt Prev Care 40-64y(69031) Diagnoses Well woman exam Z01.419
[2025-07-24 13:33] VITALS: BP 110/62; BMI 20.9
--- OUTSIDE RECORDS SUMMARY | 2025-07-24 14:48 | XMS_ITS | Encounter Summary ---
Author Organization [facility] Address [address] [place] [address] Phone Care Team Providers Care Senior Reservoir Engineer Name Role Phone Jack Junior MD Unavailable Aryan Arriaga MD Unavailable [phone] Dulce Maria Odom MD Unavailable [email or web address] Barbra Fitch MD Primary Care Provider Mari Juarez MD Primary Care Provider [phone] Encounter Details Date Type Department Care Team (Late st Contact Info) Description 08/26/2021 Procedure Pass [facility] - [address] [place] [address] Social History Tobacco Use Types Packs/Day Years [...] documented as of this encounter Care Teams Senior Reservoir Engineer Relationship Specialty Start Date End Date Barbra Fitch MD [email or web address] PCP - General Family Medicine 09/30/19 11/16/22 Mari Juarez MD [address] [place] [address] PCP - General Internal Medicine 11/17/22 Jack Juniro MD [address] [place] [address] [email or web address] Historical LMR Provider 08/15/17 11/02/21 Aryan Arriaga MD [address] [place] [address] [address] [place] [address] Historical LMR Provider 08/15/17 11/02/21 Dulce Maria Odom MD Historical LMR Provider 08/15/17 2 documented as of this encounter Additional Source Comments The information contained in this document represents components of the legal health record. It is not the complete legal health record.[facility]
--- OUTSIDE RECORDS SUMMARY | 2025-07-24 14:48 | XMS_ITS | Encounter Summary ---
Author Organization [facility] Address [address] [place] [address] Phone Care Team Providers Care Health Information Internship Name Role Phone Jack Junior MD Unavailable Aryan Arriaga MD Unavailable [phone] Dulce Maria Odom MD Unavailable [email or web address] Barbra Fitch MD Primary Care Provider Mari Juarez MD Primary Care Provider [phone] Encounter Details Date Type Department Care Team (Late st Contact Info) Description 10/01/2020 Procedure Pass [facility] - [address] [place] [address] Social History Tobacco Use Types Packs/Day Years [...] documented as of this encounter Care Teams Health Information Internship Relationship Specialty Start Date End Date Barbra Fitch MD [email or web address] PCP - General Family Medicine 09/30/19 11/16/22 Mari Juarez MD [facility] [place] [address] PCP - General Internal Medicine 11/17/22 Jack Junior MD [address] [place] [address] [email or web address] Historical LMR Provider 08/15/17 11/02/21 Aryan Arriaga MD [address] [place] [address] [address] [place] [address] Historical LMR Provider 08/15/17 11/02/21 Dulce Maria Odom MD [email or web address] Historical LMR Provider 08/15/17 2 documented as of this encounter Additional Source Comments The information contained in this document represents components of the legal health record. It is not the complete legal health record.[facility]
--- OUTSIDE RECORDS SUMMARY | 2025-07-24 14:48 | XMS_ITS | Encounter Summary ---
Author Organization [facility] Address [address] [place] [address] Phone Care Team Providers Care Professor Of Finance Name Role Phone Mari Juarez MD Primary Care Provider [phone] Encounter Details Date Type Department Care Team (Late st Contact Info) Description 10/31/2024 Transcribe Orders Virtual Department [address] [place] [address] Mari Juarez MD [facility] [place] [address] Breast screening (Primary Dx) Social History Tobacco [...] documented as of this encounter Care Teams Professor Of Finance Relationship Specialty Start Date End Date Mari Juarez MD [address] [facility] [place] [address] PCP - General Internal Medicine 11/17/22 documented as of this encounter Additional Source Comments The information contained in this document represents components of the legal health record. It is not the complete legal health record.[facility]
--- OUTSIDE RECORDS SUMMARY | 2025-07-24 14:48 | XMS_ITS | Encounter Summary ---
Author Organization [facility] Address [address] [place] [address] Phone Care Team Providers Care Weigher Production Name Role Phone Barbra Fitch MD Primary Care Provider [phone] Mari Juarez MD Primary Care Provider [phone] Encounter Details Date Type Department Care Team (Late st Contact Info) Description 09/01/2022 Procedure Pass [address] [place] [address] Social History Tobacco Use Types Packs/Day Years [...] documented as of this encounter Care Teams Weigher Production Relationship Specialty Start Date End Date Barbra Fitch MD [email or web address] PCP - General Family Medicine 09/30/19 Mari Juarez MD [facility] [place] [address] PCP - General Internal Medicine 11/17/22 documented as of this encounter Additional Source Comments The information contained in this document represents components of the legal health record. It is not the complete legal health record.[facility]
--- OUTSIDE RECORDS SUMMARY | 2025-07-24 14:48 | XMS_ITS | Encounter Summary ---
Author Organization [facility] Address [address] [place] [address] Phone Care Team Providers Care House Designer Name Role Phone Jack Junior MD Unavailable Aryan Arriaga MD Unavailable [phone] Dulce Maria dOom MD Unavailable [email or web address] Barbra Fitch MD Primary Care Provider [phone] Barbra Fitch MD Primary Care Provider [phone] Mari Juarez MD Primary Care Provider [phone] Encounter Details Date Type Department Care Team (Late st Contact Info) Description 09/12/2019 Procedure Pass OR Admitting Dept - [facility] Department [address] [place] [address] Social History Tobacco Use Types Packs/Day Years [...] documented as of this encounter Care Teams House Designer Relationship Specialty Start Date End Date Barbra Fitch MD [email or web address] PCP - General Family Medicine 04/27/18 09/29/19 Barbra Fitch MD [email or web address] PCP - General Family Medicine 09/30/19 11/16/22 Mari Juarez MD [facility] [place] [address] PCP - General Internal Medicine 11/17/22 Jack Junior MD [address] [place] [address] [email or web address] Historical LMR Provider 08/15/17 11/02/21 Aryan Arriaga MD [address] [place] [address] [address] [place] [address] Historical LMR Provider 08/15/17 11/02/21 Dulce Maria Odom MD [email or web address] Historical LMR Provider 08/15/17 2 documented as of this encounter Additional Source Comments The information contained in this document represents components of the legal health record. It is not the complete legal health record.[facility]
--- OUTSIDE RECORDS SUMMARY | 2025-07-24 14:48 | XMS_ITS | Encounter Summary ---
Author Organization [facility] Address [address] [place] [address] Phone Care Team Providers Care Community Health Program Representative Name Role Phone Barbra Fitch MD Primary Care Provider [phone] Mari Juarez MD Primary Care Provider [phone] Encounter Details Date Type Department Care Team (Late st Contact Info) Description 12/24/2021 Procedure Pass [address] [place] [address] Social History Tobacco Use Types Packs/Day Years [...] documented as of this encounter Care Teams Community Health Program Representative Relationship Specialty Start Date End Date Barbra Fitch MD [email or web address] PCP - General Family Medicine 09/30/19 Mari Juarez MD [address] [facility] [place] [address] PCP - General Internal Medicine 11/17/22 documented as of this encounter Additional Source Comments The information contained in this document represents components of the legal health record. It is not the complete legal health record.[facility]
--- OUTSIDE RECORDS SUMMARY | 2025-07-24 14:49 | XMS_ITS | Encounter Summary ---
Author Organization [facility] Address [address] [place] [address] Phone Care Team Providers Care Him Clerk Name Role Phone Jack Junior MD Unavailable Aryan Arriaga MD Unavailable [phone] Dulce Maria Odom MD Unavailable [email or web address] Barbra Fitch MD Primary Care Provider [phone] Barbra Fitch MD Primary Care Provider [phone] Mari Juarez MD Primary Care Provider [phone] Encounter Details Date Type Department Care Team (Late st Contact Info) Description 08/11/2019 Ancillary Orders [facility] [address] [place], [place] [id number] System, Provider Not In, [place] [address] Social History Tobacco Use Types Packs/Day Years [...] documented as of this encounter Care Teams Him Clerk Relationship Specialty Start Date End Date Barbra Fitch MD [email or web address] PCP - General Family Medicine 04/27/18 09/29/19 Barbra Fitch MD [email or web address] PCP - General Family Medicine 09/30/19 11/16/22 Mari Juarez MD [facility] [place] [address] PCP - General Internal Medicine 11/17/22 Jack Junior MD [address] [place] [address], [facility] [address] [place] [address] [email or web address] Historical LMR Provider 08/15/17 11/02/21 Aryan Arriaga MD [address] [place] [address] [address] [place] [address] [email or web address] Historical LMR Provider 08/15/17 11/02/21 Dulce Maria Odom MD [email or web address] Historical LMR Provider 08/15/17 2 documented as of this encounter Additional Source Comments The information contained in this document represents components of the legal health record. It is not the complete legal health record.[facility]
--- OUTSIDE RECORDS SUMMARY | 2025-07-24 14:49 | XMS_ITS | Clinical Summary ---
Author Organization [facility] Address [address] [place] [address] Phone Care Team Providers Care Perfect Binder Feeder Offbearer Name Role Phone Mari Juarez MD Primary Care Provider [phone] Allergies Active Allergy Reactions Criticality Noted Date [...] this topic Medical Devices Implanted Type Area Hydroelectric Operator Device Identifier Shelf Expiration Date Model / Serial / Lot Mesh Graft 4.5in Ventralight St Polypropylene Hernia Monofil Hydrogel Echo Ps Positioning System Repair [place] - [id number] Implanted:Qty: 1 on 09/12/2019 by Ruth Mcgovern MD at [facility] Abdomen DAVOL 07/23/2021 [id number] / / [id number] Device Fixation 37mm Optifix Pdlla Smooth Head Hollow Core Angled Tip Absorbable 30 Fastner Bx/5ea - [id number] Implanted:Qty: 1 on 09/12/2019 by Ruth Mcgovern MD at [facility] Abdomen DAVOL 10/22/2020 [id number] / / [id number] Procedures Procedure Name Priority Date/Time Associated Diagnosis [...] SEE NARRATIVE - 03/02/2018 10:32 AM EDT [address] [address] Inspecting Supervisor: Yasmeen Wang MD LANDSCAPER HELPER Cytology Report FINAL DIAGNOSIS A. PAP SMEAR [...] advised. This HPV test was performed at [facility], [address] [place] [address]. The accuracy and precision of this test has been verified in the Cytopathology laboratory of the [facility]. This test has not been cleared or approved by the U.S. Food and Drug Administration (FDA). CLINICAL HISTORY Date of Last Menstrual Period: N/A Treatment History: Other: Had endometrial ablation. Other Clinical Conditions: Screening Pap SPECIMEN SOURCE A: PAP SMEAR (SUREPATH) C Patient Name: FUNMILAYO HERNANDEZ : 1985 (Age: 32) Sex: F Institution: [facility] Location: [facility] Date of Collection: 02/24/2018 Date of [...] Advance Directives For more information, please contact: [phone] (9AM - 5PM [facility], Thursday-Thursday) Documents on File Type Date Recorded Patient Professor Of Religious Studies Expl anation Healthcare Proxy 09/13/2019 10:57 AM HEAL TH CARE PROXY * Full Code (Presumed) (Latest Code Status on File) Date Activated Date Inactivated Comments 09/12/2019 7:59 AM 09/12/2019 2:23 PM Care Teams Perfect Binder Feeder Offbearer Relationship Specialty Start Date End Date Mari Juarez MD [address] [facility] [place] [address] PCP - General Internal Medicine 11/17/22 Additional Source Comments The information contained in this document represents components of the legal health record. It is not the complete legal health record.[facility]
--- OUTSIDE RECORDS SUMMARY | 2025-07-24 14:49 | XMS_ITS | Encounter Summary ---
Author Organization [facility] Address [address] [place] [address] Phone Care Team Providers Care Motor Expert Name Role Phone Mari Juarez MD Primary Care Provider [phone] Encounter Details Date Type Department Care Team (Late st Contact Info) Description 11/16/2023 Transcribe Orders Virtual Department [address] [place] [address] Mari Juarez MD [facility] [place] [address] Encounter for screening mammogram for malignant neoplasm [...] documented as of this encounter Care Teams Motor Expert Relationship Specialty Start Date End Date Mari Juarez MD [address] [place] [address] [place] [address] PCP - General Internal Medicine 11/17/22 documented as of this encounter Additional Source Comments The information contained in this document represents components of the legal health record. It is not the complete legal health record.[facility]
--- OUTSIDE RECORDS SUMMARY | 2025-07-24 14:49 | XMS_ITS | Encounter Summary ---
Author Organization [facility] Address [address] [place] [address] Phone Care Team Providers Care Eyelet Cutter Name Role Phone Jack Junior MD Unavailable Aryan Arriaga MD Unavailable Dulce Maria Odom MD Unavailable [email or web address] Claire Dorsey MD Primary Care Provider Dayanara Cruz LINDERMAN OPERATOR Primary Care Provider [phone] Barbra Fitch MD Primary Care Provider Barbra Fitch MD Primary Care Provider Mari Juarez MD Primary Care Provider [phone] Encounter Details Date Type Department Care Team (Late st Contact Info) Description 12/30/2017 Transcribe Orders [address] [place] [address] Claire Dorsey MD [address] [place] [address] Anemia, unspecified type (Primary Dx); Fatigue, unspecified [...] (12/30/2017 10:06 AM EST) HDL 72 mg/dL [facility] Comment: Interpretation: Risk Level Females Decreased >55mg/dL Average 50-55 mg/dL Increased <50 mg/dL CHOLESTEROL 191 0 - 240 mg/dL [facility] TRIGLYCERIDES 61 30 - 160 mg/dL [facility] LDL 107 50 - 129 mg/dL [facility] Comment: LDL levels in terms of risk for coronary heart disease: <100 mg/dL: Optimal 100-129 mg/dL: Near or above optimal 130-159 mg/dL: Borderline high 160-189 mg/dL: High >190 mg/dL: Very High CARDIAC RISK RATIO 2.7(L) 3.3 - 4.4 C [facility] Blood 12/30/2017 10:0 6 AM EST 12/30/2017 10:08 AM EST us Claire Dorsey MD LAB BLOOD ORDERABLES Final R esult Performing Organization Address City/[facility]/ZIP Co de Phone Number [address] [address] * (ABNORMAL) Folate (12/30/2017 10:06 AM EST) FOLIC ACID >20.0(H) 4.2 - 19.9 ng/mL [facility] Blood 12/30/2017 10:0 6 AM EST 12/30/2017 10:08 AM EST Claire Dorsey MD LAB BLOOD ORDERABLES Final R esult Performing Organization Address City/[facility]/ZIP Co de Phone Number [address] [address] * Vitamin B12 (12/30/2017 10:06 AM EST) VITAMIN B12 582 243 - 894 pg/mL [facility] Blood 12/30/2017 10:0 6 AM EST 12/30/2017 10:08 AM EST us Claire Dorsey MD LAB BLOOD ORDERABLES Final R esult Performing Organization Address [facility] Co de Phone Number [address] [address] * (ABNORMAL) 25-OH vitamin D (12/30/2017 10:06 AM EST) 25 [place] VIT D (TOTAL) 20(L) 30 - 1,000 ng/mL [facility] Blood 12/30/2017 10:0 6 AM EST 12/30/2017 10:08 AM EST us Claire Dorsey MD LAB BLOOD ORDERABLES Final R esult Performing Organization Address [facility] Co de Phone Number [address] [address] * TSH with reflex (12/30/2017 10:06 AM EST) TSH 1.75 0.27 - 4.20 uIU/mL [facility] Blood 12/30/2017 10:0 6 AM EST 12/30/2017 10:08 AM EST us Claire Dorsey MD LAB BLOOD ORDERABLES Final R esult Performing Organization Address [facility] Co de Phone Number [address] [address] * (ABNORMAL) Comprehensive metabolic panel (12/30/2017 10:06 AM EST) SODIUM 137 133 - 146 mmol/L [facility] POTASSIUM 3.9 3.3 - 5.1 mmol/L [facility] CHLORIDE 100 96 - 108 mmol/L [facility] CO2 25 21 - 35 mmol/L [facility] BUN 17 6 - 19 mg/dL [facility] CREATININE 0.70 0.5 - 1.5 mg/dL [facility] GLUCOSE 96 70 - 99 mg/dL [facility] ALBUMIN 4.7 3.9 - 4.8 g/dL [facility] TOTAL PROTEIN 7.7 6.5 - 8.0 g/dL [facility] CALCIUM 9.5 8.4 - 10.3 mg/dL [facility] ALKALINE PHOSPHATASE 30(L) 39 - 117 U/L [facility] TOTAL BILIRUBIN 0.5 0.0 - 1.2 mg/dL [facility] AST 14 0 - 37 U/L [facility] ALT 13 0 - 40 U/L [facility] GLOBULIN 3.0 1 - 4.8 g/dL [facility] EGFR 115 >59 mL/min/1.7 3m2 [facility] Comment:If patient is black, multiply result by 1.159. The eGFR calculation has changed from the MDRD equation to the CKD-EPI equation as of December 29, 2017. ANION GAP 16 10 - 20 mmol/L [facility] Blood 12/30/2017 10:0 6 AM EST 12/30/2017 10:08 AM EST Claire Dorsey MD LAB BLOOD ORDERABLES Final R esult [address] [address] * CBC (12/30/2017 10:06 AM EST) WBC 5.76 3.40 - 11.20 K/uL [facility] RBC 4.17 3.80 - 4.80 M/uL [facility] HGB 12.9 12.0 - 15.0 g/dL [facility] HCT 38.6 36.0 - 46.0 % [facility] PLT 214 130 - 400 K/uL [facility] MCV 92.6 79.0 - 98.0 fL [facility] MCH 30.9 27.0 - 34.8 pg [facility] MCHC 33.4 31.5 - 36.0 g/dL [facility] RDW 12.5 10.8 - 14.6 % [facility] MPV 10.3 9.4 - 12.4 fl [facility] NRBC 0.00 /100 WBCs [facility] ABSOLUTE NRBC 0.00 K/uL [facility] Blood 12/30/2017 10:0 6 AM EST 12/30/2017 10:08 AM EST us Claire Dorsey MD LAB BLOOD ORDERABLES Final R esult [address] [address] documented in this encounter Visit Diagnoses Diagnosis Anemia, unspecified type- Primary Fatigue, unspecified type Avitaminosis D Unspecified vitamin D deficiency Routine general medical examination at a health care facility documented in this encounter Care Teams Eyelet Cutter Relationship Specialty Start Date End Date Claire Dorsey MD [address] [place] [address] [email or web address] PCP - General Internal Medicine 12/30/17 04/07/18 Dayanara Cruz NP [address] [place] [address] [email or web address] PCP - General Family Medicine 04/08/18 04/26/18 Barbra Fitch MD [address] [place] [address] [email or web address] PCP - General Family Medicine 04/27/18 09/29/19 Barbra Fitch MD [address] [place] [address] [email or web address] PCP - General Family Medicine 09/30/19 11/16/22 Mari Juarez MD [facility] [place] [address] PCP - General Internal Medicine 11/17/22 Jack Junior MD [address] [place] [address], [facility] [address] [place] [address] [email or web address] Historical LMR Provider 08/15/17 11/02/21 Aryan Arriaga MD [address] [place] [address] [address] [place] [address] [email or web address] Historical LMR Provider 08/15/17 11/02/21 Dulce Maria Odom MD Historical LMR Provider 08/15/17 2 documented as of this encounter Additional Source Comments The information contained in this document represents components of the legal health record. It is not the complete legal health record.[facility]
--- OUTSIDE RECORDS SUMMARY | 2025-07-24 14:49 | XMS_ITS | Encounter Summary ---
Author Organization [facility] Address [address] [place] [address] Phone Care Team Providers Care Analysis Mgr Name Role Phone Mari Juarez MD Primary Care Provider [phone] Encounter Details Date Type Department Care Team (Late st Contact Info) Description 11/16/2023 Procedure Pass [facility] - [address] [place] [address] Social History Tobacco Use Types Packs/Day Years [...] documented as of this encounter Care Teams Analysis Mgr Relationship Specialty Start Date End Date Mari Juarez MD [facility] [place] [address] PCP - General Internal Medicine 11/17/22 documented as of this encounter Additional Source Comments The information contained in this document represents components of the legal health record. It is not the complete legal health record.[facility]
== END 2025-07-24 14:01 | disposition home or self-care (01) ==
LOC: HO.HWS 13:20
PROVIDERS: PCP Internal Medicine; Visit Provider Obstetrics & Gynecology
DX: Z01.419 Encounter for gynecological examination (general) (routine) without abnormal findings (principal)
CPT/HCPCS: 99396; 99459